=== PATIENT | male | born 1970 | race Caucasian/White ===

== ENCOUNTER → 2016-08-01 | Outpatient (CLI) | payer OTHER, BC ==
[~2016-08-01] MED LIST: ALBU1AER9 INH; HYDR25TA5 PO; LEVO150T9 PO; LSN40 PO; NRV/10 PO; OMEP20CA9 PO
[2016-08-01 13:10] LABS: HEMATOCRIT 42.8 % (42-52); MEAN CELL VOLUME 84.8 fL (80-100); MEAN CORPUSCULAR HEMOGLOBIN 26.1 pg (25-34); MEAN CORPUSCULAR HGB CONC 30.8 g/dl (32-36); MEAN PLATELET VOLUME 10.3 fL (7.4-10.4); PLATELET COUNT 277 K/uL (130-400); RED BLOOD COUNT 5.05 M/uL (4.7-6.1); WHITE BLOOD COUNT 7.38 K/uL (4.8-10.8)
[2016-08-01 13:25] LABS: ALT/SGPT 32 U/L (12-78); AST/SGOT 18 U/L (15-37); BLOOD UREA NITROGEN 11 mg/dl (7-18); BUN/CREATININE RATIO 12.2 (10-20); CALCIUM 8.5 mg/dl (8.5-10.1); CARBON DIOXIDE 31 mmol/L (21-32); CHLORIDE 105 mmol/L (98-107); CHOLESTEROL 127 mg/dl (0-200); CREATININE 0.92 mg/dl (0.60-1.40); GLUCOSE 86 mg/dl (70-99); POTASSIUM 4.5 mmol/L (3.5-5.1); SODIUM 139 mmol/L (136-145)
[2016-08-01 13:36] LABS: ALB/GLOB RATIO 0.9 (0.9-2); ALKALINE PHOSPHATASE 89 U/L (45-117); CHOLESTEROL/HDL RATIO 3.7; HDL CHOLESTEROL 34 mg/dl; LDL CHOLESTEROL CALCULATED 62 mg/dl; TRIGLYCERIDES 154 mg/dl (0-150); VERY LOW DENSITY LIPOPROT CALC 31 mg/dl
== END | disposition home or self-care (01) ==
LOC: C.LABBC 09:35
PROVIDERS: ATTEND Physician Assistant Medical
DX: Z00.00 Encounter for general adult medical examination without abnormal findings (principal); I12.9 Hypertensive chronic kidney disease with stage 1 through stage 4 chronic kidney disease, or unspecified chronic kidney disease; N18.9 Chronic kidney disease, unspecified; D64.9 Anemia, unspecified; K76.0 Fatty (change of) liver, not elsewhere classified; E03.9 Hypothyroidism, unspecified

== ENCOUNTER → 2017-04-20 | Outpatient (CLI) | payer OTHER ==
[2017-04-20 17:00] LABS: BASO % 0.3 %; BASO ABS # 0.03 K/uL (0-0.2); EOS % 1.5 %; EOS ABS # 0.15 K/uL (0-0.5); HEMATOCRIT 39.5 % (42-52); HEMOGLOBIN 12.5 g/dL (14.0-18.0); IG# 0.01 K/uL (0.00-0.02); LYMPH % 23.1 %; LYMPH ABS # 2.36 K/uL (1.2-3.4); MEAN CELL VOLUME 85.1 fL (80-100); MEAN CORPUSCULAR HEMOGLOBIN 26.9 pg (25-34); MEAN CORPUSCULAR HGB CONC 31.6 g/dl (32-36); MEAN PLATELET VOLUME 10.4 fL (7.4-10.4); MONO % 6.7 %; MONO ABS # 0.68 K/uL (0.11-0.59); NEUT % 68.3 %; NEUT ABS # 6.98 K/uL (1.4-6.5); PLATELET COUNT 340 K/uL (130-400); RED CELL DISTRIBUTION WIDTH CV 15.6 % (11.5-14.5); RED CELL DISTRIBUTION WIDTH SD 48.4 fL (36.4-46.3); WHITE BLOOD COUNT 10.21 K/uL (4.8-10.8)
[2017-04-20 17:07] LABS: BLOOD UREA NITROGEN 11 mg/dl (7-18); CALCIUM 9.2 mg/dl (8.5-10.1); CARBON DIOXIDE 32 mmol/L (21-32); CREATININE 0.99 mg/dl (0.60-1.40); GLUCOSE 120 mg/dl (70-99); POTASSIUM 3.7 mmol/L (3.5-5.1); SODIUM 139 mmol/L (136-145)
== END | disposition home or self-care (01) ==
LOC: C.LABBC 12:35
PROVIDERS: ATTEND Internal Medicine Geriatric Medicine
DX: R80.9 Proteinuria, unspecified (principal); E03.9 Hypothyroidism, unspecified; D64.9 Anemia, unspecified; I10 Essential (primary) hypertension

== ENCOUNTER → 2017-05-20 | Outpatient (CLI) | payer OTHER ==
[2017-05-20 14:28] LABS: HEMOGLOBIN A1C 6.2 % (4.5-5.6)
== END | disposition home or self-care (01) ==
LOC: C.LABBC 11:23
PROVIDERS: ATTEND Physician Assistant Medical
DX: R73.9 Hyperglycemia, unspecified (principal)

== ENCOUNTER 2021-01-10 09:35 | Inpatient (IN) ==
[2021-01-10] MEDS ORDERED: ALBUT/IPRATROP 3MG/0.5MG NEB 3 ML VIAL NEB ONE (09:49)
--- NOTE | 2021-01-10 10:17 | Emergency Department Note ---
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 (98-107) mmol/L Carbon Dioxide (21-32) mmol/L Anion Gap (3-11) BUN (7-18) mg/dl Creatinine (0.6-1.4) mg/dl Est Cr Clr Drug Dosing ml/min Est GFR ( Amer) ml/min Est GFR (Non-Af Amer) ml/min BUN/Creatinine Ratio (10-20) Glucose (70-99) mg/dl Lactate (0.4-2.0) mmol/L Calcium (8.5-10.1) mg/dl Magnesium (1.8-2.4) mg/dl Total Bilirubin (0.2-1) mg/dl AST (15-37) U/L ALT (12-78) U/L Alkaline Phosphatase (45-117) U/L Troponin I (0-0.045) ng/ml C-Reactive Protein (0-0.29) mg/dl NT-Pro-B Natriuret Pep (0-900) pg/ml Total Protein (6.4-8.2) gm/dl Albumin (3.4-5.0) gm/dl Globulin (2.5-4.0) gm/dl Albumin/Globulin Ratio (0.9-2) Procalcitonin (0-0.5) ng/ml Urine Color Yellow Urine Appearance Clear (Clear) Urine pH 5.5 (4.5-7.5) Ur Specific [place] 1.014 (1.000-1.030) Urine Protein 2+ H (Negative) Urine Glucose (UA) Negative (Negative) Urine Ketones Negative (Negative) Urine Blood Negative (Negative) Urine Nitrite Negative (Negative) Urine Bilirubin Negative (Negative) Urine Urobilinogen Negative (Negative) Ur Leukocyte Esterase Negative (Negative) Urine WBC (Auto) 0 (0-5) /hpf Urine RBC (Auto) 0-4 (0-4) /hpf U Hyaline Cast (Auto) 0 (0-5) /lpf U Epithel Cells (Auto) 0-5 (0-5) /lpf Urine Bacteria (Auto) Negative (Negative) Adenovirus (PCR) Not Detected (NotDetected) B. pertussis DNA (PCR) Not Detected (NotDetected) B.parapertussis DNA PCR Not Detected (NotDetected) C. pneumoniae DNA (PCR) Not Detected (NotDetected) Coronavirus OC43 (PCR) Not Detected (NotDetected) Coronavirus HKU1 (PCR) Not Detected (NotDetected) Coronavirus 229E (PCR) Not Detected (NotDetected) COVID-19 Eval Order SARS-CoV-2 (PCR) Not Detected (Negative) Coronavirus NL63 (PCR) Not Detected (NotDetected) Human Metapneumovir PCR Not Detected (NotDetected) Influenza Type A (PCR) Not Detected (NotDetected) Influenza Type B (PCR) Not Detected (NotDetected) M. pneumoniae (PCR) Not Detected (NotDetected) Parainfluenza 1 (PCR) Not Detected (NotDetected) Parainfluenza 2 (PCR) Not Detected (NotDetected) Parainfluenza 3 (PCR) Not Detected (NotDetected) Parainfluenza 4 (PCR) Not Detected (NotDetected) RSV (PCR) Not Detected (NotDetected) Entero/Rhino (PCR) Not Detected (NotDetected) Administered Medications Discontinued Medications Albuterol (Albut/Ipratrop 3mg/0.5mg Neb 3 Ml Vial) 12 ml NEB ONE ONE Stop: 01/10/21 09:50 Last Admin: 01/10/21 10:10 Dose: 12 ml Documented by: [id number] Furosemide (Furosemide 40 Mg/4 Ml Vial) 40 mg IV NOW STA Stop: 01/10/21 12:31 Last Admin: 01/10/21 12:56 Dose: 40 mg Documented by: [id number] Piperacillin Sod/Tazobactam Sod (Zosyn) 4.5 gm in 120 mls @ 240 mls/hr IV NOW ONE Stop: 01/10/21 11:04 Last Infusion: 01/10/21 12:49 Dose: 0 mls/hr Documented by: [id number] Admin: 01/10/21 10:56 Dose: 240 mls/hr Documented by: [id number] Imaging Data Radiologist's Impression: Chest X-Ray 01/10/21 09:49 XR chest 1V portable HISTORY: SEPSIS COMPARISON: Chest CTA 05/24/2020. FINDINGS: No pneumothorax. No pleural effusions. The heart remains mildly enlarged. There are patchy bibasilar densities. This likely represents a pneumonia. IMPRESSION: Small patchy bibasilar densities. This likely represents a pneumonia. ACT 112: Negative or not required by law. Electronically signed by: Kishore Kraft M.D. 01/10/2021 10:15 AM Discharge Plan Visit Data Chief Complaint: Shortness of Breath/Dyspnea Stated Complaint: CAN'T BREATHE - REF BY DOC ED Provider: Nvaeen Kern Discharge Problem: Pneumonia, Hypoxia, Acute respiratory acidosis, Acute respiratory distress Patient Disposition: Admitted As Inpatient Forms Stand Alone Forms: My [facility] Prescriptions Prescriptions: No Action albuterol sulfate 90 mcg/actuation HFA aerosol inhaler 2 puffs INH Q6H PRN (Reason: shortness of breath or wheezing) Qty: 18 RF: 3 lisinopril 40 mg tablet 40 mg PO QAM Qty: 90 RF: 3 metformin 500 mg tablet extended release 24 hr 500 mg PO BID Qty: 180 RF: 3 (DME) Accu-Chek Michelle Plus test strp Strip See Rx Instructions .ROUTE .MEDSUPPLY Qty: 50 RF: 5 levothyroxine 175 mcg tablet 175 mcg PO QAM Qty: 90 RF: 3 omeprazole 20 mg capsule,delayed release(DR/EC) 20 mg PO BID Qty: 180 RF: 3 atorvastatin [Lipitor] 20 mg tablet 20 mg PO HS RF: 0 carvedilol 6.25 mg tablet 6.25 mg PO BID RF: 0 furosemide 20 mg tablet 20 mg PO QAM RF: 0 spironolactone 25 mg tablet 12.5 mg PO QAM RF: 0 multivitamin Tablet 1 tab PO QAM RF: 0 Vitamin D3 500 Iu 500 units PO QAM RF: 0 Referrals Referrals: Luke Holloway DO [Primary Care Provider] -
[2021-01-10 10:32] LABS: Oxygen Saturation VBG 96.4 %; pH VBG 7.32 (7.36-7.41)
[2021-01-10] MEDS ORDERED: PIPERACILL/TAZOBAC CONSULT ACTIVE PRN (10:35)
[2021-01-10] MEDS ORDERED: PIPERACILLIN/TAZOBACTAM 4.5 GM/120 ML BAG IV ONE (10:35)
[2021-01-10 10:36] LABS: Hematocrit (blood only) 40.3 % (42-52); Hemoglobin 11.5 g/dL (14.0-18.0); Mean Corpuscular Hemoglobin 22.9 pg (25-34); Mean Corpuscular Hgb Conc 28.5 g/dL (32-36); Mean Corpuscular Volume 80.3 fL (80-100); Mean Platelet Volume 10.1 fL (7.4-10.4); Platelet Count 314 K/uL (130-400); RDW Coefficient of Variation 18.2 % (11.5-14.5); RDW Standard Deviation 53.4 fL (36.4-46.3); Red Blood Count 5.02 M/uL (4.7-6.1); White Blood Count 10.56 K/uL (4.8-10.8)
[2021-01-10 10:40] LABS: Partial Thromboplastin Time 25.6 Seconds (21.0-31.0); Prothrombin Time 10.6 Seconds (9.0-12.0)
[2021-01-10 10:44] LABS: Alanine Aminotransferase 38 U/L (12-78); Aspartate Aminotransferase 21 U/L (15-37); BUN Creatinine Ratio 14.7 (10-20); Blood Urea Nitrogen 13 mg/dl (7-18); Calcium 8.9 mg/dl (8.5-10.1); Carbon Dioxide 37 mmol/L (21-32); Chloride 103 mmol/L (98-107); Creatinine Clr Calc Pharmacy 143.9 ml/min; Est GFR (African American) 115.3 ml/min; Est GFR (Non-African American) 99.5 ml/min; Glucose 101 mg/dl (70-99); Magnesium 1.8 mg/dl (1.8-2.4); Potassium 4.1 mmol/L (3.5-5.1); Sodium 141 mmol/L (136-145)
[2021-01-10 10:49] LABS: Albumin Globulin Ratio 0.7 (0.9-2); Alkaline Phosphatase 81 U/L (45-117); Bilirubin,Total 0.3 mg/dl (0.2-1); Globulin 4.6 gm/dl (2.5-4.0); Total Protein 7.6 gm/dl (6.4-8.2); Troponin I < 0.015 ng/ml (0-0.045)
[2021-01-10 10:56] LABS: Basophils # (auto) 0.04 K/uL (0-0.2); Basophils % (auto) 0.4 %; Eosinophils # (auto) 0.51 K/uL (0-0.5); Eosinophils % (auto) 4.8 %; Immature Granulocytes # (auto) 0.02 K/uL (0.00-0.02); Immature Granulocytes % (auto) 0.2 %; Lymphocytes % (auto) 15.2 %; Monocytes # (auto) 0.86 K/uL (0.11-0.59); Monocytes % (auto) 8.1 %; Neutrophils # (auto) 7.53 K/uL (1.4-6.5); Neutrophils % (auto) 71.3 %; RBC Morphology Unremarkable
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
[2021-01-10] MEDS ORDERED: FUROSEMIDE 40 MG/4 ML VIAL IV STA (12:30)
[2021-01-10 12:42] LABS: D Dimer 540 ug/L FEU (0-500)
[2021-01-10 13:37] LABS: Adenovirus PCR Not Detected (NotDetected); Bordetella parapertussis PCR Not Detected (NotDetected); Bordetella pertussis PCR Not Detected (NotDetected); Chlamydia pneumoniae PCR Not Detected (NotDetected); Coronavirus 229E PCR Not Detected (NotDetected); Coronavirus CoV-2 (COVID19)PCR Not Detected (NotDetected); Coronavirus HKU1 PCR Not Detected (NotDetected); Coronavirus NL63 PCR Not Detected (NotDetected); Coronavirus OC43PCR Not Detected (NotDetected); Human Metapneumovirus PCR Not Detected (NotDetected); Influenza A PCR Not Detected (NotDetected); Influenza B PCR Not Detected (NotDetected); Mycoplasma pneumoniae PCR Not Detected (NotDetected); Parainfluenza Virus 1 PCR Not Detected (NotDetected); Parainfluenza Virus 2 PCR Not Detected (NotDetected); Parainfluenza Virus 3 PCR Not Detected (NotDetected); Parainfluenza Virus 4 PCR Not Detected (NotDetected); Respiratory Syncytial VirusPCR Not Detected (NotDetected); Rhinovirus/Enterovirus PCR Not Detected (NotDetected)
[2021-01-10 13:39] LABS: Appearance Urine Clear (Clear); Bacteria Urine Automated Negative (Negative); Bilirubin Urine Negative (Negative); Blood Urine Negative (Negative); Cast Urine Automated 0 /lpf (0-5); Color Urine Yellow; Epithelial Cell Urine Auto 0-5 /lpf (0-5); Glucose Urine UA Negative (Negative); Ketones Urine Negative (Negative); Leukocyte Esterase Urine Negative (Negative); Nitrite Urine Negative (Negative); Protein Urine 2+ (Negative); RBC Urine Automated 0-4 /hpf (0-4); Specific Gravity Urine 1.014 (1.000-1.030); Urobilinogen Urine Negative (Negative); WBC Urine Automated 0 /hpf (0-5); pH Urine 5.5 (4.5-7.5)
[2021-01-10] MEDS ORDERED: ACETAMINOPHEN 500 MG TAB PO STA (13:59)
--- NOTE | 2021-01-10 16:04 | Electrocardiogram Report ---
Test Reason : Blood Pressure : / mmHG Vent. Rate : 075 BPM Atrial Rate : 075 BPM P-R Int : 152 ms QRS Dur : 086 ms QT Int : 408 ms P-R-T Axes : 039 -07 047 degrees QTc Int : 455 ms Normal sinus rhythm Poor R wave progression, consider anterior NC vs. lead placement vs. LVH Abnormal ECG When compared with ECG of 24-MAY-2020 10:13, No significant change was found Confirmed by Naveen Chatterjee ([id number]) on 01/10/2021 4:04:07 PM Referred By: Luke Holloway Confirmed By:Naveen Chatterjee
[2021-01-10] MEDS ORDERED: POLYETHYLENE (MIRALAX) 17 GM PACK PO PRN (17:09)
[2021-01-10] MEDS ORDERED: ONDANSETRON INJ 2 MG/ML 2 ML VIAL IV PRN (17:09)
[2021-01-10] MEDS: carvediloL 6.25 MG TAB PO SCH (21:34)
[2021-01-10] MEDS: ATORVASTATIN 20 MG TAB PO SCH (21:34)
[2021-01-10] MEDS: PANTOprazole 40 MG TAB PO SCH (21:35)
[2021-01-10] MEDS ORDERED: hydrALAZINE HCL 20 MG/ML VIAL IV PRN (22:22)
[2021-01-11] MEDS: LEVOTHYROXINE SODIUM 175 MCG TABLET PO SCH (05:55)
[2021-01-11 07:04] LABS: Hematocrit (blood only) 39.7 % (42-52); Hemoglobin 11.1 g/dL (14.0-18.0); Mean Corpuscular Hemoglobin 22.8 pg (25-34); Mean Corpuscular Volume 81.5 fL (80-100); Mean Platelet Volume 9.9 fL (7.4-10.4); Platelet Count 308 K/uL (130-400); RDW Coefficient of Variation 18.3 % (11.5-14.5); RDW Standard Deviation 55.1 fL (36.4-46.3); Red Blood Count 4.87 M/uL (4.7-6.1); White Blood Count 9.57 K/uL (4.8-10.8)
[2021-01-11 07:34] LABS: BUN Creatinine Ratio 15.3 (10-20); Calcium 8.9 mg/dl (8.5-10.1); Creatinine Clr Calc Pharmacy 140.6 ml/min; Est GFR (African American) 115.3 ml/min; Est GFR (Non-African American) 99.5 ml/min; Magnesium 2.1 mg/dl (1.8-2.4); Potassium 4.1 mmol/L (3.5-5.1)
[2021-01-11 07:48] LABS: Basophils # (auto) 0.03 K/uL (0-0.2); Basophils % (auto) 0.3 %; Eosinophils # (auto) 0.44 K/uL (0-0.5); Eosinophils % (auto) 4.6 %; Immature Granulocytes # (auto) 0.01 K/uL (0.00-0.02); Immature Granulocytes % (auto) 0.1 %; Lymphocytes # (auto) 1.28 K/uL (1.2-3.4); Lymphocytes % (auto) 13.4 %; Monocytes # (auto) 0.77 K/uL (0.11-0.59); Neutrophils # (auto) 7.04 K/uL (1.4-6.5); Neutrophils % (auto) 73.6 %
[2021-01-11] MEDS: carvediloL 6.25 MG TAB PO SCH ×2 (08:02→20:50)
[2021-01-11] MEDS: MULTIVITAMIN TAB PO SCH (08:02)
[2021-01-11] MEDS: CHOLECALCIFEROL 400 UNITS 10 MCG TAB PO SCH (08:02)
[2021-01-11] MEDS: lisinopril 40 MG TAB PO SCH (08:02)
[2021-01-11] MEDS: PANTOprazole 40 MG TAB PO SCH ×2 (08:02→20:50)
[2021-01-11] MEDS: FUROSEMIDE 40 MG in SYRINGE 0 ML IV SCH (08:04)
[2021-01-11] MEDS: ENOXAPARIN INJ 40 MG/0.4 ML SYR SQ SCH (08:04)
[2021-01-11] MEDS: ACETAMINOPHEN 325 MG TAB PO PRN ×2 (09:05→19:12)
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
--- NOTE | 2021-01-11 10:44 | Hospitalist Progress Note ---
Date of Service January 11, 2021 Assessment & Plan (1) Acute on chronic congestive heart failure: Plan: Responding well to diuresis Cardiology consulted and feels that this is most likely obesity hypoventilation syndrome as a primary culprit with some fluid overload Continue to follow I's and O's and cumulative fluid Fluid restrict to 1500ml secondary to hyponatremia Continue to monitor PRP (2) Acute respiratory failure with hypoxia: Plan: Secondary to CHF as above as well as obesity hypoventilation syndrome Aim O2 sats > 94%, Use BiPAP as needed throughout today, napping and sleeping Follows with Dr. Ivey in the sleep lab. CPAP settings outpatient area 12 cm of H2O COVID-19 and biofire negative. CXR per my read appears more central pulmonary edema than infective. No consolidation and procalcitonin/WBC negative therefore further antibiotics discontinued. D-dimer 550; clinically has low likelihood of PE give alternative etiology and hemodynamic stability therefore will defer CT for PE at this time. Continue diuresis Continue CPAP as tolerated (3) Hypertension: Plan: Continue carvedilol 6.25mg PO BID Continue diuresis (4) Obstructive sleep apnea: Plan: CPAP 12 cm H2O Monitor on telemetry (5) Hyperlipidemia: Plan: Continue atorvastatin 20mg PO HS (6) Hypothyroidism: Plan: Continue Levothyroxine 175mcg PO daily (7) Type 2 diabetes mellitus: Plan: HbA1C 6.5 in 08/2019, repeat with AM labs Hold metformin Insulin for correction factor only Patient refusing Accu-Cheks. Continue orders. Document patient refusal (8) Gastroesophageal reflux disease: Plan: Switch omeprazole for pantoprazole per hospital formulary Plan: VTE Prophylaxis - Lovenox 40mg SQ daily Diet - Low Na, heart healthy, T2DM, fluid restrict 1500ml Disposition - admit to PCU Admission and Anticipated Discharge Date Admission Date: January 10, 2021 Subjective Attending: Dr. Martinez Patient seen and examined bedside. He is an obese male 46.9 kg/m. He has had shortness of breath throughout the day. He was on supplemental oxygen and continue to have hypoxia. He was converted to CPAP and did well. Values were reviewed and patient could comfortably have 1 L of tidal volume with deep inspiration. He does have cough with deep inspiration and with speech. Covid testing was negative. Bio fire test was negative. Chest x-ray shows patchy bibasilar densities. CT scan without contrast obtained.Bibasilar densities were nonspecific but favored atelectasis. Procalcitonin was negative. proBNP was only 33pg/ml. Patient somewhat improved with diuresis. Patient denies any fever or chills. He does have a cough but denies sputum production. He has no other acute complaints. Review of Systems Review of Systems: All systems reviewed & are unremarkable except as noted in Subjective Physical Exam Physical Exam: GENERAL : No acute distress EYES: No icterus, gaze conjugate NOSE: No evidence of epistaxis MOUTH: No lesions or candidiasis NECK: Supple LUNGS: Bibasilar crackles. Cough with deep inspiration. No bronchospasm tiago reciated HEART: Distant heart sounds that are regular, rate controlled ABDOMEN: Soft, NT, ND, BS Present EXTREMITIES: No LE edema, pedal pulses intact NEURO: A&OX3 Results & Data Results & Data ([facility]) Vital Signs (Past 12 Hours) Vital Signs Temp Pulse Pulse Resp BP Pulse Ox 01/11/21 08:00 36.6 C 76 81 24 173/72 H 91 01/11/21 03:44 36.8 C 79 20 147/84 H 92 01/11/21 02:26 70 19 96 01/11/21 01:11 70 01/11/21 00:00 37.1 C 75 20 137/77 97 Laboratory Results 01/11/21 06:31 01/11/21 06:[address] 01/11/21 10:43 CT chest diagnostic wo con CT DOSE: 1197.86 mGy.cm HISTORY: Hypoxia, abnormal CXR TECHNIQUE: Multiaxial CT images of the chest were performed without contrast. A dose lowering technique was utilized adhering to the principles of ALARA. COMPARISON: Chest x-ray 01/10/2021. Chest CTA 05/24/2020. FINDINGS: Stable prominent right paratracheal lymph node. No hilar lymphadenopathy. Normal caliber thoracic aorta. The heart is normal in size. Normal esophagus. Mild bilateral gynecomastia. Mild hepatic steatosis. The visualized spleen is unremarkable. Stable mild nodular thickening within the right adrenal gland. Prominent extrapleural fat within the lung bases remains unchanged. Trace right pleural effusion. No pericardial effusion. No fractures within the visualized osseous structures. No pneumothorax. The central airways are patent. Small focal densities within the lower lobes posteriorly, right greater than left. This is nonspecific but favors atelectasis. A pneumonia could also have a similar appearance in the appropriate clinical setting. The central airways are patent. IMPRESSION: 1. Bibasilar densities are nonspecific but favor atelectasis. A pneumonia is considered less likely but not entirely excluded. 2. Hepatic steatosis. ACT 112: Negative or not required by law. Electronically signed by: Kishore Kraft M.D. 01/11/2021 11:30 AM PG Care Time/CCT Total # of Minutes Spent Total Time Spent with Patient: Total time spent is greater than 50% in coordination of care (as documented) at patient's floor/unit and/or counseling patient: 25 minutes Coding Level of Care Code 31115 Subseq Hosp Care Lvl 2 Diagnoses Acute on chronic congestive heart failure I50.9 Acute respiratory failure with hypoxia J96.01 Hypertension I10 Obstructive sleep apnea G47.33 Hyperlipidemia E78.5 Hypothyroidism E03.9 Type 2 diabetes mellitus E11.9 Gastroesophageal reflux disease K21.9 Time Spent (min) 25
--- NOTE | 2021-01-11 11:32 | CT Scan Report ---
CT chest diagnostic wo con CT DOSE: 1197.86 mGy.cm HISTORY: Hypoxia, abnormal CXR TECHNIQUE: Multiaxial CT images of the chest were performed without contrast. A dose lowering techni que was utilized adhering to the principles of ALARA. COMPARISON: Chest x-ray 01/10/2021. Chest CTA 05/24/2020. FINDINGS: Stable prominent right paratracheal lymph node. No hilar lymphadenopathy. Normal caliber th oracic aorta. The heart is normal in size. Normal esophagus. Mild bilateral gynecomastia. Mild hepati c steatosis. The visualized spleen is unremarkable. Stable mild nodular thickening within the right a drenal gland. Prominent extrapleural fat within the lung bases remains unchanged. Trace right pleural effusion. No pericardial effusion. No fractures within the visualized osseous structures. No pneumot horax. The central airways are patent. Small focal densities within the lower lobes posteriorly, righ t greater than left. This is nonspecific but favors atelectasis. A pneumonia could also have a simila r appearance in the appropriate clinical setting. The central airways are patent. IMPRESSION: 1. Bibasilar densities are nonspecific but favor atelectasis. A pneumonia is considered less likely b ut not entirely excluded. 2. Hepatic steatosis. ACT 112: Negative or not required by law. Electronically signed by: Kishore Kraft M.D. 01/11/2021 11:30 AM
[2021-01-11] MEDS ORDERED: FUROSEMIDE 40 MG in SYRINGE 0 ML IV ONE (20:00)
[2021-01-11] MEDS: ATORVASTATIN 20 MG TAB PO SCH (20:50)
[2021-01-12] MEDS: LEVOTHYROXINE SODIUM 175 MCG TABLET PO SCH (05:41)
[2021-01-12 08:41] LABS: BUN Creatinine Ratio 18.6 (10-20); Calcium 9.2 mg/dl (8.5-10.1); Creatinine Clr Calc Pharmacy 138.9 ml/min; Est GFR (African American) 114.7 ml/min; Potassium 4.6 mmol/L (3.5-5.1)
[2021-01-12] MEDS: ACETAMINOPHEN 325 MG TAB PO PRN ×2 (09:13→19:38)
[2021-01-12] MEDS: MULTIVITAMIN TAB PO SCH (09:14)
[2021-01-12] MEDS: CHOLECALCIFEROL 400 UNITS 10 MCG TAB PO SCH (09:14)
[2021-01-12] MEDS: PANTOprazole 40 MG TAB PO SCH ×2 (09:14→22:39)
[2021-01-12] MEDS: carvediloL 6.25 MG TAB PO SCH ×2 (09:14→22:39)
[2021-01-12] MEDS: lisinopril 40 MG TAB PO SCH (09:15)
[2021-01-12] MEDS: ENOXAPARIN INJ 40 MG/0.4 ML SYR SQ SCH (09:15)
[2021-01-12] MEDS: FUROSEMIDE 40 MG in SYRINGE 0 ML IV SCH (10:34)
--- NOTE | 2021-01-12 12:56 | Cardiology Progress Note ---
Date of Service January 12, 2021 Assessment & Plan (1) Acute respiratory failure with hypoxia: (2) Acute on chronic heart failure with preserved ejection fraction (HFpEF): (3) CARLITOS (obstructive sleep apnea): (4) Obesity: Plan: I think the patient has had a good diuresis. He has lost approximately 12 pounds since admission. Believe that he is euvolemic at this point. I started him on oral Lasix 40 mg twice daily and discontinue the IV version. It is of concern that he remains hypoxic and perhaps a course of steroids may be beneficial. Pulmonary is following the case. Admission and Anticipated Discharge Date Admission Date: January 10, 2021 Subjective The patient had an uneventful night. He diuresed through the night and has no new complaints. He is still hypoxic on room air. Review of Systems Review of Systems: Review of Systems: See HPI for pertinent positives. All other 10 point review of systems are negative. Physical Exam Physical Exam: General: no acute distress and stated age Head: normocephalic, no masses, lesions, tenderness or abnormalities Eyes: conjunctiva are pink and non-injected, sclera clear Neck: supple, no adenopathy, no bruits, normal jugular venous pulse, no hepatojugular reflux Chest: normal shape and normal respiratory effort Lungs: clear to auscultation and percussion Cardiac Exam: - regular rate & rhythm, no murmurs gallops or rubs - normal S1, normal S2 Pulses: 2(+) throughout Abdomen: abdomen soft, non-tender, no abnormal masses and no hepatosplenomegaly Musculoskeletal: no gait disturbance, no joint inflammation, no deforming arthritis Extremities: no edema and no cyanosis Neuro: grossly normal exam Results & Data ([facility]) Vital Signs (Past 12 Hours) Vital Signs Temp Pulse Pulse Resp BP Pulse Ox 01/12/21 11:35 36.8 C 86 22 133/76 92 01/12/21 08:37 36.4 C L 80 20 138/70 95 01/12/21 03:55 36.7 C 84 20 160/90 H 94 01/12/21 03:19 80 24 94 Laboratory Results Laboratory Results - last 24 hr 01/11/21 01/11/21 01/12/21 16:18 20:30 06:20 Sodium Potassium Chloride Carbon Dioxide Anion Gap BUN Creatinine Est Cr Clr Drug Dosing Est GFR ( Amer) Est GFR (Non-Af Amer) BUN/Creatinine Ratio Glucose POC Glucose 114 H 123 H 113 H Calcium 01/12/21 01/12/21 08:04 11:51 Sodium 134 L Potassium 4.6 Chloride 94 L Carbon Dioxide 40 H Anion Gap 1.0 L BUN 17 Creatinine 0.89 Est Cr Clr Drug Dosing 138.9 Est GFR ( Amer) 114.7 Est GFR (Non-Af Amer) 99.0 BUN/Creatinine Ratio 18.6 Glucose 152 H POC Glucose 128 H Calcium 9.2 Medications Administered Current Inpatient Medications Acetaminophen (Acetaminophen 325 Mg Tab) 650 mg PO Q4H PRN PRN Reason: Pain or Fever Stop: 02/09/21 17:08 Last Admin: 01/12/21 09:13 Dose: 650 mg Documented by: Atorvastatin Calcium (Atorvastatin 20 Mg Tab) 20 mg PO HS [facility] Stop: 02/09/21 20:59 Last Admin: 01/11/21 20:50 Dose: 20 mg Documented by: Carvedilol (Carvedilol 6.25 Mg Tab) 6.25 mg PO BID [facility] Stop: 02/09/21 20:59 Last Admin: 01/12/21 09:14 Dose: 6.25 mg Documented by: Enoxaparin Sodium (Enoxaparin Inj 40 Mg/0.4 Ml Syr) 40 mg SQ QAM [facility] Stop: 02/10/21 08:59 Last Admin: 01/12/21 09:15 Dose: 40 mg Documented by: Hydralazine HCl (Hydralazine Hcl 20 Mg/Ml Vial) 10 mg IV Q4H PRN PRN Reason: sBP > 180 Stop: 02/09/21 22:21 Furosemide 40 mg/ Syringe 4 mls @ 4 mls/[facility] [place] Stop: 02/10/21 08:59 Last Admin: 01/12/21 10:34 Dose: 4 mls/min Documented by: Levothyroxine Sodium (Levothyroxine Sodium 175 Mcg Tablet) 175 mcg PO DAILYBB [facility] Stop: 02/10/21 06:29 Last Admin: 01/12/21 05:41 Dose: 175 mcg Documented by: Lisinopril (Lisinopril 40 Mg Tab) 40 mg PO QAM [facility] Stop: 02/10/21 08:59 Last Admin: 01/12/21 09:15 Dose: 40 mg Documented by: Multivitamins (Multivitamin Tab) 1 tab [facility] [place] Stop: 02/10/21 08:59 Last Admin: 01/12/21 09:14 Dose: 1 tab Documented by: Ondansetron HCl (Ondansetron Inj 2 Mg/Ml 2 Ml Vial) 4 mg IV Q6H PRN PRN Reason: Nausea Stop: 02/09/21 17:08 Pantoprazole Sodium (Pantoprazole 40 Mg Tab) 40 mg PO BID [facility] Stop: 02/09/21 20:59 Last Admin: 01/12/21 09:14 Dose: 40 mg Documented by: Polyethylene Glycol (Polyethylene (Miralax) 17 Gm Pack) 17 gm PO DAILY PRN PRN Reason: Constipation Stop: 02/09/21 17:08 Vitamin D (Cholecalciferol 400 Units 10 Mcg Tab) 400 units [facility] [place] Stop: 02/10/21 08:59 Last Admin: 01/12/21 09:14 Dose: 400 units Documented by:
--- NOTE | 2021-01-12 17:35 | Hospitalist Progress Note ---
Date of Service January 12, 2021 Assessment & Plan (1) Acute on chronic congestive heart failure: Plan: Responding well to diuresis Cardiology consulted and feels that this is most likely obesity hypoventilation syndrome as a primary culprit with some fluid overload Continue to follow I's and O's and cumulative fluid Fluid restrict to 1500ml secondary to hyponatremia Continue to monitor PRP proBNP was not elevated on admission No signs of chronic CHF such as edema or chronic venous stasis Preserved left ventricular ejection fraction on echocardiogram (2) Acute respiratory failure with hypoxia: Plan: Initially secondary to secondary to CHF as above as well as obesity hypoventilation syndrome ABGs are pending -suspect chronic hypercapnia secondary to obesity hypoventilation syndrome/CARLITOS Patient has eosinophilia. No record of IgE, IgG, IgM We will check AHMET, ANCA, antitrypsin [address] Ivey in the sleep lab. CPAP settings outpatient area 12 cm of H2O COVID-19 and biofire negative. CXR with some atelectasis but no consolidation and procalcitonin/WBC negative therefore further antibiotics discontinued. There is not any parenchymal infiltrate to be suggestive of eosinophilic pneumonia D-dimer 550; clinically has low likelihood of PE give alternative etiology and hemodynamic stability therefore will defer CT for PE at this time. Continue diuresis - patient currently 3 L negative for the hospital stay No significant bronchospasm so we will hold off on steroids at this time. Doubt benefit to diagnostic bronchoscopy Increase positive pressure changes to be BiPAP 14/7 with a targeted titration of a minute volume of 8 L Repeat ABG in the morning If no improvement, consult pulmonology. (3) Hypertension: Plan: Continue carvedilol 6.25mg PO BID Continue diuresis (4) Obstructive sleep apnea: Plan: CPAP 12 cm H2O as an outpatient Has been on BiPAP 12/[address] patient on BiPAP 14/7 to start and aim for minute volume of 8 L Monitor on telemetry Outpatient follow-up with Dr. Ivey (5) Hyperlipidemia: Plan: Continue atorvastatin 20mg PO HS (6) Hypothyroidism: Plan: Continue Levothyroxine 175mcg PO daily (7) Type 2 diabetes mellitus: Plan: HbA1C 6.5 in 08/2019, repeat with AM labs Hold metformin BSG in the low 100s Patient refusing Accu-Cheks. Continue orders. Document patient refusal (8) Gastroesophageal reflux disease: Plan: Switch omeprazole for pantoprazole per hospital formulary Plan: VTE Prophylaxis - Lovenox 40mg SQ daily Diet - Low Na, heart healthy, T2DM, fluid restrict 1500ml Disposition -continue to monitor in PCU. Hopeful discharge home when medically stable Admission and Anticipated Discharge Date Admission Date: January 10, 2021 Subjective Attending: Dr. Martinez Patient seen at bedside. He continues to be somewhat slow to respond but is diuresing well. He is -3 L cumulatively this admission. Patient states he st ill short of breath but is saturating at 94%. Labs reviewed. Patient has eosinophilia and also hypercapnia with a serum CO2 of 40. Patient denies any prior pulmonary history. He does follow with Dr. Ivey for obstructive sleep apnea. He denies any previous pulmonary function testing. Patient does have a 75 pack smoking history (3 packs a day x25 years). He quit smoking 11 years ago when his son was born. Patient also denies any significant cardiac disease. Patient denies any cough. He states he has sputum production which is clear to yellow in color. He has no fever or chills. He has no night sweats. He denies any hemoptysis. He has no other acute complaints aside from some malaise and shortness of breath. Review of Systems Review of Systems: All systems reviewed & are unremarkable except as noted in Subjective Physical Exam Physical Exam: GENERAL : No acute distress EYES: No icterus, gaze conjugate NOSE: No evidence of epistaxis MOUTH: No lesions or candidiasis NECK: Supple LUNGS: Some crackles at the bases. No overt bronchospasm or rhonchi. HEART: Regular, rate controlled ABDOMEN: Soft, NT, ND, BS Present EXTREMITIES: No LE edema, pedal pulses intact and equal bilaterally. Some minimal venous changes. No open wounds or sores. NEURO: A&OX3 but slow to respond to some questions. Results & Data Results & Data ([facility]) Vital Signs (Past 12 Hours) Vital Signs Temp Pulse Pulse Resp BP Pulse Ox 01/12/21 15:00 37.1 C 74 84 18 141/77 H 92 01/12/21 11:35 36.8 C 86 22 133/76 92 01/12/21 08:37 36.4 C L 80 20 138/70 95 01/12/21 08:00 80 Laboratory Results 01/11/21 06:31 01/12/21 08:04 01/10/21 01/12/21 09:59 16:42 ABG pH Cancelled ABG pCO2 Cancelled ABG pO2 Cancelled ABG HCO3 Cancelled ABG O2 Saturation Cancelled ABG Base Excess Cancelled VBG pH 7.32 L VBG pCO2 78 H VBG pO2 93 VBG HCO3 39 VBG O2 Saturation 96.4 VBG Base Excess 10.0 ABGs at 1642 clotted. These are being redrawn. Diagnostic Findings Most recent diagnostic was CT chest without contrast. Please see previous report or synapse. PG Care Time/CCT Total # of Minutes Spent Total Time Spent with Patient: Total time spent is greater than 50% in co ordination of care (as documented) at patient's floor/unit and/or counseling patient: 40 minutes including [id number] with patient and telephone calls with Nikki Coding Level of Care Code 23624 Subseq Hosp Care Lvl 3 Diagnoses Acute on chronic congestive heart failure I50.9 Acute respiratory failure with hypoxia J96.01 Hypertension I10 Obstructive sleep apnea G47.33 Hyperlipidemia E78.5 Hypothyroidism E03.9 Type 2 diabetes mellitus E11.9 Gastroesophageal reflux disease K21.9 Time Spent (min) 40
--- NOTE | 2021-01-12 18:58 | CT Scan Report ---
CT OF THE HEAD WITHOUT CONTRAST CLINICAL HISTORY: Hx Mchenry Palsy, confusion COMPARISON STUDY: Head CT and CTA of the head May 24, 2020. CT DOSE: 773.57 mGy.cm TECHNIQUE: Helical axial images of the head were obtained without IV contrast. Automated exposure con trol was utilized for the study. A dose lowering technique was utilized adhering to the principles o f ALARA. FINDINGS: This exam is mildly compromised by artifact. Subtle white matter hypodensities are nonspeci fic but favor small vessel disease. No acute intracranial hemorrhage, midline shift or mass effect is present. The ventricular system is unremarkable. The basal cisterns are patent. No extra-axial colle ctions are present. There are no findings to suggest acute dural sinus thrombosis or acute territoria l infarct. No significant calvarial abnormalities are present. Visualized portions of the sinuses and mastoid air cells are clear. IMPRESSION: 1. No acute intracranial findings. Exam mildly compromised by artifact. 2. Subtle white matter hypodensities which are nonspecific but may reflect small vessel disease. ACT 112: Negative or not required by law. Electronically signed by: Abhishek Aquino M.D. 01/12/2021 6:57 PM
[2021-01-12 19:40] LABS: HCO3 ABG 43 mmol/L (19-24); Oxygen Saturation ABG 90.7 % (90-95); PCO2 ABG 79 mmHg (35-46); PO2 ABG 58 mmHg (80-95); pH ABG 7.35 (7.35-7.45)
[2021-01-12 19:41] LABS: Allen Test Pos (Pos)
[2021-01-12] MEDS: FUROSEMIDE 40 MG TAB PO SCH (22:37)
[2021-01-12] MEDS: ATORVASTATIN 20 MG TAB PO SCH (22:39)
[2021-01-13] MEDS: LEVOTHYROXINE SODIUM 175 MCG TABLET PO SCH (05:57)
[2021-01-13 06:17] LABS: Basophils # (auto) 0.02 K/uL (0-0.2); Basophils % (auto) 0.2 %; Eosinophils # (auto) 0.36 K/uL (0-0.5); Eosinophils % (auto) 3.2 %; Hematocrit (blood only) 40.7 % (42-52); Hemoglobin 11.3 g/dL (14.0-18.0); Immature Granulocytes # (auto) 0.02 K/uL (0.00-0.02); Immature Granulocytes % (auto) 0.2 %; Lymphocytes # (auto) 1.63 K/uL (1.2-3.4); Lymphocytes % (auto) 14.7 %; Mean Corpuscular Hemoglobin 22.9 pg (25-34); Mean Corpuscular Hgb Conc 27.8 g/dL (32-36); Mean Corpuscular Volume 82.4 fL (80-100); Mean Platelet Volume 10.3 fL (7.4-10.4); Monocytes # (auto) 0.85 K/uL (0.11-0.59); Monocytes % (auto) 7.7 %; Neutrophils # (auto) 8.21 K/uL (1.4-6.5); Platelet Count 335 K/uL (130-400); RDW Coefficient of Variation 17.2 % (11.5-14.5); RDW Standard Deviation 51.8 fL (36.4-46.3); Red Blood Count 4.94 M/uL (4.7-6.1); White Blood Count 11.09 K/uL (4.8-10.8)
[2021-01-13 06:55] LABS: BUN Creatinine Ratio 20.3 (10-20); Calcium 9.4 mg/dl (8.5-10.1); Creatinine Clr Calc Pharmacy 132.8 ml/min; Est GFR (African American) 111.2 ml/min; Potassium 4.6 mmol/L (3.5-5.1)
[2021-01-13 07:46] LABS: Estimated Average Glucose 148 mg/dl; Hemoglobin A1C 6.8 % (4.5-5.6)
[2021-01-13] MEDS: CHOLECALCIFEROL 400 UNITS 10 MCG TAB PO SCH (08:23)
[2021-01-13] MEDS: carvediloL 6.25 MG TAB PO SCH ×2 (08:23→19:53)
[2021-01-13] MEDS: FUROSEMIDE 40 MG TAB PO SCH ×2 (08:23→16:39)
[2021-01-13] MEDS: lisinopril 40 MG TAB PO SCH (08:23)
[2021-01-13] MEDS: PANTOprazole 40 MG TAB PO SCH ×2 (08:23→19:53)
[2021-01-13] MEDS: ENOXAPARIN INJ 40 MG/0.4 ML SYR SQ SCH (08:24)
[2021-01-13] MEDS: MULTIVITAMIN TAB PO SCH (08:24)
[2021-01-13 10:29] LABS: Base Excess VBG 14.9 mEq/L; Oxygen Saturation VBG 86.3 %; pH VBG 7.32 (7.36-7.41)
--- NOTE | 2021-01-13 13:40 | Hospitalist Progress Note ---
Date of Service January 13, 2021 Assessment & Plan (1) Acute on chronic congestive heart failure: Plan: Cardiology consulted and feels that this is most likely obesity hypoventilation syndrome as a primary culprit with some fluid overload Continue to follow I's and O's and cumulative fluid Fluid restrict to 1500ml secondary to hyponatremia Continue to monitor PRP proBNP was not elevated on admission No signs of chronic CHF such as edema or chronic venous stasis Preserved left ventricular ejection fraction on echocardiogram Most likely carbon dioxide retention (2) Acute respiratory failure with hypoxia: Plan: Patient has eosinophilia. No record of IgE, IgG, IgM AHMET, ANCA, alpha antitrypsin 1, and IgE are pending Follows with Dr. Ivey in the sleep lab. CPAP settings outpatient area 12 cm of H2O COVID-19 and biofire negative. CXR with some atelectasis but no consolidation and procalcitonin/WBC negative therefore further antibiotics discontinued. There is not any parenchymal infiltrate to be suggestive of eosinophilic pneumonia D-dimer 550; clinically has low likelihood of PE give alternative etiology and hemodynamic stability therefore will defer CT for PE at this time. No significant bronchospasm so we will hold off on steroids at this time. Doubt benefit to diagnostic bronchoscopy Increased positive pressure changes to be BiPAP 14/7 with a targeted titration of a minute volume of 8 L last night the patient was kept on CPAP New order for BiPAP entered today 14/7 with a targeted titration for minute volume of 10 to 12 L No further ABGs required Will follow daily VBG and serum CO2 (3) Hypertension: Plan: Continue carvedilol 6.25mg PO BID Continue diuresis Cardiology on board and following (4) Obstructive sleep apnea: Plan: CPAP 12 cm H2O as an outpatient Has been on BiPAP 12/[address] patient on BiPAP 14/7 to start and aim for minute volume of 10-12 L Continue to monitor on telemetry as he is at risk for arrhythmia secondary to hypoxia Outpatient follow-up with Dr. Ivey (5) Hyperlipidemia: Plan: Continue atorvastatin 20mg PO HS (6) Hypothyroidism: Plan: Continue Levothyroxine 175mcg PO daily (7) Type 2 diabetes mellitus: Plan: HbA1C 6.5 in 08/2019, repeat with AM labs Hold metformin BSG in the low 100s Patient refusing Accu-Cheks. Continue orders. Document patient refusal (8) Gastroesophageal reflux disease: Plan: Switch omeprazole for pantoprazole per hospital formulary Plan: VTE Prophylaxis - Lovenox 40mg SQ daily Diet - Low Na, heart healthy, T2DM, fluid restrict 1500ml Disposition -continue to monitor in PCU due to risk of arrhythmia secondary to hypoxia. Hopeful discharge home when medically stable Admission and Anticipated Discharge Date Admission Date: January 10, 2021 Supervising Physician Co-Signing Physician Notes Attending Attestation - Pt seen and examined, chart reviewed, care plan d/w SHEYLA Varma. I agree w/ the barnes components of his documentation. Patient sitting in chair during visit. He was sleepy but able to answer all questions. was facetiming with him. She had numerous questions about care plan. We discussed BIPAP in jessica of CPAP due to CO2 retention. We discussed that CO2 retention could be contributing to his chronic fatigue. mentioned chronic headaches, sometimes upon awakening. Exam - gen - NAD, obese neck - no JVD mouth - MMM heart - RRR, s1 s2 lungs - CTA b/l, decreased BS bases abd - soft NT ext - no edema neuro - no asterixis A/P: 1. acute hypercarbic/hypoxic respiratory failure 2. CARLITOS - agree with BIPAP tonight and probable Trilogy at d/c 3. probable OHS 4. acute/chronic right-sided CHF - volume status improved; back to PO diuretics; appreciate cards consult 5. chronic fatigue - likely 2nd to poorly controlled CARLITOS?; can't exclude other factors 6. mild borderline microcytic anemia - check Fe studies am 7. check ammonia in am Yuri Pedraza MD Subjective Attending: Dr. Pedraza Patient seen and examined at bedside. Overnight he was kept on CPAP at 10 cm of H2O. Will reconfirm order for BiPAP tonight to maintain minutes volume of 10 to 12 L. Suspect the patient will need AVAPS on discharge. Patient with no chest pain or tightness. Continues to have shortness of breath. Continues to be somewhat lethargic. Unable to obtain ABG this morning. VBG as well as serum CO2 remain elevated regarding carbon dioxide. Suspect that a portion of patient's lethargy is CO2 narcosis. Patient denies any chest pain or tightness. No cough or sputum production. No nausea or vomiting. No other acute complaints. Review of Systems Review of Systems: All systems reviewed & are unremarkable except as noted in Subjective Physical Exam Physical Exam: GENERAL : No acute distress. Somewhat lethargic EYES: No icterus, gaze conjugate NOSE: No evidence of epistaxis MOUTH: No lesions or candidiasis NECK: Supple LUNGS: CTA B/L, no wheezes, rales or rhonchi. Minimal inspiratory effort. HEART: Regular, rate controlled ABDOMEN: Soft, NT, ND, BS Present EXTREMITIES: No LE edema, pedal pulses intact NEURO: A&OX3 Results & Data Results & Data ([facility]) Vital Signs (Past 12 Hours) Vital Signs Temp Pulse Pulse Resp BP Pulse Ox 01/13/21 13:03 36.7 C 71 19 120/70 96 01/13/21 11:03 70 23 97 01/13/21 08:18 37 C 85 21 148/82 H 90 01/13/21 08:00 76 01/13/21 04:47 37.0 C 78 18 128/80 97 01/13/21 02:32 72 26 H 94 Laboratory Results 01/13/21 05:43 01/13/21 05:43 01/10/21 01/12/21 01/12/21 09:59 16:42 19:23 ABG pH Cancelled 7.35 ABG pCO2 Cancelled 79 H ABG pO2 Cancelled 58 L ABG HCO3 Cancelled 43 H ABG O2 Saturation Cancelled 90.7 ABG Base Excess Cancelled 14.0 H VBG pH 7.32 L VBG pCO2 78 H VBG pO2 93 VBG HCO3 39 VBG O2 Saturation 96.4 VBG Base Excess 10.0 01/13/21 09:50 ABG pH ABG pCO2 ABG pO2 ABG HCO3 ABG O2 Saturation ABG Base Excess VBG pH 7.32 L VBG pCO2 90 H VBG pO2 53 VBG HCO3 45 VBG O2 Saturation 86.3 VBG Base Excess 14.9 Diagnostic Findings No further diagnostics PG Care Time/CCT Total # of Minutes Spent Total Time Spent with Patient: Total time spent is greater than 50% in coordination of care (as documented) at patient's floor/unit and/or counseling patient: 35 minutes Coding Level of Care Code 67303 Subseq Hosp Care Lvl 3 Diagnoses Acute on chronic congestive heart failure I50.9 Acute respiratory failure with hypoxia J96.01 Hypertension I10 Obstructive sleep apnea G47.33 Hyperlipidemia E78.5 Hypothyroidism E03.9 Type 2 diabetes mellitus E11.9 Gastroesophageal reflux disease K21.9 Time Spent (min) 35
--- NOTE | 2021-01-13 14:21 | Cardiology Progress Note ---
Date of Service January 13, 2021 Assessment & Plan (1) Acute respiratory failure with hypoxia: (2) Acute on chronic heart failure with preserved ejection fraction (HFpEF): (3) CARLITOS (obstructive sleep apnea): (4) Obesity: Plan: Believe the patient is currently euvolemic. Unfortunately, he remains with CO2 retention requiring BiPAP. Pulmonary is still working with him. From a cardiac standpoint I believe he is stable. Admission and Anticipated Discharge Date Admission Date: January 10, 2021 Subjective The patient is resting comfortably on BiPAP. Review of Systems Review of Systems: Review of Systems: See HPI for pertinent positives. All ot her 10 point review of systems are negative. Physical Exam Physical Exam: General: no acute distress and stated age Head: normocephalic, no masses, lesions, tenderness or abnormalities Eyes: conjunctiva are pink and non-injected, sclera clear Neck: supple, no adenopathy, no bruits, normal jugular venous pulse, no hepatojugular reflux Chest: normal shape and normal respiratory effort Lungs: clear to auscultation and percussion Cardiac Exam: - regular rate & rhythm, no murmurs gallops or rubs - normal S1, normal S2 Pulses: 2(+) throughout Abdomen: abdomen soft, non-tender, no abnormal masses and no hepatosplenomegaly Musculoskeletal: no gait disturbance, no joint inflammation, no deforming arthritis Extremities: no edema and no cyanosis Neuro: grossly normal exam Results & Data ([facility]) Vital Signs (Past 12 Hours) Vital Signs Temp Pulse Pulse Resp BP Pulse Ox 01/13/21 13:03 36.7 C 71 19 120/70 96 01/13/21 11:03 70 23 97 01/13/21 08:18 37 C 85 21 148/82 H 90 01/13/21 08:00 76 01/13/21 04:47 37.0 C 78 18 128/80 97 01/13/21 02:32 72 26 H 94 Laboratory Results Laboratory Results - last 24 hr 01/12/21 01/12/21 01/12/21 16:12 16:27 16:42 WBC RBC Hgb Hct MCV MCH MCHC RDW Std Deviation RDW Coeff of Jay Plt Count MPV Immature Gran % (Auto) Neut % (Auto) Lymph % (Auto) Louisa % (Auto) Eos % (Auto) Baso % (Auto) Neut # (Auto) Lymph # (Auto) Louisa # (Auto) Eos # (Auto) Baso # (Auto) Immature Gran # (Auto) ABG pH Cancelled ABG pCO2 Cancelled ABG pO2 Cancelled ABG HCO3 Cancelled ABG O2 Saturation Cancelled ABG Base Excess Cancelled Ponce Test Cancelled VBG pH VBG pCO2 VBG pO2 VBG HCO3 VBG O2 Saturation VBG Base Excess Barometric Pressure Cancelled Oxygen Given Cancelled Sodium Potassium Chloride Carbon Dioxide Anion Gap BUN Creatinine Est Cr Clr Drug Dosing Est GFR ( Amer) Est GFR (Non-Af Amer) BUN/Creatinine Ratio Glucose POC Glucose 107 H Estimat Average Glucose Hemoglobin A1c Calcium Alpha-1-AT Phenotype Pending TSH IgE Pending AHMET Screen Pending ANCA Pending 01/12/21 01/12/21 01/13/21 19:23 21:07 05:43 WBC RBC Hgb Hct MCV MCH MCHC RDW Std Deviation RDW Coeff of Jay Plt Count MPV Immature Gran % (Auto) Neut % (Auto) Lymph % (Auto) Louisa % (Auto) Eos % (Auto) Baso % (Auto) Neut # (Auto) Lymph # (Auto) Louisa # (Auto) Eos # (Auto) Baso # (Auto) Immature Gran # (Auto) ABG pH 7.35 ABG pCO2 79 H ABG pO2 58 L ABG HCO3 43 H ABG O2 Saturation 90.7 ABG Base Excess 14.0 H Ponce Test Pos VBG pH VBG pCO2 VBG pO2 VBG HCO3 VBG O2 Saturation VBG Base Excess Barometric Pressure 730.6 Oxygen Given FLOW RATE 4 Sodium 136 Potassium 4.6 Chloride 93 L Carbon Dioxide 42 H* Anion Gap 1.0 L BUN 19 H Creatinine 0.92 Est Cr Clr Drug Dosing 132.8 Est GFR ( Amer) 111.2 Est GFR (Non-Af Amer) 96.0 BUN/Creatinine Ratio 20.3 H Glucose 107 H POC Glucose 124 H Estimat Average Glucose Hemoglobin A1c Calcium 9.4 Alpha-1-AT Phenotype TSH IgE AHMET Screen ANCA 01/13/21 01/13/21 01/13/21 05:43 05:43 07:38 WBC 11.09 H RBC 4.94 Hgb 11.3 L Hct 40.7 L MCV 82.4 MCH 22.9 L MCHC 27.8 L RDW Std Deviation 51.8 H RDW Coeff of Jay 17.2 H Plt Count 335 MPV 10.3 Immature Gran % (Auto) 0.2 Neut % (Auto) 74.0 Lymph % (Auto) 14.7 Louisa % (Auto) 7.7 Eos % (Auto) 3.2 Baso % (Auto) 0.2 Neut # (Auto) 8.21 H Lymph # (Auto) 1.63 Louisa # (Auto) 0.85 H Eos # (Auto) 0.36 Baso # (Auto) 0.02 Immature Gran # (Auto) 0.02 ABG pH ABG pCO2 ABG pO2 ABG HCO3 ABG O2 Saturation ABG Base Excess Ponce Test VBG pH VBG pCO2 VBG pO2 VBG HCO3 VBG O2 Saturation VBG Base Excess Barometric Pressure Oxygen Given Sodium Potassium Chloride Carbon Dioxide Anion Gap BUN Creatinine Est Cr Clr Drug Dosing Est GFR ( Amer) Est GFR (Non-Af Amer) BUN/Creatinine Ratio Glucose POC Glucose 101 H Estimat Average Glucose 148 Hemoglobin A1c 6.8 H Calcium Alpha-1-AT Phenotype TSH IgE AHMET Screen ANCA 01/13/21 01/13/21 01/13/21 08:27 09:50 11:40 WBC RBC Hgb Hct MCV MCH MCHC RDW Std Deviation RDW Coeff of Jay Plt Count MPV Immature Gran % (Auto) Neut % (Auto) Lymph % (Auto) Louisa % (Auto) Eos % (Auto) Baso % (Auto) Neut # (Auto) Lymph # (Auto) Louisa # (Auto) Eos # (Auto) Baso # (Auto) Immature Gran # (Auto) ABG pH ABG pCO2 ABG pO2 ABG HCO3 ABG O2 Saturation ABG Base Excess Ponce Test VBG pH 7.32 L VBG pCO2 90 H VBG pO2 53 VBG HCO3 45 VBG O2 Saturation 86.3 VBG Base Excess 14.9 Barometric Pressure 731.7 Oxygen Given Sodium Potassium Chloride Carbon Dioxide Anion Gap BUN Creatinine Est Cr Clr Drug Dosing Est GFR ( Amer) Est GFR (Non-Af Amer) BUN/Creatinine Ratio Glucose POC Glucose 147 H Estimat Average Glucose Hemoglobin A1c Calcium Alpha-1-AT Phenotype TSH 2.070 IgE AHMET Screen ANCA Medications Administered Current Inpatient Medications Acetaminophen (Acetaminophen 325 Mg Tab) 650 mg PO Q4H PRN PRN Reason: Pain or Fever Stop: 02/09/21 17:08 Last Admin: 01/12/21 19:38 Dose: 650 mg Documented by: Atorvastatin Calcium (Atorvastatin 20 Mg Tab) 20 mg PO HS [facility] Stop: 02/09/21 20:59 Last Admin: 01/12/21 22:39 Dose: 20 mg Documented by: Carvedilol (Carvedilol 6.25 Mg Tab) 6.25 mg PO BID [facility] Stop: 02/09/21 20:59 Last Admin: 01/13/21 08:23 Dose: 6.25 mg Documented by: Enoxaparin Sodium (Enoxaparin Inj 40 Mg/0.4 Ml Syr) [facility] [place]: 02/10/21 08:59 Last Admin: 01/13/21 08:24 Dose: 40 mg Documented by: Furosemide (Furosemide 40 Mg Tab) 40 mg PO [id number] [facility] Stop: 02/11/21 16:59 Last Admin: 01/13/21 08:23 Dose: 40 mg Documented by: Hydralazine HCl (Hydralazine Hcl 20 Mg/Ml Vial) 10 mg IV Q4H PRN PRN Reason: sBP > 180 Stop: 02/09/21 22:21 Levothyroxine Sodium (Levothyroxine Sodium 175 Mcg Tablet) 175 mcg PO DAILYBB [facility] Stop: 02/10/21 06:29 Last Admin: 01/13/21 05:57 Dose: 175 mcg Documented by: Lisinopril (Lisinopril 40 Mg Tab) 40 mg PO QAM [facility] Stop: 02/10/21 08:59 Last Admin: 01/13/21 08:23 Dose: 40 mg Documented by: Multivitamins (Multivitamin Tab) 1 [facility] [place] 02/10/21 08:59 Last Admin: 01/13/21 08:24 Dose: 1 tab Documented by: Ondansetron HCl (Ondansetron Inj 2 Mg/Ml 2 Ml Vial) 4 mg IV Q6H PRN PRN Reason: Nausea Stop: 02/09/21 17:08 Pantoprazole Sodium (Pantoprazole 40 Mg Tab) 40 mg PO BID [facility] Stop: 02/09/21 20:59 Last Admin: 01/13/21 08:23 Dose: 40 mg Documented by: Polyethylene Glycol (Polyethylene (Miralax) 17 Gm Pack) 17 gm PO DAILY PRN PRN Reason: Constipation Stop: 02/09/21 17:08 Vitamin D (Cholecalciferol 400 Units 10 Mcg Tab) 400 units PO QAM [facility] Stop: 02/10/21 08:59 Last Admin: 01/13/21 08:23 Dose: 400 units Documented by:
[2021-01-13] MEDS: ACETAMINOPHEN 325 MG TAB PO PRN (19:52)
[2021-01-13] MEDS: ATORVASTATIN 20 MG TAB PO SCH (19:53)
[2021-01-14] MEDS: LEVOTHYROXINE SODIUM 175 MCG TABLET PO SCH (06:00)
[2021-01-14 07:28] LABS: Base Excess VBG 16.4 mEq/L; Oxygen Saturation VBG 63.1 %; pH VBG 7.33 (7.36-7.41)
[2021-01-14 07:53] LABS: BUN Creatinine Ratio 22.9 (10-20); Est GFR (African American) 116.4 ml/min; Est GFR (Non-African American) 100.4 ml/min; Potassium 4.4 mmol/L (3.5-5.1)
[2021-01-14 08:34] LABS: Ferritin 16.1 ng/ml (8-388)
[2021-01-14] MEDS: lisinopril 40 MG TAB PO SCH (09:04)
[2021-01-14] MEDS: MULTIVITAMIN TAB PO SCH (09:04)
[2021-01-14] MEDS: carvediloL 6.25 MG TAB PO SCH ×2 (09:04→21:30)
[2021-01-14] MEDS: FUROSEMIDE 40 MG TAB PO SCH (09:04)
[2021-01-14] MEDS: PANTOprazole 40 MG TAB PO SCH ×2 (09:05→21:31)
[2021-01-14] MEDS: CHOLECALCIFEROL 400 UNITS 10 MCG TAB PO SCH (09:05)
[2021-01-14] MEDS: ENOXAPARIN INJ 40 MG/0.4 ML SYR SQ SCH ×2 (09:05→12:31)
--- NOTE | 2021-01-14 10:41 | Cardiology Progress Note ---
Date of Service January 14, 2021 Assessment & Plan (1) Acute respiratory failure with hypoxia: (2) Acute on chronic heart failure with preserved ejection fraction (HFpEF): (3) CARLITOS (obstructive sleep apnea): (4) Obesity: Plan: Significant weight loss since admission with IV diuresis, now transitioned to oral furosemide 40 mg BID (prior home dose was 20 mg). CO2 trending higher. Will reduce furosemide to 40 mg daily. He was also on spironolactone 12.5 mg daily at home and will resume. Continue BIPAP therapy. Pulm following. Continue all other cardiac meds. Admission and Anticipated Discharge Date Admission Date: January 10, 2021 Supervising Physician Co-Signing Physician Notes Patient seen and examined with Jennifer Driscoll PA-C. Agree with findings and assessment as above. Significant diuresis but still requiring BiPAP. CO2 increasing, may consider metolazone if continues to climb Subjective Patient currently resting in bed, using BIPAP. Review of systems is limited due to wearing BIPAP. He does report his SOB is improving. Denies chest pain. Review of Systems Review of Systems: Other (Limited due to BIPAP in place) Physical Exam Constitutional: WD/WN, vitals as above + obese; no acute distress Neck: + thick neck Respiratory: no respiratory distress (with BIPAP in place) Auscultation: lungs clear to auscultation bilaterally (anteriorly) Cardiovascular: RRR, no murmur, no edema Vessels: no JVD Gastrointestinal (Abdomen): normal bowel sounds, soft, nontender, no hepatosplenomegaly Skin: no rashes, warm and dry Neurologic: PERRL, EOMI, accommodation nl, no face palsy, no dysarthria Psychiatric: A+Ox3, euthymic affect Results & Data ([facility]) Vital Signs (Past 12 Hours) Vital Signs Temp Pulse Pulse Resp BP Pulse Ox 01/14/21 10:03 79 28 H 92 01/14/21 08:04 36.4 C L 80 18 132/68 93 01/14/21 04:34 36.7 C 67 20 134/80 95 01/14/21 03:27 58 L 17 92 Laboratory Results 01/14/21 01/14/21 01/14/21 Range/Units 07:11 07:11 07:07 VBG pH 7.33 L (7.36-7.41) VBG pCO2 90 H (38-50) mmHg VBG pO2 35 mmHg VBG HCO3 46 mmol/L VBG O2 Saturation 63.1 % VBG Base Excess 16.4 mEq/L Barometric Pressure 734.9 mm/Hg Sodium 137 (136-145) mmol/L Potassium 4.4 (3.5-5.1) mmol/L Chloride 94 L (98-107) mmol/L Carbon Dioxide 44 H* (21-32) mmol/L Anion Gap -1.0 L (3-11) BUN 20 H (7-18) mg/dl Creatinine 0.86 (0.6-1.4) mg/dl Est Cr Clr Drug Dosing 142.0 ml/min Est GFR ( Amer) 116.4 ml/min Est GFR (Non-Af Amer) 100.4 ml/min BUN/Creatinine Ratio 22.9 H (10-20) Glucose 104 H (70-99) mg/dl POC Glucose (70-99) mg/dl Calcium 9.0 (8.5-10.1) mg/dl Iron 33 L (35-175) mcg/dl Transferrin 277 (200-360) mg/dl Transferrin % Sat 8 L (20-50) % Ferritin 16.1 (8-388) ng/ml Ammonia 32.7 H (11-32) umol/L 01/13/21 01/13/21 01/13/21 Range/Units 19:56 16:45 11:40 VBG pH (7.36-7.41) VBG pCO2 (38-50) mmHg VBG pO2 mmHg VBG HCO3 mmol/L VBG O2 Saturation % VBG Base Excess mEq/L Barometric Pressure mm/Hg Sodium (136-145) mmol/L Potassium (3.5-5.1) mmol/L Chloride (98-107) mmol/L Carbon Dioxide (21-32) mmol/L Anion Gap (3-11) BUN (7-18) mg/dl Creatinine (0.6-1.4) mg/dl Est Cr Clr Drug Dosing ml/min Est GFR ( Amer) ml/min Est GFR (Non-Af Amer) ml/min BUN/Creatinine Ratio (10-20) Glucose (70-99) mg/dl POC Glucose 125 H 104 H 147 H (70-99) mg/dl Calcium (8.5-10.1) mg/dl Iron (35-175) mcg/dl Transferrin (200-360) mg/dl Transferrin % Sat (20-50) % Ferritin (8-388) ng/ml Ammonia (11-32) umol/L 01/13/21 Range/Units 09:50 VBG pH 7.32 L (7.36-7.41) VBG pCO2 90 H (38-50) mmHg VBG pO2 53 mmHg VBG HCO3 45 mmol/L VBG O2 Saturation 86.3 % VBG Base Excess 14.9 mEq/L Barometric Pressure 731.7 mm/Hg Sodium (136-145) mmol/L Potassium (3.5-5.1) mmol/L Chloride (98-107) mmol/L Carbon Dioxide (21-32) mmol/L Anion Gap (3-11) BUN (7-18) mg/dl Creatinine (0.6-1.4) mg/dl Est Cr Clr Drug Dosing ml/min Est GFR ( Amer) ml/min Est GFR (Non-Af Amer) ml/min BUN/Creatinine Ratio (10-20) Glucose (70-99) mg/dl POC Glucose (70-99) mg/dl Calcium (8.5-10.1) mg/dl Iron (35-175) mcg/dl Transferrin (200-360) mg/dl Transferrin % Sat (20-50) % Ferritin (8-388) ng/ml Ammonia (11-32) umol/L Diagnostic Findings Telemetry reviewed - NSR in the 's. No concerning arrhythmias Medications Administered Current Inpatient Medications Acetaminophen (Acetaminophen 325 Mg Tab) 650 mg PO Q4H PRN PRN Reason: Pain or Fever Stop: 02/09/21 17:08 Last Admin: 01/13/21 19:52 Dose: 650 mg Documented by: Atorvastatin Calcium (Atorvastatin 20 Mg Tab) 20 mg PO HS [facility] Stop: 02/09/21 20:59 Last Admin: 01/13/21 19:53 Dose: 20 mg Documented by: Carvedilol (Carvedilol 6.25 Mg Tab) 6.25 mg PO BID [facility] Stop: 02/09/21 20:59 Last Admin: 01/14/21 09:04 Dose: 6.25 mg Documented by: Enoxaparin Sodium (Enoxaparin Inj 40 Mg/0.4 Ml Syr) [facility] [facility] [place] [facility] [place]: 02/10/21 08:59 Last Admin: 01/13/21 08:24 Dose: 40 mg Documented by: Furosemide (Furosemide 40 Mg Tab) 40 mg PO BID17 [facility] Stop: 02/11/21 16:59 Last Admin: 01/14/21 09:04 Dose: 40 mg Documented by: Hydralazine HCl (Hydralazine Hcl 20 Mg/Ml Vial) 10 mg IV Q4H PRN PRN Reason: sBP > 180 Stop: 02/09/21 22:21 Levothyroxine Sodium (Levothyroxine Sodium 175 Mcg Tablet) 175 mcg PO DAILYBB [facility] Stop: 02/10/21 06:29 Last Admin: 01/14/21 06:00 Dose: 175 mcg Documented by: Lisinopril (Lisinopril 40 Mg Tab) 40 [facility] [place] [facility] [place]: 02/10/21 08:59 Last Admin: 01/14/21 09:04 Dose: 40 mg Documented by: Multivitamins (Multivitamin Tab) 1 tab PO [facility] Stop: 02/10/21 08:59 Last Admin: 01/14/21 09:04 Dose: 1 tab Documented by: Ondansetron HCl (Ondansetron Inj 2 Mg/Ml 2 Ml Vial) 4 mg IV Q6H PRN PRN Reason: Nausea Stop: 02/09/21 17:08 Pantoprazole Sodium (Pantoprazole 40 Mg Tab) 40 mg PO BID [facility] Stop: 02/09/21 20:59 Last Admin: 01/14/21 09:05 Dose: 40 mg Documented by: Polyethylene Glycol (Polyethylene (Miralax) 17 Gm Pack) 17 gm PO DAILY PRN PRN Reason: Constipation Stop: 02/09/21 17:08 Vitamin D (Cholecalciferol 400 Units 10 Mcg Tab) 400 units PO [facility] Stop: 02/10/21 08:59 Last Admin: 01/14/21 09:05 Dose: 400 units Documented by:
[2021-01-14] MEDS: SPIRONOLACTONE 12.5 MG TAB PO SCH (12:31)
[2021-01-14 14:55] LABS: Oxygen Saturation VBG 88.6 %; pH VBG 7.36 (7.36-7.41)
[2021-01-14] MEDS ORDERED: IRON SUCROSE 200 MG in 0.9 % SODIUM CHLORIDE 100 ML IV ONE (16:00)
--- NOTE | 2021-01-14 21:26 | Hospitalist Progress Note ---
Date of Service January 14, 2021 Assessment & Plan (1) Acute on chronic congestive heart failure: Plan: acute/chronic DIASTOLIC CHF - acute component resolved, now euvolemic. appreciate [facility] Cardiollogy recs. cont BB. cont lasix - dose reduced to 40mg/day. cont aldactone. follow contraction alkalosis carefully; if any worsening then hold both diuretics - give diamox. BMP am. cont ELVIN. (2) Acute respiratory failure with hypoxia and hypercapnia: Plan: Likely multifactorial -- acute/chronic diastolic CHF, OHS/CARLITOS, etc. Will need formal 2-step at discharge. Pulmonary arranging for Trilogy machine at discharge given hypercarbia/CARLITOS. Patient has had eosinophilia. AHMET, ANCA, alpha antitrypsin 1, and IgE are pending. COVID-19 and biofire negative. s/p diuresis this admission for #1 with improve pulmonary symptoms. CPAP changed to BIPAP this admission. BIPAP settings increased this am due to persistent resp acidosis with CO2 retention. repeat VBG this afternoon improved with increased settings. repeat VBG again in am. Trilogy at discharge. Will need f/u with Dr Ivey post-d/c in sleep/pulm clinic. (3) Hypertension: Plan: Continue carvedilol 6.25mg PO BID Cont ELVIN Cont aldactone controlled (4) Obstructive sleep apnea: Plan: CPAP 12 cm H2O as an outpatient changed to BIPAP suspect severe CARLITOS is most likely cause of chronic fatigue, headaches, memory fogginess, etc see #2 above (5) Hyperlipidemia: Plan: Continue atorvastatin 20mg PO HS (6) Hypothyroidism: Plan: Continue Levothyroxine 175mcg PO daily TSH wnl this admission (7) Type 2 diabetes mellitus: Plan: HbA1C 6.8% this admission Holding metformin but resume at d/c controlled (8) Gastroesophageal reflux disease: Plan: PPI - severe per cont BID dosing (this is home dose) (9) Iron deficiency: Plan: severe etiology?? h/o esophagitis per will need referral back to Dr Banda for consideration of EGD colonoscopy 06/16 without source of bleed IV venofer 200mg x 1 today if tolerates - then 300mg x 1 tomorrow H/H have been acceptable fortunately (10) DVT prophylaxis: Plan: lovenox daily (11) Morbid obesity with BMI of 45.0-49.9, adult: Plan: BMI 45.9 Plan: updated by phone today as well as yesterday ideally needs Trilogy set up at time of discharge so he has the device upon return home Admission and Anticipated Discharge Date Admission Date: January 10, 2021 Subjective pt was compliant with BIPAP all night although he "doesn't like it" and he is not sleeping well he has also used the BIPAP much of today- taking breaks to eat he does feel more awake/alert during the visit he was adamant that he was "leaving tomorrow - I have to leave; I'm going" we discussed the importance of having Trilogy machine upon departure to treat his CO2 retention/CARLITOS discussed that he has had problems for months and we need to get ahead of these issues we discussed the Fe Deficiency did have colonoscopy in 05/[address] Banda - no source of bleed had EGD "a few years ago" according to - had what sounds like esophagitis Review of Systems Review of Systems: gen - less fatigue; eating fine CV - no orthopnea pulm - requiring O2 during the day; without such his O2 sats are <88% per staff; no cough; no dyspnea today GI - denies BRBPR or melena/tarry stools Physical Exam Physical Exam: gen - NAD, obese, irritable mouth - MMM neck - no JVD heart - RRR, s1 s2 lungs - CTA b/l; no rales, no wheeze abd - soft NT ND BS+ ext - no edema neuro - no asterixis psych - awake, alert, oriented x 3, irritable Results & Data Results & Data ([facility]) Vital Signs (Past 12 Hours) Vital Signs Temp Pulse Pulse Resp BP Pulse Ox 01/14/21 19:23 36.7 C 72 18 143/79 H 95 01/14/21 15:51 36.9 C 65 19 143/83 H 95 01/14/21 15:38 80 01/14/21 13:34 73 26 H 92 01/14/21 11:36 36.5 C 74 20 135/82 92 01/14/21 11:21 73 26 H 92 01/14/21 10:03 79 28 H 92 Laboratory Results Laboratory Results - last 24 hr 01/14/21 01/14/21 01/14/21 07:07 07:11 07:11 VBG pH 7.33 L VBG pCO2 90 H VBG pO2 35 VBG HCO3 46 VBG O2 Saturation 63.1 VBG Base Excess 16.4 Barometric Pressure 734.9 Sodium 137 Potassium 4.4 Chloride 94 L Carbon Dioxide 44 H* Anion Gap -1.0 L BUN 20 H Creatinine 0.86 Est Cr Clr Drug Dosing 142.0 Est GFR ( Amer) 116.4 Est GFR (Non-Af Amer) 100.4 BUN/Creatinine Ratio 22.9 H Glucose 104 H Calcium 9.0 Iron 33 L Transferrin 277 Transferrin % Sat 8 L Ferritin 16.1 Ammonia 32.7 H 01/14/21 14:30 VBG pH 7.36 VBG pCO2 79 H VBG pO2 56 VBG HCO3 44 VBG O2 Saturation 88.6 VBG Base Excess 15.0 Barometric Pressure 733.2 Sodium Potassium Chloride Carbon Dioxide Anion Gap BUN Creatinine Est Cr Clr Drug Dosing Est GFR ( Amer) Est GFR (Non-Af Amer) BUN/Creatinine Ratio Glucose Calcium Iron Transferrin Transferrin % Sat Ferritin Ammonia PG Care Time/CCT Total # of Minutes Spent Total Time Spent with Patient: Total time spent is greater than 50% in coordination of care (as documented) at patient's floor/unit and/or counseling patient: Coding Level of Care Code 77545 Subseq Hosp Care Lvl 3 Diagnoses Acute on chronic congestive heart failure I50.9 Hypertension I10 Obstructive sleep apnea G47.33 Hyperlipidemia E78.5 Hypothyroidism E03.9 Type 2 diabetes mellitus E11.9 Gastroesophageal reflux disease K21.9 Iron deficiency E61.1 Acute respiratory failure with hypoxia and hypercapnia J96.01; J96.02 DVT prophylaxis Z29.9 Morbid obesity with BMI of 45.0-49.9, adult E66.01; Z68.42
[2021-01-14] MEDS: ATORVASTATIN 20 MG TAB PO SCH (21:31)
[2021-01-15] MEDS: LEVOTHYROXINE SODIUM 175 MCG TABLET PO SCH (05:59)
[2021-01-15 07:54] LABS: Base Excess VBG 14.6 mEq/L; Oxygen Saturation VBG 81.8 %; pH VBG 7.37 (7.36-7.41)
[2021-01-15 08:23] LABS: BUN Creatinine Ratio 20.3 (10-20); Calcium 9.7 mg/dl (8.5-10.1); Creatinine Clr Calc Pharmacy 154.9 ml/min; Est GFR (African American) 119.9 ml/min; Est GFR (Non-African American) 103.4 ml/min; Potassium 4.5 mmol/L (3.5-5.1)
[2021-01-15] MEDS: lisinopril 40 MG TAB PO SCH (08:45)
[2021-01-15] MEDS: SPIRONOLACTONE 12.5 MG TAB PO SCH (08:45)
[2021-01-15] MEDS: CHOLECALCIFEROL 400 UNITS 10 MCG TAB PO SCH (08:45)
[2021-01-15] MEDS: MULTIVITAMIN TAB PO SCH (08:45)
[2021-01-15] MEDS: carvediloL 6.25 MG TAB PO SCH ×2 (08:45→20:45)
[2021-01-15] MEDS: FUROSEMIDE 40 MG TAB PO SCH (08:45)
[2021-01-15] MEDS: PANTOprazole 40 MG TAB PO SCH ×2 (08:45→20:45)
[2021-01-15] MEDS: ENOXAPARIN INJ 40 MG/0.4 ML SYR SQ SCH (08:46)
--- NOTE | 2021-01-15 09:32 | Cardiology Progress Note ---
Date of Service January 15, 2021 Assessment & Plan (1) Acute on chronic heart failure with preserved ejection fraction (HFpEF): (2) CARLITOS (obstructive sleep apnea): (3) Obesity: Plan: Significant weight loss since admission with IV diuresis, now transitioned to oral furosemide 40 mg and spironolactone. Serum CO2 improving today. Continue BIPAP therapy. Pulm following. Continue all other cardiac meds. We discussed need for compliance with BIPAP at home. Should also have sleep med f/u to monitor settings. We also discussed importance for weight loss and dietary changes. Consider 2 Step prior to discharge. Case discussed with Dr. Pisano. Admission and Anticipated Discharge Date Admission Date: January 10, 2021 Supervising Physician Co-Signing Physician Notes Patient seen and examined with Jennifer Driscoll PA-C. Agree with findings and assessment as above. Significant diuresis since admission now on oral diuretics. Our pulmonary colleagues have arranged for home BiPAP therapy and compliance reviewed with patient. Subjective Patient more awake/alert this morning. Out of bed, using oxygen via NC not currently on BIPAP. Denies acute complaints. Reports he needs to be discharged today. He denies chest pain. Reports improved SOB since admission. Significant weight loss reported since admission. Interval improvement in volume status. He denies acute complaints Review of Systems Review of Systems: All systems reviewed & are unremarkable except as noted in HPI & below Physical Exam Constitutional: WD/WN, vitals as above + obese; no acute distress Neck: + thick neck Respiratory: no respiratory distress Auscultation: lungs clear to auscultation bilaterally Cardiovascular: RRR, no murmur, no edema Vessels: no JVD Gastrointestinal (Abdomen): normal bowel sounds, soft, nontender, no hepatosplenomegaly Skin: no rashes, warm and dry Neurologic: PERRL, EOMI, accommodation nl, no face palsy, no dysarthria Psychiatric: A+Ox3, euthymic affect Results & Data ([facility]) Vital Signs (Past 12 Hours) Vital Signs Temp Pulse Pulse Resp BP Pulse Ox 01/15/21 07:59 37.4 C 67 18 133/82 94 01/15/21 03:24 36.6 C 65 20 134/79 96 01/15/21 02:35 61 31 H 93 01/15/21 00:09 69 01/14/21 23:35 36.6 C 72 20 133/77 96 01/14/21 22:08 69 21 98 Laboratory Results 01/15/21 01/15/21 01/14/21 Range/Units 07:43 07:43 14:30 VBG pH 7.37 7.36 (7.36-7.41) VBG pCO2 78 H 79 H (38-50) mmHg VBG pO2 48 56 mmHg VBG HCO3 44 44 mmol/L VBG O2 Saturation 81.8 88.6 % VBG Base Excess 14.6 15.0 mEq/L Barometric Pressure 735.4 733.2 mm/Hg Sodium 135 L (136-145) mmol/L Potassium 4.5 (3.5-5.1) mmol/L Chloride 94 L (98-107) mmol/L Carbon Dioxide 40 H (21-32) mmol/L Anion Gap 2.0 L (3-11) BUN 16 (7-18) mg/dl Creatinine 0.80 (0.6-1.4) mg/dl Est Cr Clr Drug Dosing 154.9 ml/min Est GFR ( Amer) 119.9 ml/min Est GFR (Non-Af Amer) 103.4 ml/min BUN/Creatinine Ratio 20.3 H (10-20) Glucose 101 H (70-99) mg/dl Calcium 9.7 (8.5-10.1) mg/dl Diagnostic Findings Telemetry reviewed - NSR in the 70's. Echo report reviewed dated 01/11/2021: study was technically limited. Grossly normal valvular structure and function. LV is normal in size. EF 60-65% RV is mild to moderately dilated RV systolic function is mild to moderately reduced. LA size is normal. RA is mildly dilated. Medications Administered Current Inpatient Medications Acetaminophen (Acetaminophen 325 Mg Tab) 650 mg PO Q4H PRN PRN Reason: Pain or Fever Stop: 02/09/21 17:08 Last Admin: 01/13/21 19:52 Dose: 650 mg Documented by: Atorvastatin Calcium (Atorvastatin 20 Mg Tab) 20 mg PO HS ANDRE Stop: 02/09/21 20:59 Last Admin: 01/14/21 21:31 Dose: 20 mg Documented by: Carvedilol (Carvedilol 6.25 Mg Tab) 6.25 mg PO BID ANDRE Stop: 02/09/21 20:59 Last Admin: 01/15/21 08:45 Dose: 6.25 mg Documented by: Enoxaparin Sodium (Enoxaparin Inj 40 Mg/0.4 Ml Syr) 40 mg SQ QAM [facility] Stop: 02/10/21 08:59 Last Admin: 01/15/21 08:46 Dose: 40 mg Documented by: Furosemide (Furosemide 40 Mg Tab) 40 mg PO QAM [facility] Stop: 02/14/21 08:59 Last Admin: 01/15/21 08:45 Dose: 40 mg Documented by: Hydralazine HCl (Hydralazine Hcl 20 Mg/Ml Vial) 10 mg IV Q4H PRN PRN Reason: sBP > 180 Stop: 02/09/21 22:21 Iron Sucrose 300 mg/ Sodium (Chloride) 265 mls @ 176.667 mls/hr IV ONE ONE Stop: 01/15/21 11:14 Levothyroxine Sodium (Levothyroxine Sodium 175 Mcg Tablet) 175 mcg PO DAILYBB [facility] Stop: 02/10/21 06:29 Last Admin: 01/15/21 05:59 Dose: 175 mcg Documented by: Lisinopril (Lisinopril 40 Mg Tab) 40 mg PO QAM [facility] Stop: 02/10/21 08:59 Last Admin: 01/15/21 08:45 Dose: 40 mg Documented by: Multivitamins ([facility]ivitamin Tab) [facility] [place] [place] Stop: 02/10/21 08:59 Last Admin: 01/15/21 08:45 Dose: 1 tab Documented by: Ondansetron HCl (Ondansetron Inj 2 Mg/Ml 2 Ml Vial) 4 mg IV Q6H PRN PRN Reason: Nausea Stop: 02/09/21 17:08 Pantoprazole Sodium (Pantoprazole 40 Mg Tab) 40 mg PO BID [facility] Stop: 02/09/21 20:59 Last Admin: 01/15/21 08:45 Dose: 40 mg Documented by: Polyethylene Glycol (Polyethylene (Miralax) 17 Gm Pack) 17 gm PO DAILY PRN PRN Reason: Constipation Stop: 02/09/21 17:08 Spironolactone (Spironolactone 12.5 Mg Tab) 12.5 mg PO DAILY [facility] Stop: 02/13/21 10:59 Last Admin: 01/15/21 08:45 Dose: 12.5 mg Documented by: Vitamin D (Cholecalciferol 400 Units 10 Mcg Tab) [facility] [place] [place] Stop: 02/10/21 08:59 Last Admin: 01/15/21 08:45 Dose: 400 units Documented by:
[2021-01-15] MEDS ORDERED: IRON SUCROSE 300 MG in SODIUM CHLORIDE 0.9% 250 ML IV ONE (09:45)
--- NOTE | 2021-01-15 10:16 | Hospitalist Progress Note ---
Date of Service January 15, 2021 Assessment & Plan (1) Acute on chronic congestive heart failure: Plan: acute/chronic DIASTOLIC CHF - acute component resolved, now euvolemic. [facility] BB. cont lasix - dose reduced to 40mg/day. cont aldactone. follow contraction alkalosis carefully; if any worsening then hold both diur etics - give diamox. BMP am. cont ELVIN. (2) Acute respiratory failure with hypoxia and hypercapnia: Plan: Likely multifactorial -- acute/chronic diastolic CHF, OHS/CARLITOS, etc. Will need formal 2-step at discharge. Arranging for AVAPS-AE machine at discharge given hypercarbia/CARLITOS. Patient has had eosinophilia. AHMET, ANCA, alpha antitrypsin 1, and IgE are pending. COVID-19 and biofire negative. s/p diuresis this admission for #1 with improve pulmonary symptoms. CPAP changed to BIPAP this admission. BIPAP settings increased due to persistent resp acidosis with CO2 retention. repeat VBG this afternoon improved with increased settings. repeat VBG this morning (01/15/2021) had persistent elevation of vCO2 of 78 mmHg Current BiPAP settings are 18/8 with a rate of 12 and an FiO2 of 50%. Patient will need a 6-minute walk test (two-step) prior to discharge Due to chronic respiratory failure, patient now requires a noninvasive home ventilator. Bilevel therapy with and without a rate would has shown to be ineffective as patient requires a volume targeted mode. Ventilation is required to decrease work of breathing and improve pulmonary status. Interruption of ventilator support would lead to decline of health status and possibly . NIMV settings should be AVAPS-AE; Breath rate: auto; Inspiratory time:auto; Sigh: off; PS min: 8; PS max 22; EPAP min: 8; EPAP max: 15; AVAPS rate: 1 During sleep and as needed Patient is current height is 5 foot 9 inches (69 inches). His current weight is 144.6 kg. His deal body weight is 71 kg. Targeted tidal volume should be 560 mL (6 to 8 mL/kg). Patient follows with Dr. Ivey as an outpatient. Would recommend outpatient follow-up with pulmonary function tests as well as repeat polysomnography with titration studies. Will defer further work-up to Dr. Ivey. (3) Hypertension: Plan: Continue carvedilol 6.25mg PO BID Cont ELVIN Cont aldactone controlled (4) Obstructive sleep apnea: Plan: CPAP 12 cm H2O as an outpatient changed to BIPAP while inpatient suspect severe CARLITOS is most likely cause of chronic fatigue, headaches, memory fogginess, etc Concerned with patient's chronic hypercapnic state and elevated PCO2 Defer to Dr. Ivey for return to work recommendations for Mr. Cadena (5) Hyperlipidemia: Plan: Continue atorvastatin 20mg PO HS (6) Hypothyroidism: Plan: Continue Levothyroxine 175mcg PO daily TSH wnl this admission (7) Type 2 diabetes mellitus: Plan: HbA1C 6.8% this admission Holding metformin but resume at d/c controlled (8) Gastroesophageal reflux disease: Plan: PPI - severe per cont BID dosing (this is home dose) (9) Iron deficiency: Plan: severe etiology?? h/o esophagitis per will need referral back to Dr Banda for consideration of EGD colonoscopy 06/16 without source of bleed IV venofer 200mg x 1 01/14/2021 Venofer IV 300mg x 1 01/15/2021 H/H have been acceptable fortunately (10) DVT prophylaxis: Plan: lovenox daily (11) Morbid obesity with BMI of 45.0-49.9, adult: Plan: BMI 45.9 Discussed need of weight loss with patient today. was present. Hopefully AVAPS (average volume assured pressure support) will help the patient have less fatigue Plan: Hopeful for discharge in the next day or 2. Long discussion with patient and his in the room today regarding his hypercapnic state and hypoxia. Ideally needs AVAPS/NIV set up at time of discharge so he has the device upon return home Admission and Anticipated Discharge Date Admission Date: January 10, 2021 Supervising Physician Co-Signing Physician Notes Attending Attestation - Pt seen/examined, chart reviewed, care plan d/w Mati CARRION. I agree w/ the barnes components of his documentation w/ the following addition - acute/chronic right-sided congestive heart failure in addition to acute/chronic diastolic CHF Pt on BIPAP during the visit. Voices no complaints. Wants to go home. Tolerating Fe infusions. He knows we are waiting on insurance approval for Trilogy. VSS, afebrile gen - NAD, obese neck - no obvious JVD heart - RRR, s1 s2 lungs - CTA b/l, decreased expiratory phase, no rales abd - soft NT ext - no edema psych - a/o x 3 A/P: 1. acute resp failure with hypoxia & hypercarbia - as above awaiting Trilogy approval 2. suspected COPD - nilson pending 3. FeDef anemia - give additional Venofer today and then again tomorrow; outpatient f/u with GI for EGD 4. acute/chronic CHF (right-sided & diastolic) - compensated 2-step before d/c hopefully d/c soon Yuri Pedraza MD Subjective Attending: Dr. Pedraza Patient seen and examined at bedside. Continues to have elevated PCO2. Seems to tolerate BiPAP. Would benefit from AVAPS-AE (average volume assured pressure support) as an outpatient. Patient is seen at bedside with his present. He continues to have some shortness of breath and requires supplemental oxygen at 4-6 L/min. He has persistent cough with yellow sputum. He denies any fever or chills. No rigors. He had a bowel movement last evening and again this morning. They are mostly formed. He has no other acute complaints. He is questioning his discharge plan. Review of Systems Review of Systems: All systems reviewed & are unremarkable except as noted in Subjective Physical Exam Physical Exam: GENERAL : No acute distress EYES: No icterus, gaze conjugate NOSE: No evidence of epistaxis MOUTH: No lesions or candidiasis NECK: Supple LUNGS: Poor inspirational quality. CTA B/L, no wheezes, rales or rhonchi HEART: Regular, rate controlled ABDOMEN: Soft, NT, ND, BS Present EXTREMITIES: No LE edema, pedal pulses intact NEURO: A&OX3 Results & Data Results & Data ([facility]) Vital Signs (Past 12 Hours) Vital Signs Temp Pulse Pulse Resp BP Pulse Ox 01/15/21 08:00 64 01/15/21 07:59 37.4 C 67 18 133/82 94 01/15/21 03:24 36.6 C 65 20 134/79 96 01/15/21 02:35 61 31 H 93 01/15/21 00:09 69 01/14/21 23:35 36.6 C 72 20 133/77 96 Laboratory Results 01/13/21 05:43 01/15/21 07:43 01/10/21 01/12/21 01/12/21 09:59 16:42 19:23 ABG pH Cancelled 7.35 ABG pCO2 Cancelled 79 H ABG pO2 Cancelled 58 L ABG HCO3 Cancelled 43 H ABG O2 Saturation Cancelled 90.7 ABG Base Excess Cancelled 14.0 H VBG pH 7.32 L VBG pCO2 78 H VBG pO2 93 VBG HCO3 39 VBG O2 Saturation 96.4 VBG Base Excess 10.0 01/13/21 01/14/21 01/14/21 09:50 07:11 14:30 ABG pH ABG pCO2 ABG pO2 ABG HCO3 ABG O2 Saturation ABG Base Excess VBG pH 7.32 L 7.33 L 7.36 VBG pCO2 90 H 90 H 79 H VBG pO2 53 35 56 VBG HCO3 45 46 44 VBG O2 Saturation 86.3 63.1 88.6 VBG Base Excess 14.9 16.4 15.0 01/15/21 07:43 ABG pH ABG pCO2 ABG pO2 ABG HCO3 ABG O2 Saturation ABG Base Excess VBG pH 7.37 VBG pCO2 78 H VBG pO2 48 VBG HCO3 44 VBG O2 Saturation 81.8 VBG Base Excess 14.6 PG Care Time/CCT Total # of Minutes Spent Total Time Spent with Patient: Total time spent is greater than 50% in coordination of care (as documented) at patient's floor/unit and/or counseling patient: 35 minutes including discussion with patient and in his room Coding Level of Care Code 95871 Subseq Hosp Care Lvl 3 Diagnoses Acute on chronic congestive heart failure I50.9 Acute respiratory failure with hypoxia and hypercapnia J96.01; J96.02 Hypertension I10 Obstructive sleep apnea G47.33 Hyperlipidemia E78.5 Hypothyroidism E03.9 Type 2 diabetes mellitus E11.9 Gastroesophageal reflux disease K21.9 Iron deficiency E61.1 DVT prophylaxis Z29.9 Morbid obesity with BMI of 45.0-49.9, adult E66.01; Z68.42 Time Spent (min) 35
[2021-01-15] MEDS: ATORVASTATIN 20 MG TAB PO SCH (20:45)
[2021-01-16] MEDS: LEVOTHYROXINE SODIUM 175 MCG TABLET PO SCH (06:28)
[2021-01-16] MEDS: PANTOprazole 40 MG TAB PO SCH (08:05)
[2021-01-16] MEDS: MULTIVITAMIN TAB PO SCH (08:05)
[2021-01-16] MEDS: lisinopril 40 MG TAB PO SCH (08:05)
[2021-01-16] MEDS: SPIRONOLACTONE 12.5 MG TAB PO SCH (08:05)
[2021-01-16] MEDS: ENOXAPARIN INJ 40 MG/0.4 ML SYR SQ SCH (08:06)
[2021-01-16] MEDS: FUROSEMIDE 40 MG TAB PO SCH (08:06)
[2021-01-16] MEDS: CHOLECALCIFEROL 400 UNITS 10 MCG TAB PO SCH (08:06)
[2021-01-16] MEDS: carvediloL 6.25 MG TAB PO SCH (08:07)
--- NOTE | 2021-01-16 08:25 | Procedure Note ---
Procedure Note Date of Service January 16, 2021 Note Bedside Spirometry Interpretation: The patient underwent bedside spirometry to evaluate for possible underlying lung disease. FVC: 1.53L 32% predicted FEV1 1.01L 27% predicted Ratio: 66 Impression: Probable mixed obstructive and restrictive processes. Recommend assessment with full PFTs including lung volumes and DLCO and administration of bronchodilators. José Gilbert MD [facility] Pulmonary, CC, Sleep Medicine Coding CPT Codes Pulmonary/Thoracic - Pulmonary and Thoracic: 28508 Evaluation of wheezing ([id number]) [facility] [place] Procedure Codes (Charges) Pulmonary/Thoracic Procedure 1: Pulmonary and Thoracic: 24640 Evaluation of wheezing
[2021-01-16] MEDS ORDERED: metFORMIN HCL ER 500 MG TABCR PO SCH (09:40)
[2021-01-16] MEDS ORDERED: IRON SUCROSE 300 MG in SODIUM CHLORIDE 0.9% 250 ML IV ONE (10:00)
[2021-01-16 10:05] LABS: BUN Creatinine Ratio 21.3 (10-20); Calcium 9.3 mg/dl (8.5-10.1); Creatinine Clr Calc Pharmacy 143.8 ml/min; Est GFR (African American) 116.9 ml/min; Est GFR (Non-African American) 100.9 ml/min; Potassium 4.1 mmol/L (3.5-5.1)
--- NOTE | 2021-01-16 10:16 | Cardiology Progress Note ---
Date of Service January 16, 2021 Assessment & Plan (1) Acute on chronic heart failure with preserved ejection fraction (HFpEF): (2) CARLITOS (obstructive sleep apnea): (3) Obesity: Plan: Significant weight loss since admission with IV diuresis, now transitioned to oral furosemide 40 mg and spironolactone. Serum CO2 had trended down yesterday. Labs pending from today. Furosemide had been reduced due to concerns for contraction alkalosis. Continue BIPAP therapy. Pulm following. Home Vent being ordered Continue all other cardiac meds. We discussed need for compliance with BIPAP at home. Should also have sleep med f/u to monitor settings. We also discussed importance for weight loss and dietary changes. Will likely need oxygen therapy upon discharge arranged as well. Case discussed with Dr. Pisano. Admission and Anticipated Discharge Date Admission Date: January 10, 2021 Supervising Physician Co-Signing Physician Notes Patient seen and examined with Jennifer Driscoll PA-C. Agree with findings and assessment as above. Significant diuresis since admission now on oral diuretics. Our pulmonary colleagues have arranged for home BiPAP therapy and compliance reviewed with patient. Subjective Patient OOB, resting in chair. Still requiring 5L NC to maintain oxygen saturations. He denies acute complaints. Understands he needs to stay in hospital until home vent is provided. Review of Systems Review of Systems: Physical Exam Constitutional: WD/WN, vitals as above + obese; no acute distress Neck: + thick neck Respiratory: no respiratory distress Auscultation: lungs clear to auscu ltation bilaterally Cardiovascular: RRR, no murmur, no edema Vessels: no JVD Gastrointestinal (Abdomen): normal bowel sounds, soft, nontender, no hepatosplenomegaly Skin: no rashes, warm and dry Neurologic: PERRL, EOMI, accommodation nl, no face palsy, no dysarthria Psychiatric: A+Ox3, euthymic affect Results & Data ([facility]) Vital Signs (Past 12 Hours) Vital Signs Temp Pulse Pulse Resp BP Pulse Ox 01/16/21 08:16 36.8 C 74 20 134/82 96 01/16/21 03:30 93 H 22 93 01/16/21 03:10 36.6 C 71 22 143/74 H 94 01/15/21 23:29 36.6 C 67 22 110/69 94 01/15/21 23:13 62 01/15/21 22:20 68 22 95 Laboratory Results 01/16/21 01/16/21 01/15/21 Range/Units 09:07 07:28 20:14 Sodium 137 (136-145) mmol/L Potassium 4.1 (3.5-5.1) mmol/L Chloride 95 L (98-107) mmol/L Carbon Dioxide 38 H (21-32) mmol/L Anion Gap 4.0 (3-11) BUN 18 (7-18) mg/dl Creatinine 0.85 (0.6-1.4) mg/dl Est Cr Clr Drug Dosing 143.8 ml/min Est GFR ( Amer) 116.9 ml/min Est GFR (Non-Af Amer) 100.9 ml/min BUN/Creatinine Ratio 21.3 H (10-20) Glucose 179 H (70-99) mg/dl POC Glucose 97 107 H (70-99) mg/dl Calcium 9.3 (8.5-10.1) mg/dl 01/15/21 Range/Units 16:12 Sodium (136-145) mmol/L Potassium (3.5-5.1) mmol/L Chloride (98-107) mmol/L Carbon Dioxide (21-32) mmol/L Anion Gap (3-11) BUN (7-18) mg/dl Creatinine (0.6-1.4) mg/dl Est Cr Clr Drug Dosing ml/min Est GFR ( Amer) ml/min Est GFR (Non-Af Amer) ml/min BUN/Creatinine Ratio (10-20) Glucose (70-99) mg/dl POC Glucose 85 (70-99) mg/dl Calcium (8.5-10.1) mg/dl Diagnostic Findings Telemetry reviewed - NSR, no concerning arrhythmias Medications Administered Current Inpatient Medications Acetaminophen (Acetaminophen 325 Mg Tab) 650 mg PO Q4H PRN PRN Reason: Pain or Fever Stop: 02/09/21 17:08 Last Admin: 01/13/21 19:52 Dose: 650 mg Documented by: Atorvastatin Calcium (Atorvastatin 20 Mg Tab) 20 mg PO HS ANDRE Stop: 02/09/21 20:59 Last Admin: 01/15/21 20:45 Dose: 20 mg Documented by: Carvedilol (Carvedilol 6.25 Mg Tab) 6.25 mg PO BID ANDRE Stop: 02/09/21 20:59 Last Admin: 01/16/21 08:07 Dose: 6.25 mg Documented by: Enoxaparin Sodium (Enoxaparin Inj 40 Mg/0.4 Ml Syr) 40 mg SQ QAM [facility] Stop: 02/10/21 08:59 Last Admin: 01/16/21 08:06 Dose: 40 mg Documented by: Furosemide (Furosemide 40 Mg Tab) 40 mg PO QAM [facility] Stop: 02/14/21 08:59 Last Admin: 01/16/21 08:06 Dose: 40 mg Documented by: Hydralazine HCl (Hydralazine Hcl 20 Mg/Ml Vial) 10 mg IV Q4H PRN PRN Reason: sBP > 180 Stop: 02/09/21 22:21 Iron Sucrose 300 mg/ Sodium (Chloride) 265 mls @ 176.667 mls/hr IV TODAY@1000 ONE Stop: 01/16/21 11:29 Last Admin: 01/16/21 10:05 Dose: 176.7 mls/hr Documented by: Levothyroxine Sodium (Levothyroxine Sodium 175 Mcg Tablet) 175 mcg PO DAILYBB [facility] Stop: 02/10/21 06:29 Last Admin: 01/16/21 06:28 Dose: 175 mcg Documented by: Lisinopril (Lisinopril 40 Mg Tab) 40 mg PO [facility] Stop: 02/10/21 08:59 Last Admin: 01/16/21 08:05 Dose: 40 mg Documented by: Metformin HCl (Metformin Hcl Er 500 Mg Tabcr) 500 mg PO BIDM [facility] Stop: 02/15/21 09:39 Multivitamins (Multivitamin Tab) 1 tab PO [facility] Stop: 02/10/21 08:59 Last Admin: 01/16/21 08:05 Dose: 1 tab Documented by: Ondansetron HCl (Ondansetron Inj 2 Mg/Ml 2 Ml Vial) 4 mg IV Q6H PRN PRN Reason: Nausea Stop: 02/09/21 17:08 Pantoprazole Sodium (Pantoprazole 40 Mg Tab) 40 mg PO BID [facility] Stop: 02/09/21 20:59 Last Admin: 01/16/21 08:05 Dose: 40 mg Documented by: Polyethylene Glycol (Polyethylene (Miralax) 17 Gm Pack) 17 gm PO DAILY PRN PRN Reason: Constipation Stop: 02/09/21 17:08 Spironolactone (Spironolactone 12.5 Mg Tab) 12.5 mg PO DAILY [facility] Stop: 02/13/21 10:59 Last Admin: 01/16/21 08:05 Dose: 12.5 mg Documented by: Vitamin D (Cholecalciferol 400 Units 10 Mcg Tab) 400 units PO QAM [facility] Stop: 02/10/21 08:59 Last Admin: 01/16/21 08:06 Dose: 400 units Documented by:
--- NOTE | 2021-01-16 10:24 | Hospitalist Progress Note ---
Date of Service January 16, 2021 Assessment & Plan (1) Acute on chronic congestive heart failure: Plan: acute/chronic DIASTOLIC CHF - acute component resolved, now euvolemic. [facility]. cont BB. cont lasix - dose reduced to 40mg/day (home dose of furosemide was 20 mg p.o. daily) cont aldactone. follow contraction alkalosis carefully; if any worsening then hold both diuretics - give diamox. BMP am. cont ELVIN. (2) Acute respiratory failure with hypoxia and hypercapnia: Plan: Chronic respiratory failure. PFTs done at bedside shows COPD. [id number] smoking history -patient quit smoking 12 years ago 2-step ordered to determine oxygen requirements for discharge. Arranging for AVAPS-AE machine at discharge given COPD and hypercarbia/CARLITOS. Patient has had eosinophilia. AHMET, ANCA, alpha antitrypsin 1, and IgE are pending. This should be followed up outpatient on discharge COVID-19 and biofire negative. s/p diuresis this admission for #1 with improve pulmonary symptoms. CPAP changed to BIPAP this admission. BIPAP settings increased due to persistent resp acidosis with CO2 retention. repeat VBG this afternoon improved with increased settings. repeat VBG this morning (01/15/2021) had persistent elevation of vCO2 of 78 mmHg Current BiPAP settings are 18/8 with a rate of 12 and an FiO2 of 50%. Due to chronic respiratory failure consequent to COPD, patient now requires a noninvasive home ventilator. Bilevel therapy with and without a rate would has shown to be ineffective as patient requires a volume targeted mode. Ventilation is required to decrease work of breathing and improve pulmonary status. Interruption of ventilator support would lead to decline of health status and possibly . NIMV settings should be AVAPS-AE; Breath rate: auto; Inspiratory time:auto; Sigh: off; PS min: 8; PS max 22; EPAP min: 8; EPAP max: 15; AVAPS rate: 1 During sleep and as needed Patient is current height is 5 foot 9 inches (69 inches). His current weight is 144.6 kg. His deal body weight is 71 kg. Targeted tidal volume should be 560 mL (6 to 8 mL/kg). Patient follows with Dr. Ivey as an outpatient. Would recommend outpatient follow-up with pulmonary function tests as well as repeat polysomnography with titration studies. Will defer further work-up to Dr. Ivey. (3) COPD (chronic obstructive pulmonary disease): Plan: [id number] smoking history. Patient quit smoking 12 years ago Patient is morbidly obese with a BMI of 46.0 kg/m Pulmonary function testing 01/15/2021 reveals severe obstructive disease with mixed restrictive disease Patient will require AVAPSAE ventilation as listed above Patient will need full PFTs as an outpatient including lung volumes and DLCO. This should be conducted pre and post bronchodilators Will empirically start patient on Trelegy (ICS, AC, LABA) until able to be seen by Dr. Ivey with respiratory (4) Hypertension: Plan: Continue carvedilol 6.25mg PO BID Cont ELVIN Cont aldactone Patient is also on furosemide 40 mg p.o. daily during this hospital stay. It should be noted that the patient's home dose of furosemide is 20 mg p.o. daily. controlled (5) Obstructive sleep apnea: Plan: CPAP 12 cm H2O as an outpatient changed to BIPAP while inpatient suspect severe CARLITOS is most likely cause of chronic fatigue, headaches, memory fogginess, etc Concerned with patient's chronic hypercapnic state and elevated PCO2 Will discharge patient with AVAPS-AE noninvasive ventilator with settings as listed above Defer to Dr. Ivey for return to work recommendations for Mr. Cadena (6) Hyperlipidemia: Plan: Continue atorvastatin 20mg PO HS (7) Hypothyroidism: Plan: Continue Levothyroxine 175mcg PO daily TSH wnl this admission (8) Type 2 diabetes mellitus: Plan: HbA1C 6.8% this admission Holding metformin but resume at d/c controlled (9) Gastroesophageal reflux disease: Plan: Continue PPI GERD is severe per cont BID dosing (this is home dose) (10) Iron deficiency: Plan: severe etiology?? h/o esophagitis per will need referral back to Dr Banda for consideration of EGD colonoscopy 06/16 without source of bleed IV venofer 200mg x 1 01/14/2021 Venofer IV 300mg x 1 01/15/2021 Venofer IV 300 mg x 1 01/16/21 H/H have been acceptable fortunately (11) DVT prophylaxis: Plan: lovenox daily (12) Morbid obesity with BMI of 45.0-49.9, adult: Plan: BMI 45.9 Discussed need of weight loss with patient today. was present. Hopefully AVAPS-AE (average volume assured pressure support) will help the patient have less fatigue Plan: Needs AVAPS-AE/NIV set up at time of discharge so he has the device upon return home Admission and Anticipated Discharge Date Admission Date: January 10, 2021 Subjective Attending: Dr. Pedraza Patient seen and examined at bedside. He is in bedside chair. He is much more alert since starting on higher BiPAP settings. Spirometry was done at bedside last night and shows COPD with a mixed restrictive pattern. Patient states that his breathing seems to be stable. He has no acute shortness of breath. He has no cough. He denies fever, sweats, rigors. He has no acute complaints. Review of Systems Review of Systems: All systems reviewed & are unremarkable except as noted in Subjective Physical Exam Physical Exam: GENERAL : No acute distress EYES: No icterus, gaze conjugate NOSE: No evidence of epistaxis MOUTH: No lesions or candidiasis NECK: Supple LUNGS: CTA B/L, no wheezes, rales or rhonchi HEART: Regular, rate controlled ABDOMEN: Soft, NT, ND, BS Present EXTREMITIES: Trace bilateral LE edema, pedal pulses intact and equal bilaterally NEURO: A&OX3. Sensorium is back to baseline Results & Data Results & Data ([facility]) Vital Signs (Past 12 Hours) Vital Signs Temp Pulse Pulse Resp BP Pulse Ox 01/16/21 08:16 36.8 C 74 20 134/82 96 01/16/21 03:30 93 H 22 93 01/16/21 03:10 36.6 C 71 22 143/74 H 94 01/15/21 23:29 36.6 C 67 22 110/69 94 01/15/21 23:13 62 01/15/21 22:20 68 22 95 Laboratory Results 01/13/21 05:43 01/16/21 09:07 01/10/21 01/12/21 01/12/21 09:59 16:42 19:23 ABG pH Cancelled 7.35 ABG pCO2 Cancelled 79 H ABG pO2 Cancelled 58 L ABG HCO3 Cancelled 43 H ABG O2 Saturation Cancelled 90.7 ABG Base Excess Cancelled 14.0 H VBG pH 7.32 L VBG pCO2 78 H VBG pO2 93 VBG HCO3 39 VBG O2 Saturation 96.4 VBG Base Excess 10.0 01/13/21 01/14/21 01/14/21 09:50 07:11 14:30 ABG pH ABG pCO2 ABG pO2 ABG HCO3 ABG O2 Saturation ABG Base Excess VBG pH 7.32 L 7.33 L 7.36 VBG pCO2 90 H 90 H 79 H VBG pO2 53 35 56 VBG HCO3 45 46 44 VBG O2 Saturation 86.3 63.1 88.6 VBG Base Excess 14.9 16.4 15.0 01/15/21 07:43 ABG pH ABG pCO2 ABG pO2 ABG HCO3 ABG O2 Saturation ABG Base Excess VBG pH 7.37 VBG pCO2 78 H VBG pO2 48 VBG HCO3 44 VBG O2 Saturation 81.8 VBG Base Excess 14.6 Diagnostic Findings No further diagnostic imaging PG Care Time/CCT Total # of Minutes Spent Total Time Spent with Patient: Total time spent is greater than 50% in coordination of care (as documented) at patient's floor/unit and/or counseling patient: Coding Diagnoses Acute on chronic congestive heart failure I50.9 Acute respiratory failure with hypoxia and hypercapnia J96.01; J96.02 Hypertension I10 Obstructive sleep apnea G47.33 Hyperlipidemia E78.5 Hypothyroidism E03.9 Type 2 diabetes mellitus E11.9 Gastroesophageal reflux disease K21.9 Iron deficiency E61.1 DVT prophylaxis Z29.9 Morbid obesity with BMI of 45.0-49.9, adult E66.01; Z68.42 COPD (chronic obstructive pulmonary disease) J44.9
[2021-01-16 15:21] VITALS: PULSE 74; TEMP 98.4; O2SAT 91
[2021-01-16 15:53] VITALS: BP 134/82
--- NOTE | 2021-01-16 15:54 | Discharge Summary ---
Date of Service date of admission - January 10, 2021 date of discharge - January 16, 2021 Admission HPI Per Admitting Provider Matthew Cadena is a 50 year old male who presents to the ER with shortness of breath and hypoxia from his PCP office. He reports slowly progressively worsening shortness of breath over the last 2 weeks. No fever, chills, nasal congestion, post nasal drip. He has had associated headaches over the same time period which are relieved with acetaminophen. He has a significant history of COPD but is on no maintenance inhalers for this and no exacerbations needing steroids over the last 2 years at least. No significant improvement with his breathing with nebulizer treatment given in the ER. He has a 50-75 pack-year history, quit 12 years ago. Rarely uses his albuterol as needed and has not helped this shortness of breath. He has a significant history of hospitalization in May 2014 with hypercarbic respiratory arrest - his reports he lost 20 lb of fluid weight on this hospitalization with diuretics. He is under [facility] cardiology and per last note in Apr 2020 they had planned on dobutamine stress echo however when he went into get it he had a reaction to the COVID-19 vaccine causing facial droop so was sent to the ER. 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 In the ER he was given Zosyn for possible pneumonia and an hour long duoneb. He was referred to medicine for admission and ongoing management of acute hypoxic respiratory failure. Admission Exam Per Admitting Provider Constitutional: well developed, + acute distress (respiratory) and + morbid ly obese Eyes: PERRL, conjunctivae normal, anicteric sclerae ENMT: external ear and nose normal, oropharynx normal Neck: trachea midline, no thyromegaly + short neck and + thick neck Respiratory: + respiratory distress, + labored breathing, + retractions and + uses accessory muscles; expiratory phase not prolonged Auscultation: + diminished lung sounds (very diminished throughout); no crackles, no rales, no rhonchi and no wheezes Cardiovascular: Rate/Rhythm: regular rate and regular rhythm Heart Sounds: no murmur Extremities: normal capillary refill and + pedal edema (2+ equal to abdomen); no calf tenderness Gastrointestinal (Abdomen): normal bowel sounds, soft, nontender, no hepatosplenomegaly Inspection/Auscultation: + abdomen distended (normal per patient) Musculoskeletal: no cyanosis or clubbing, extremities motor strength 5/5 Skin: no rashes, warm and dry Neurologic: moves all extremities and awake; not confused Psychiatric: A+Ox3, euthymic affect Genitourinary: no CVA tenderness Principal Diagnosis acute/chronic hypoxic/hypercarbic respiratory failure Discharge Exam GENERAL : No acute distress EYES: No icterus, gaze conjugate NOSE: No evidence of epistaxis MOUTH: No lesions or candidiasis NECK: Supple LUNGS: CTA B/L, no wheezes, rales or rhonchi HEART: Regular, rate controlled ABDOMEN: Soft, NT, ND, BS Present EXTREMITIES: No LE edema, pedal pulses intact NEURO: A&OX3 Discharge Data Allergies Allergy/AdvReac Type Severity Reaction Status Date / Time bee pollen Allergy Intermediate swelling Verified 01/20/21 10:59 morphine Allergy Intermediate HIVES Verified 01/20/21 10:59 Cephalosporins Allergy Mild rash Verified 01/20/21 10:59 Consultations 01/10/21 10:57 ED Decision to Admit Stat 01/10/21 22:23 Consult Cardiology Routine Procedures Performed Echocardiogram - * EF 60-65% * right atrial enlargement * right ventricular enlargement * right ventricular systolic dysfunction - mild-moderately reduced Ordered Studies Chest X-Ray 01/10/21 09:49 XR chest 1V portable HISTORY: SEPSIS COMPARISON: Chest CTA 05/24/2020. FINDINGS: No pneumothorax. No pleural effusions. The heart remains mildly enlarged. There are patchy bibasilar densities. This likely represents a pneumonia. IMPRESSION: Small patchy bibasilar densities. This likely represents a pneumonia. ACT 112: Negative or not required by law. Electronically signed by: Kishore Kraft M.D. 01/10/2021 10:[address] 01/11/21 10:43 CT chest diagnostic wo con CT DOSE: 1197.86 mGy.cm HISTORY: Hypoxia, abnormal CXR TECHNIQUE: Multiaxial CT images of the chest were performed without contrast. A dose lowering technique was utilized adhering to the principles of ALARA. COMPARISON: Chest x-ray 01/10/2021. Chest CTA 05/24/2020. FINDINGS: Stable prominent right paratracheal lymph node. No hilar lymphadenopathy. Normal caliber thoracic aorta. The heart is normal in size. Normal esophagus. Mild bilateral gynecomastia. Mild hepatic steatosis. The visualized spleen is unremarkable. Stable mild nodular thickening within the right adrenal gland. Prominent extrapleural fat within the lung bases remains unchanged. Trace right pleural effusion. No pericardial effusion. No fractures within the visualized osseous structures. No pneumothorax. The central airways are patent. Small focal densities within the lower lobes posteriorly, right greater than left. This is nonspecific but favors atelectasis. A pneumonia could also have a similar appearance in the appropriate clinical setting. The central airways are patent. IMPRESSION: 1. Bibasilar densities are nonspecific but favor atelectasis. A pneumonia is considered less likely but not entirely excluded. 2. Hepatic steatosis. ACT 112: Negative or not required by law. Electronically signed by: Kishore Kraft M.D. 01/11/2021 11:[address] 01/12/21 16:21 CT OF THE HEAD WITHOUT CONTRAST CLINICAL HISTORY: Hx [place] Palsy, confusion COMPARISON STUDY: Head CT and CTA of the head May 24, 2020. CT DOSE: 773.57 mGy.cm TECHNIQUE: Helical axial images of the head were obtained without IV contrast. Automated exposure control was utilized for the study. A dose lowering technique was utilized adhering to the principles of ALARA. FINDINGS: This exam is mildly compromised by artifact. Subtle white matter hypodensities are nonspecific but favor small vessel disease. No acute intracranial hemorrhage, midline shift or mass effect is present. The ventricular system is unremarkable. The basal cisterns are patent. No extra- axial collections are present. There are no findings to suggest acute dural sinus thrombosis or acute territorial infarct. No significant calvarial abnormalities are present. Visualized portions of the sinuses and mastoid air cells are clear. IMPRESSION: 1. No acute intracranial findings. Exam mildly compromised by artifact. 2. Subtle white matter hypodensities which are nonspecific but may reflect small vessel disease. ACT 112: Negative or not required by law. Electronically signed by: Abhishek Aquino M.D. 01/12/2021 6:57 PM Hospital Course (1) COPD (chronic obstructive pulmonary disease): (2) Morbid obesity with BMI of 45.0-49.9, adult: (3) Acute respiratory failure with hypoxia and hypercapnia: (4) Iron deficiency: (5) CARLITOS (obstructive sleep apnea): (6) Acute on chronic heart failure with preserved ejection fraction (HFpEF): (7) Hypertension: (8) Type 2 diabetes mellitus: (9) Chronic kidney disease: (10) Hypothyroidism: (11) Hyperlipidemia: (12) Obstructive sleep apnea: (13) Gastroesophageal reflux disease: (14) Chronic right-sided congestive heart failure: (1) Acute on chronic congestive heart failure: Plan: acute/chronic DIASTOLIC CHF - acute component resolved, now euvolemic. appreciate [facility] recs. cont BB. cont lasix - dose reduced to 40mg/day (home dose of furosemide was 20 mg p.o. daily) cont aldactone. follow contraction alkalosis carefully; if any worsening then hold both diuretics - give diamox. BMP am. cont ELVIN. (2) Acute respiratory failure with hypoxia and hypercapnia: Plan: Chronic respiratory failure. PFTs done at bedside shows COPD. [id number] smoking history -patient quit smoking 12 years ago 2-step ordered to determine oxygen requirements for discharge. Arranging for AVAPS-AE machine at discharge given COPD and hypercarbia/CARLITOS. Patient has had eosinophilia. AHMET, ANCA, alpha antitrypsin 1, and IgE are pending. This should be followed up outpatient on discharge COVID-19 and biofire negative. s/p diuresis this admission for #1 with improve pulmonary symptoms. CPAP changed to BIPAP this admission. BIPAP settings increased due to persistent resp acidosis with CO2 retention. repeat VBG this afternoon improved with increased settings. repeat VBG this morning (01/15/2021) had persistent elevation of vCO2 of 78 mmHg Current BiPAP settings are 18/8 with a rate of 12 and an FiO2 of 50%. Due to chronic respiratory failure consequent to COPD, patient now requires a noninvasive home ventilator. Bilevel therapy with and without a rate would has shown to be ineffective as patient requires a volume targeted mode. Ventilation is required to decrease work of breathing and improve pulmonary status. Interruption of ventilator support would lead to decline of health status and possibly . NIMV settings should be AVAPS-AE; Breath rate: auto; Inspiratory time:auto; Sigh: off; PS min: 8; PS max 22; EPAP min: 8; EPAP max: 15; AVAPS rate: 1 During sleep and as needed Patient is current height is 5 foot 9 inches (69 inches). His current weight is 144.6 kg. His deal body weight is 71 kg. Targeted tidal volume should be 560 mL (6 to 8 mL/kg). Patient follows with Dr. Ivey as an outpatient. Would recommend outpatient follow-up with pulmonary function tests as well as repeat polysomnography with titration studies. Will defer further work-up to Dr. Ievy. (3) COPD (chronic obstructive pulmonary disease): Plan: [id number] smoking history. Patient quit smoking 12 years ago Patient is morbidly obese with a BMI of 46.0 kg/m Pulmonary function testing 01/15/2021 reveals severe obstructive disease with mixed restrictive disease Patient will require AVAPSAE ventilation as listed above Patient will need full PFTs as an outpatient including lung volumes and DLCO. This should be conducted pre and post bronchodilators Will empirically start patient on Trelegy (ICS, AC, LABA) until able to be seen by Dr. Ivey with respiratory (4) Hypertension: Plan: Continue carvedilol 6.25mg PO BID Cont ELVIN Cont aldactone Patient is also on furosemide 40 mg p.o. daily during this hospital stay. It should be noted that the patient's home dose of furosemide is 20 mg p.o. daily. controlled (5) Obstructive sleep apnea: Plan: CPAP 12 cm H2O as an outpatient changed to BIPAP while inpatient suspect severe CARLITOS is most likely cause of chronic fatigue, headaches, memory fogginess, etc Concerned with patient's chronic hypercapnic state and elevated PCO2 Will discharge patient with AVAPS-AE noninvasive ventilator with settings as listed above Defer to Dr. Ivey for return to work recommendations for Mr. Cadena (6) Hyperlipidemia: Plan: Continue atorvastatin 20mg PO HS (7) Hypothyroidism: Plan: Continue Levothyroxine 175mcg PO daily TSH wnl this admission (8) Type 2 diabetes mellitus: Plan: HbA1C 6.8% this admission Holding metformin but resume at d/c controlled (9) Gastroesophageal reflux disease: Plan: Continue PPI GERD is severe per cont BID dosing (this is home dose) (10) Iron deficiency: Plan: severe etiology?? h/o esophagitis per will need referral back to Dr Banda for consideration of EGD colonoscopy 06/16 without source of bleed IV venofer 200mg x 1 01/14/2021 Venofer IV 300mg x 1 01/15/2021 Venofer IV 300 mg x 1 10/21/21 H/H have been acceptable fortunately (11) Morbid obesity with BMI of 45.0-49.9, adult: Plan: BMI 45.9 Discussed need of weight loss with patient today. was present yesterday for discussion. Hopefully AVAPS-AE (average volume assured pressure support) will help the patient have less fatigue (12) Hypoxia: Patient does require supplemental oxygen on discharge Equipment being provided by [facility] Patient will need 2 L/min via nasal cannula at rest and 4 L/min via nasal cannula with exertion Rx sent to [facility] Patient needs follow-up with: * Dr. Ivey for pulmonary function testing and polysomnography testing * Dr. Banda to further investigate iron deficiency Total Time Total Time Spent Total Time Spent (In Minutes): 60 Minutes Discharge Plan Discharge Items Patient Disposition: Home - Self-Care Reason For Visit: ACUTE HYPOXIC RESPIRATORY FAILURE Discharge Diagnosis: Acute respiratory failure with hypoxia and hypercapnia COPD with mixed obstructive and restrictive disease Activity: As commented below Activity Comment: You should not drive or operate heavy equipment until seen by Dr. Ivey Lifting: Gradually increase as tolerated Bathing: No limitations Exercise/Sports: Gradually increase as tolerated Driving/Machine Use: After cleared by Dr. Ivey Weightbearing: Full weightbearing Non-emergency contact: Primary Care Provider and Shank Threader Call non-emergency contact if: you have any medication questions and your symptoms worsen Follow-up/Referrals: Nickolas Ivey MD [Physician] - 02/04/21 10:45 am ( ) Jean Claude Banda MD [Physician] - 01/30/21 3:00 pm Luke Holloway, DO [Primary Care Provider] - Diet: Carb Consistent or DM2 and Heart Healthy Diet Comment: You should limit calorie intake to approximately 2000 rocky/day Addtl Attending Provider Instructions: You were admitted with shortness of breath and found to have severe carbon dioxide retention. You were also found to have low oxygen levels requiring supplemental oxygen. You are being discharged home on oxygen via nasal cannula. You are also being discharged home on a noninvasive ventilator. It is critical that you use the oxygen and the noninvasive ventilator as ordered. It is also critical that you follow-up with Dr. Ivey for pulmonary function testing and a repeat sleep study to titrate your equipment. Due to your high carbon dioxide levels, you should not drive or operate heavy equipment until cleared by Dr. Ivey or by Dr. Holloway. Please take all medications as prescribed. Be sure to follow-up with all of your outpatient appointments. Pending Studies at Discharge: No Stand-Alone Forms: [facility] Medications and DC Order Prescriptions: New furosemide 40 mg Tablet 40 mg PO QAM Qty: 30 RF: 0 Continued albuterol sulfate 90 mcg/actuation HFA aerosol inhaler 2 puffs INH Q6H PRN (Reason: shortness of breath or wheezing) Qty: 18 RF: 3 lisinopril 40 mg tablet 40 mg PO QAM Qty: 90 RF: 3 metformin 500 mg tablet extended release 24 hr 500 mg PO BID Qty: 180 RF: 3 (DME) Accu-Chek Michelle Plus test strp Strip See Rx Instructions .ROUTE .MEDSUPPLY Qty: 50 RF: 5 levothyroxine 175 mcg tablet 175 mcg PO QAM Qty: 90 RF: 3 omeprazole 20 mg capsule,delayed release(DR/EC) 20 mg PO BID Qty: 180 RF: 3 atorvastatin [Lipitor] 20 mg tablet 20 mg PO HS RF: 0 carvedilol 6.25 mg tablet 6.25 mg PO BID RF: 0 spironolactone 25 mg tablet 12.5 mg PO QAM RF: 0 multivitamin Tablet 1 tab PO QAM RF: 0 Vitamin D3 500 Iu 500 units PO QAM RF: 0 Discontinued furosemide 20 mg tablet 20 mg PO QAM RF: 0 Discharge Orders: Discharge Order (Routine); Ordered 01/16/21 Ordered By: Mati Stein/Other Patient Handouts: A1C, Managing Type 2 Diabetes Admission Data Admit Date/Time: 01/10/21 12:41 Attending Provider: Yuri Pedraza Admit Provider: Yuri Rutledge Primary Care Provider: Luke Holloway Other Providers: Yuri Rutledge ; Titi Ruby Other Interventions: Discharge Summary Assessment (RN) Last Done: 01/16/21 15:52 Supervising Physician Co-Signing Physician Notes Attending Attestation & Discharge Note: Pt seen/examined, chart reviewed, discharge care plan d/w PA Mati Varma. I agree w/ the barnes components of his discharge documentation. 50yo male with morbid obesity, diastolic CHF, long-standing tobacco dependence - presented with worsening dyspnea and edema. Treated for acute/chronic CHF - combination of right-sided CHF and diastolic CHF. Diuresed during the stay with discharge weight of 141 kg. [facility] provided barnes recommendations for his cardiac care while here. He will continue coreg, lisinopril, and lasix 40mg daily. In addition, he was treated for significant CO2 retention with BIPAP. CO2 retention likely due to combination of COPD, obesity-hypoventilation, and CARLITOS. Mr Avani was instrumental in coordinating the set-up of AVAPS at time of discharge. 2-step ambulatory O2 test also demonstrated a need for home O2 -- 2 liters at rest, 4 liters with activity. Lastly, in addition to his cardiopulmonary issues, we found evidence of severe iron deficiency with transferrin sat of 8% and ferritin of 16. He received venofer x 3 infusions while here. Suspect poorly controlled CARLITOS, severe iron deficiency, and CO2 retention are big players in his chronic fatigue and mental fogginess. Hopefully these issues will improve with treatment of the above. Discharge exam: gen - obese, NAD, awake/alert neck - no JVD heart - RRR, s1 s2, no murmur lungs - CTA b/l, mild decreased BS bases abd - soft, NT, ND, BS+ Ext - no edema, pulses 2+ b/l He will [facility], [facility] (for Fe def), and his PCP due to his complex medical problems. Yuri Pedraza MD Coding Level of Care Code D/C DAY MANAGEMENT >30 MINS Diagnoses COPD (chronic obstructive pulmonary disease) J44.9 Morbid obesity with BMI of 45.0-49.9, adult E66.01; Z68.42 Acute respiratory failure with hypoxia and hypercapnia J96.01; J96.02 Iron deficiency E61.1 CARLITOS (obstructive sleep apnea) G47.33 Acute on chronic heart failure with preserved ejection fraction (HFpEF) I50.33 Hypertension I10 Type 2 diabetes mellitus E11.9 Chronic kidney disease N18.9 Hypothyroidism E03.9 Hyperlipidemia E78.5 Obstructive sleep apnea G47.33 Gastroesophageal reflux disease K21.9 Chronic right-sided congestive heart failure I50.812 Time Spent (min) 60
[2021-01-20 18:31] LABS: ANCA Screen Negative (Negative); Anti Nuclear Antibody Screen NEGATIVE (NEGATIVE); Immunoglobulin IgE 569 kU/L (<OR=114)
--- NOTE | 2021-01-24 06:08 | Coding Query ---
CODING QUERY To promote full compliance with coding requirements relating to patient care, provider participation is requested in all cases of cryptologist uncertainty. Please assist us with the question(s) below: Coding Question(s): Pt admitted with acute hypoxic /hypercapneic respiiratory failure with Chronic respiratory failure. Also in CHF exacerbation with underlying COPD. Obesity, BMI of 45 . Cardiology consult note 01/11 states diastolic CHF due to Obesity Hypoventilation syndrome and obstructive sleep apnea. Pt with home CPAP- during course of Hospital stay patient changed to Bipap machine. Patient with pre- existing COPD. Seeking to clarify, the etiology of the patient's acute/chronic respiratory failure . Thanks for your help ! Alexandru Roth, [facility] Physician's Response(s): acute resp failure component -- CHF exacerbation. chronic resp failure component -- COPD, obesity-hypoventilation syndrome, CARLITOS. Principal Diagnosis: "that condition established after study, to be chiefly responsible for occasioning the admission of the patient to the hospital for care." Co-Existing Principal Diagnosis: "when two or more diagnoses equally meet the criteria for principal diagnosis as determined by the circumstances of admission, diagnostic work up, and/or therapy provided, and the Alphabetic Index, Tabular List, or another coding guideline does not provide sequencing direction, any one of the diagnoses may be sequenced first." "When the physician has documented what appears to be a current diagnosis in the body of the record, but has not included the diagnosis in the final diagnostic statement, the physician should be asked whether the diagnosis should be added." (Source Coding [facility] 2 QTR90. p3-4) JAIMEE
== END 2021-01-16 16:34 | disposition home or self-care (01) | DRG 189 ==
LOC: ED 09:35 → 2S 12:41 → SUATTDRO 12:41 → 2S 17:16

== ENCOUNTER 2022-07-13 15:02 | Inpatient (IN) ==
[2022-07-13] MEDS ORDERED: ALBUT/IPRATROP 3MG/0.5MG NEB 3 ML VIAL NEB STA (15:12)
[2022-07-13] MEDS ORDERED: methylPREDNISolone 125 MG/2 ML VIAL IV STA (15:12)
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
[2022-07-13 15:37] LABS: Basophils # (auto) 0.07 K/uL (0-0.2); Basophils % (auto) 0.6 %; Eosinophils # (auto) 0.34 K/uL (0-0.50); Eosinophils % (auto) 2.7 %; Hematocrit (blood only) 46.3 % (42.0-52.0); Hemoglobin 13.9 g/dl (14.0-18.0); Immature Granulocytes # (auto) 0.09 K/uL (0.01-0.20); Immature Granulocytes % (auto) 0.7 %; Lymphocytes # (auto) 1.43 K/uL (1.2-3.4); Lymphocytes % (auto) 11.5 %; Mean Corpuscular Hemoglobin 28.5 pg (25.0-34.0); Mean Corpuscular Volume 95.1 fL (80.0-100.0); Monocytes # (auto) 0.83 K/uL (0.11-0.59); Monocytes % (auto) 6.7 %; Neutrophils # (auto) 9.72 K/uL (1.40-6.50); Neutrophils % (auto) 77.8 %; Nucleated RBC # (auto) 0.02 K/uL (0-0.12); Nucleated RBC % (auto) 0.2 %; Platelet Count 261 K/uL (130-400); RDW Standard Deviation 54.5 fL (36.4-46.3); Red Blood Count 4.87 M/uL (4.70-6.10); White Blood Count 12.48 K/ul (4.8-10.8)
[2022-07-13 16:02] LABS: BUN Creatinine Ratio 11.4 (10-20); Bilirubin Direct 0.1 mg/dl (0-0.2); Bilirubin,Total 0.5 mg/dl (0.2-1.0); Calcium 8.7 mg/dl (8.6-10.3); Creatinine Clr Calc Pharmacy 124.8 ml/min; Est GFR (African American) 93.5 ml/min; Est GFR (Non-African American) 80.7 ml/min; Magnesium 1.5 mg/dl (1.7-2.4); Potassium 4.5 mmol/L (3.5-5.1); Total Protein 7.7 gm/dl (6.0-8.3)
[2022-07-13 16:05] LABS: Troponin I High Sensitivity 18.7 pg/ml (0-20)
[2022-07-13 16:11] LABS: INR 1.1 (0.9-1.1); Partial Thromboplastin Ratio 0.9; Partial Thromboplastin Time 24.9 Seconds (21.0-31.0); Prothrombin Time 11.3 Seconds (9.0-12.0)
[2022-07-13 16:15] LABS: Base Excess VBG 17.5 mEq/L; HCO3 VBG 49 mmol/L; Oxygen Saturation VBG 79.7 %; PCO2 VBG 92 mmHg (38-50); PO2 VBG 50 mmHg; pH VBG 7.33 (7.36-7.41)
[2022-07-13] MEDS ORDERED: ACETAMINOPHEN 1,000 MG/100 ML VIAL IV STA (16:38)
[2022-07-13] MEDS ORDERED: MAGNESIUM SULFATE / D5W 1 GM/100 ML BAG IV STA (16:39)
--- NOTE | 2022-07-13 16:41 | XRay Report ---
XR chest 1V portable CLINICAL HISTORY: Sepsis TECHNIQUE: Single frontal radiograph of the chest was obtained. Comparison: Comparison is made to chest radiograph 02/10/2021 FINDINGS: Exam is limited by underpenetration. Cardiomegaly is noted. There is prominence and cephalization of the vasculature with Bernard B lines seen. Pleural effusions cannot be excluded. IMPRESSION: Cardiomegaly and moderate pulmonary edema. Exam is limited by underpenetration. Pleural effusions can not be excluded. ACT 112: Negative or not required by law. Electronically signed by: Otto Bruner M.D. 07/13/2022 4:40 PM
[2022-07-13 16:51] LABS: Influenza A virus by PCR Negative (Neg); Influenza B virus by PCR Negative (Neg); RSV by PCR Negative (Neg); SARS CoV2 RNA(COVID-19) Ceph NEGATIVE (Negative)
[2022-07-13] MEDS ORDERED: FUROSEMIDE 40 MG/4 ML VIAL IV ONE (16:53)
[2022-07-13] MEDS ORDERED: fentaNYL citrate PF 100 MCG/2 ML VIAL IV PRN (16:54)
[2022-07-13] MEDS ORDERED: ONDANSETRON INJ 2 MG/ML 2 ML VIAL IV STA (16:54)
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
--- NOTE | 2022-07-13 17:57 | Electrocardiogram Report ---
Test Reason : Blood Pressure : / mmHG Vent. Rate : 087 BPM Atrial Rate : 087 BPM P-R Int : 148 ms QRS Dur : 098 ms QT Int : 376 ms P-R-T Axes : 033 -01 047 degrees QTc Int : 452 ms Normal sinus rhythm Poor R wave progression, consider anterior SD vs. lead placement vs. LVH When compared with ECG of 10-JAN-2021 10:18, No significant change was found Confirmed by Al Moses ([id number]) on 07/13/2022 5:57:17 PM Referred By: Confirmed By:Randolph Moses
[2022-07-13] MEDS ORDERED: traMADol HCL 50 MG TABLET PO STA (17:59)
[2022-07-13] MEDS ORDERED: NALOXONE HCL 0.4 MG/1 ML VIAL/CARP ONE (18:16)
[2022-07-13] MEDS ORDERED: NALOXONE HCL 0.4 MG/1 ML VIAL/CARP IV STA (18:16)
[2022-07-13] MEDS ORDERED: RAPID SEQUENCE INDUCTION BAG ONE (18:36)
[2022-07-13 18:48] LABS: Base Excess VBG 10.9 mEq/L; HCO3 VBG 45 mmol/L; Oxygen Saturation VBG 91.1 %; PCO2 VBG 122 mmHg (38-50); PO2 VBG 74 mmHg; pH VBG 7.17 (7.36-7.41)
[2022-07-13] MEDS ORDERED: STAT IV Infusion **Titration per Protocol STA ×3 (19:06→20:02)
[2022-07-13] MEDS ORDERED: fentaNYL citrate PF 100 MCG/2 ML VIAL IV ONE (19:18)
[2022-07-13] MEDS: propofoL 1,000 MG/100 ML VIAL IV SCH ×3 (19:23→23:46)
[2022-07-13] MEDS: PROPOFOL BOLUS FROM BAG IV PRN ×2 (19:24→22:47)
[2022-07-13 19:49] LABS: Appearance Urine Clear (Clear); Bacteria Urine Automated Negative (Negative); Bilirubin Urine Negative (Negative); Blood Urine Negative (Negative); Color Urine Dark Yellow; Glucose Urine UA Negative (Negative); Ketones Urine Negative (Negative); Leukocyte Esterase Urine Negative (Negative); Nitrite Urine Negative (Negative); Protein Urine 3+ (Negative); RBC Urine Automated 0-4 /hpf (0-4); Specific Gravity Urine 1.022 (1.000-1.030); Urobilinogen Urine Negative (Negative); pH Urine 5.5 (4.5-7.5)
[2022-07-13] MEDS ORDERED: fentaNYL BOLUS from BAG IV PRN (19:52)
[2022-07-13] MEDS ORDERED: fentaNYL citrate PF 100 MCG/2 ML VIAL IV STA (20:03)
[2022-07-13] MEDS ORDERED: ACETAMINOPHEN 500 MG TAB PO PRN (20:03)
[2022-07-13] MEDS ORDERED: NITROGLYCERIN SL 0.4 MG/TAB TAB SL PRN (20:03)
[2022-07-13] MEDS: NOREPINEPHRINE/D5W 4 MG/250 ML PLCT IV SCH (20:08)
[2022-07-13] MEDS: fentaNYL citrate 2,500 MCG/250 ML BAG IV SCH (20:08)
[2022-07-13] MEDS: MAGNESIUM SULFATE / D5W 1 GM/100 ML BAG IV SCH ×2 (20:18→22:18)
--- NOTE | 2022-07-13 20:27 | CT Scan Report ---
Exam(s): CT HEAD Without Contrast EXAM: CT Head Without Intravenous Contrast CLINICAL HISTORY: Reason for exam: hypertensive, hypercarbic encephalopathy. TECHNIQUE: Axial computed tomography images of the head/brain without intravenous contrast. CTDI is 57.46 mGy and DLP is 1010.38 mGy-cm. Automated exposure control was utilized for the study. A dose lowering technique was utilized adhering to the principles of ALARA. COMPARISON: No relevant prior studies available. FINDINGS: No acute intracranial hemorrhage. No midline shift or mass effect. The territorial jamison-white matter differentiation is maintained throughout. Age-related cerebral volume loss. Periventricular and subcortical white matter hypoattenuation, consistent with chronic microangiopathy. The visualized orbits appear grossly unremarkable. The calvarium is intact. Mild paranasal sinus mucosal thickening. IMPRESSION: No acute intracranial hemorrhage, midline shift, or mass effect. Electronically signed by: Rudy Dupnot MD 07/13/22 20:26 PM
[2022-07-13 20:46] LABS: iSTAT Allen Test Pass; iSTAT Arterial Blood Gas HCO3 40 meg/L (19-24); iSTAT Arterial Blood Gas pCO2 87 mmHg (35-46); iSTAT Arterial Blood Gas pH 7.27 (7.35-7.45); iSTAT Arterial Blood Gas pO2 62 mmHg (80-95); iSTAT Carbon Dioxide > 40 mmol/L (24-31); iSTAT FiO2 100 %; iSTAT Site L Radial
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
--- NOTE | 2022-07-13 21:09 | Procedure Note ---
Procedure Note Date of Service July 13, 2022 Note INTERNAL JUGULAR CENTRAL LINE PROCEDURE NOTE: Procedure: Internal Jugular Central Line Placement Proceduralist: Edmond URBINA ([facility]) Attending: Dr. De La Vega Indication: Central Drug Administration, Poor Venous Access, Multiple Lab Draws Necessary, etc. Anesthesia: [x]Lidocaine 1% Verbal Consent was obtained from . Need of procedure, risks and benefits were discussed to include but not limited to- infection, pain, damage to surrounding tissues, malposition or inadvertent arterial placement, pneumothorax, infection, need for further procedures and/or . A time-out was completed verifying correct patient, procedure, site, Patients RIGHT Neck was cleansed and draped in the typical sterile fashion using Chloraprep. The Internal Jugular Vein and Carotid Artery were identified using ultrasound. The superficial tissue was anesthetized using 5 mL of 1% lidocaine without epinephrine under direct visualization with the ultrasound. After adequate anesthetization was achieved, the Internal Jugular vein was cannulated under direct ultrasound guidance using an introducer needle on a syringe. Good venous blood return was maintained prior to removal of syringe from introducer needle. Using Seldinger Technique, a guide wire was advanced through the introducer needle without resistance. The introducer needle was removed and ultrasound images were obtained of the guide wire within the Internal Jugular Vein. A small incision was made in penetrating fashion at the guide wire insertion site utilizing an 11 blade scalpel. The dilator was advanced to the vessel without resistance. The dilator was exchanged for the triple lumen catheter which was advanced into the vessel without resistance. The guide wire was removed intact from the catheter without issue. Claves were placed on each catheter tip with confirmation of good blood flow from each lumen. Each port was easily flushed with sterile saline. The catheter was placed at 18 cm and sutured in place. Bio-Patch was applied to the catheter and a sterile Tegaderm dressing was applied over the catheter with careful attention to sterility. Patient tolerated procedure well. No immediate complications were met. Post procedure x-ray was completed, placement was appropriate and no pneumothorax was noted. Images obtained are saved for permanent record Procedural Ultrasound Guidance: Procedure Date: Indication: Direct visualization of RIGHT IJ CENTRAL LINE PLACeMENT Proceduralist: Edmond URBINA ([facility]) Attending: Dr. De La Vega Artery AND Vein visualized: YES Compressible Vein: YES Guidewire or Short Catheter seen in vein prior to dilation: YES Images obtained are were not saved for permanent record as need was urgent for poor access and hemodynamic support. Coding CPT Codes Tubes, Drains, and Vasc Access - Tubes, Drains, and Vasc Access: [id number] Insertion Of Non-tunneled Catheter Age 4 Yrs> ([id number]) Tubes, Drains, and Vasc Access - Tubes, Drains, and Vasc Access: [id number] Ultrasound Guidance For Vascular ([id number]) [facility] [place] Codes (Charges) Tubes, Drains, and Vasc Access Procedure 1: Tubes, Drains, and Vasc Access: [id number] Insertion Of Non-tunneled Catheter Age 4 Yrs> Procedure 2: Tubes, Drains, and Vasc Access: [id number] Ultrasound Guidance For Vascular
[2022-07-13] MEDS: fentaNYL BOLUS from BAG IV PRN (22:47)
[2022-07-13] MEDS: ATORVASTATIN 40 MG TAB PO SCH (22:50)
[2022-07-13] MEDS: ENOXAPARIN INJ 40 MG/0.4 ML SYR SQ SCH (22:50)
[2022-07-13] MEDS: carvediloL 6.25 MG TAB PO SCH (22:50)
[2022-07-13] MEDS: LANTUS PER UNIT CHARGE SQ SCH (22:51)
[2022-07-13] MEDS: NYSTATIN POWDER 15GM BTL EXT SCH (22:52)
[2022-07-13] MEDS: INSULIN ASPART PER UNIT CHARGE SC SCH (22:59)
[2022-07-14] MEDS ORDERED: FUROSEMIDE 40 MG/4 ML VIAL IV ONE (00:40)
[2022-07-14] MEDS: propofoL 1,000 MG/100 ML VIAL IV SCH ×11 (01:39→23:48)
[2022-07-14] MEDS ORDERED: ALBUTEROL 0.083% NEBU SOLN 3 ML VIAL NEB PRN (01:58)
[2022-07-14] MEDS ORDERED: methylPREDNISolone 60 MG in SYRINGE 0 ML IV ONE (02:15)
[2022-07-14] MEDS ORDERED: ENOXAPARIN INJ 40 MG/0.4 ML SYR SQ SCH (02:45)
[2022-07-14 03:26] LABS: iSTAT Allen Test Pass; iSTAT Art Bld Gas pCO2 Correct 63 mmHg (35-46); iSTAT Art Bld Gas pH Corrected 7.407 (7.35-7.45); iSTAT Arterial Blood Gas HCO3 39 meg/L (19-24); iSTAT Arterial Blood Gas pCO2 61 mmHg (35-46); iSTAT Arterial Blood Gas pH 7.41 (7.35-7.45); iSTAT Arterial Blood Gas pO2 71 mmHg (80-95); iSTAT Arterial Blood Gas pO2 C 73; iSTAT Carbon Dioxide > 40 mmol/L (24-31); iSTAT FiO2 100 %; iSTAT Hematocrit 48 % (42-52); iSTAT Hemoglobin 16.3 g/dl (14.0-18.0); iSTAT Potassium 4.4 mmol/L (3.3-5.0); iSTAT Site L Radial; iSTAT Sodium 136 mmol/L (135-144)
[2022-07-14] MEDS: NOREPINEPHRINE/D5W 4 MG/250 ML PLCT IV SCH (03:37)
[2022-07-14] MEDS: fentaNYL BOLUS from BAG IV PRN ×2 (04:00→14:30)
[2022-07-14] MEDS: PROPOFOL BOLUS FROM BAG IV PRN (04:51)
[2022-07-14 05:38] LABS: BUN Creatinine Ratio 13.8 (10-20); Calcium 8.7 mg/dl (8.6-10.3); Creatinine Clr Calc Pharmacy 91.9 ml/min; Est GFR (African American) 67.2 ml/min; Potassium 4.7 mmol/L (3.5-5.1)
[2022-07-14 05:40] LABS: Magnesium 1.9 mg/dl (1.7-2.4); Phosphorus 1.2 mg/dl (2.5-4.9)
[2022-07-14] MEDS: ICU ELECTROLYTE REPLACEMENT PROTOCOL SCH ×2 (05:56→20:22)
[2022-07-14] MEDS ORDERED: SODIUM PHOSPHATE 3 MMOL/1 ML INFUSION IV STA (05:59)
[2022-07-14] MEDS: LEVOTHYROXINE SODIUM 200 MCG TABLET PO SCH (06:02)
[2022-07-14] MEDS: FUROSEMIDE 40 MG/4 ML VIAL IV SCH ×3 (06:02→21:13)
[2022-07-14] MEDS ORDERED: SODIUM PHOSPHATE 30 MMOL in SODIUM CHLORIDE 0.9% 500 ML IV ONE (06:30)
[2022-07-14] MEDS ORDERED: ICU Protocol for HYPERglycemia SCH (07:30)
[2022-07-14] MEDS: INSULIN ASPART PER UNIT CHARGE SC SCH ×4 (07:34→23:42)
[2022-07-14 07:50] LABS: Estimated Average Glucose 151 mg/dl; Hemoglobin A1C 6.9 % (4.5-5.6)
--- NOTE | 2022-07-14 07:53 | XRay Report ---
XR chest 1V portable HISTORY: 52 years-old Male post intubation acute respiratory failure COMPARISON: 07/13/2022 at 4:18 PM TECHNIQUE: AP view of the chest FINDINGS: Cardiac silhouette is enlarged. Pulmonary vascular congestion with interstitial coarsening. Layering pleural effusions with left greater than right bibasilar consolidation. Endotracheal tube overlies th e midline, 2.9 cm superior to the nixon. Bones appear grossly intact. IMPRESSION: 1. Endotracheal tube overlies the midline, 2.9 cm superior to the nixon. 2. Cardiomegaly with pulmonary edema 3. Layering pleural effusions with left greater than right bibasilar consolidation. 4. No pneumothorax. ACT 112: Negative or not required by law. The above report was generated using voice recognition software. It may contain grammatical, syntax o r spelling errors. Electronically signed by: Jerrod Gale M.D. 07/14/2022 7:51 AM
[2022-07-14] MEDS ORDERED: PERFLUTREN LIPID MICROSPHERE (DEFINITY) IV ONE (07:59)
--- NOTE | 2022-07-14 08:03 | XRay Report ---
XR chest 1V portable CLINICAL HISTORY: evaluate ETT placement following patient movement TECHNIQUE: Single frontal radiograph of the chest was obtained. Comparison: Comparison is made to chest radiograph 07/13/2022 FINDINGS: Exam is limited by underpenetration. Endotracheal tube measures 26 mm from the nixon, similar to bairon or exam. Other lines and tubes are stable. Cardiomegaly is noted. Bibasilar airspace opacities are se en. Small bilateral pleural effusions are seen. IMPRESSION: 1. Lines and tubes are stable, endotracheal tube is in satisfactory appearance. 2. Small bilateral pleural effusions. Bibasilar airspace opacities are unchanged and may represent a telectasis, pneumonia, and/or aspiration. ACT 112: Negative or not required by law. Electronically signed by: Otto Bruner M.D. 07/14/2022 8:02 AM
[2022-07-14] MEDS: ENOXAPARIN INJ 40 MG/0.4 ML SYR SQ SCH ×2 (08:53→21:06)
[2022-07-14] MEDS: NYSTATIN POWDER 15GM BTL EXT SCH ×3 (08:53→21:06)
[2022-07-14] MEDS: MULTIVITAMIN TAB PO SCH ×2 (08:53→08:56)
[2022-07-14] MEDS: CHOLECALCIFEROL 400 UNITS 10 MCG TAB PO SCH (08:53)
[2022-07-14] MEDS ORDERED: NYSTATIN POWDER 15GM BTL EXT SCH (09:00)
--- NOTE | 2022-07-14 09:08 | XRay Report ---
XR chest 1V portable HISTORY: 52 years-old Male s/p placement of central line and OGT placement acute respiratory failure COMPARISON: Chest radiograph 07/13/2022 TECHNIQUE: AP view of the chest FINDINGS: Cardiac silhouette is enlarged. Pulmonary vascular congestion with interstitial coarsening. Layering pleural effusions with bibasilar consolidation again noted. Endotracheal tube overlies the midline, 2 .1 cm superior to the nixon. Status post placement of a right IJ central venous catheter distal tip in the expected location of the inferior SVC. Enteric tube has also been placed with distal tip exten ding inferiorly outside the [id number], likely within the stomach. Bones appear grossly intact. IMPRESSION: 1. Lines and tubes as above. No pneumothorax. 2. Cardiomegaly with pulmonary edema 3. Layering pleural effusions with bibasilar consolidation. ACT 112: Negative or not required by law. The above report was generated using voice recognition software. It may contain grammatical, syntax o r spelling errors. Electronically signed by: Jerrod Gale M.D. 07/14/2022 9:07 AM
[2022-07-14] MEDS: FLUTICASONE/VILANTEROL 100/25MCG 14 PUFFS/INHALER INH SCH (09:38)
--- NOTE | 2022-07-14 09:44 | Critical Care Progress Note ---
Date of Service July 14, 2022 Assessment & Plan (1) Respiratory failure: (2) Hypoxia: (3) COPD (chronic obstructive pulmonary disease): (4) NAFLD (nonalcoholic fatty liver disease): (5) Type 2 diabetes mellitus with albuminuria: (6) Acute on chronic right-sided congestive heart failure: (7) Severe obesity (BMI >= 40): (8) Chronic kidney disease: (9) CARLITOS (obstructive sleep apnea): Plan Reason Critically Ill: 52 YOM presented with complaints of increased dyspnea, was emergently intubated in EMD for failure on BiPAP in the setting of hypercarbic and hypoxic respiratory failure in a morbidly obese male. WIll admit to ICU continue diuresing as well as continued steroid and nebulizers for his COPD Neuro - Metabolic encephalopathy, Sedation for mechanical ventilation CAM ICU: SRAVANTHI - Encephalopathy secondary to hypercarbia and hypoxia - CT head without acute process- His headache likely related to his HTN and Hypercarbia Cardiac - HFpEF acute on chronic exacerbation - pulmonary edema on CXR- diurese 40 mg lasix at 0200 and then 40mg IV lasix q8 - Vasopressors as needed for MAP >65- hypotension related to sedation Respiratory - COPD exacerbation, hypercarbic respiratory failure, hypoxic respiratory failure requiring intubation and mechanical ventilation, CARLITOS, obesity hypoventilation syndrome - ABG with notable hypercarbia, body habitus makes physical exam very limited to non-existent to appreciate wheezes or air movement - diurese as above - COVID/FLU/RSV negative- -I think PE is unlikely -Continue steroids -60+ pack year smoking history, discontinued approximately 9 years ago GI - MPO RENAL/LYTES - CKD - 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 -Increase in creatinine however not meeting URI criteria at the present moment - ICU electrolyte protocol - replete mag - No acute needs - Paulino to gravity ENDO - DMII, Hypothyroidism - ICU hyperglycemic protocol HEME - No acute needs - mild luekocytosis likely secondary to stress - follow clinical course ID - As above -Obtained bronchoscopy specimen -Started on Levaquin for antibiotic coverage LINES/IV ACCESS - CVL, PIV, Paulino, ETT, OGT Continue use of these lines DVT PROPHYLAXIS - SCDS, Lovenox 40mg SUBQ q12 DISPO: ICU while intubated I have personally spent 45 minutes of critical care time in the direct management of this patient. This is a life/limb threatening event. This includes time spent evaluating patient, direct bedside care, chart review, placing orders, interpretation of diagnostic studies, discussion with consultants, patient, and family members, as well as other required patient management activities. This time is exclusive of all separately billable procedures, separate from and in addition to any other critical care service time. Admission and Anticipated Discharge Date Admission Date: July 13, 2022 Subjective No overnight events. Review of Systems Review of Systems: Unobtainable due to endotracheal tube Physical Exam Physical Exam: General: Sedated. nontoxic. Skin: Warm, dry, Head: Atraumatic Ears, nose, mouth and throat: airway obscured by endotracheal tube Cardiovascular: Normal peripheral perfusion Respiratory: Ventilator settings reviewed Gastrointestinal: Non distended Musculoskeletal: No deformity Results & Data Results & Data Vital Signs (Past 12 Hours) Vital Signs Temp Pulse Pulse Resp BP Pulse Ox Pulse Ox 07/14/22 08:16 36.9 C 67 24 134/74 94 07/14/22 08:01 36.8 C 67 24 136/71 94 07/14/22 07:46 36.8 C 70 24 135/87 94 07/14/22 07:31 36.8 C 70 24 147/81 H 95 07/14/22 07:16 36.8 C 69 24 138/71 94 07/14/22 07:23 68 24 95 07/14/22 04:00 36.7 C 07/14/22 02:00 36.7 C 07/14/22 06:45 36.7 C 69 26 H 120/70 94 07/14/22 06:30 36.1 C L 73 18 113/64 94 07/14/22 06:15 75 24 136/82 94 07/14/22 06:00 75 24 142/86 H 95 07/14/22 05:45 76 24 143/84 H 95 07/14/22 05:30 74 21 135/81 94 07/14/22 05:15 73 24 140/83 94 07/14/22 05:00 72 24 134/79 94 07/14/22 03:35 71 24 93 07/14/22 04:45 67 24 140/76 93 07/14/22 04:30 70 24 132/76 92 07/14/22 04:15 67 24 151/80 H 91 07/14/22 04:00 68 24 147/76 H 85 L 07/14/22 03:45 72 24 154/73 H 92 07/14/22 03:30 71 24 176/85 H 92 07/14/22 04:00 07/14/22 03:30 24 07/14/22 03:15 69 24 154/86 H 93 07/14/22 03:00 70 24 147/75 H 93 07/14/22 02:30 71 24 139/70 94 07/14/22 02:15 70 24 136/65 93 07/14/22 02:00 70 24 126/64 94 07/14/22 01:45 71 24 129/69 93 07/14/22 01:30 78 20 141/66 H 71 L 07/14/22 01:00 62 26 H 143/68 H 94 07/14/22 00:45 59 L 28 H 141/65 H 93 07/14/22 00:30 69 25 H 84/45 L 92 07/14/22 00:15 69 24 96/49 L 93 07/14/22 00:00 66 24 139/63 93 07/13/22 23:45 70 24 133/64 93 07/13/22 23:30 71 21 143/73 H 94 07/13/22 23:15 73 24 140/69 95 07/13/22 23:00 69 24 139/72 95 07/13/22 22:45 64 24 145/64 H 97 07/13/22 22:30 63 24 134/64 97 07/13/22 22:15 65 24 136/64 98 07/13/22 22:00 57 L 24 144/78 H 98 07/14/22 00:00 73 07/14/22 00:00 07/13/22 23:55 24 07/13/22 21:45 61 24 158/81 H 98 07/13/22 22:44 37.5 C 07/13/22 22:00 07/13/22 22:11 07/13/22 22:08 58 L 07/13/22 22:07 98 O2 Del Method O2 Del Method FiO2 07/14/22 08:16 Mechanical Vent 70 07/14/22 08:01 Mechanical Vent 70 07/14/22 07:46 Mechanical Vent 70 07/14/22 07:31 Mechanical Vent 70 04/18/23 07:16 Mechanical Vent 70 07/14/22 07:23 70 07/14/22 04:00 07/14/22 02:00 07/14/22 06:45 07/14/22 06:30 07/14/22 06:15 07/14/22 06:00 07/14/22 05:45 07/14/22 05:30 07/14/22 05:15 07/14/22 05:00 07/14/22 03:35 Mechanical Vent 100 07/14/22 04:45 07/14/22 04:30 07/14/22 04:15 07/14/22 04:00 07/14/22 03:45 07/14/22 03:30 07/14/22 04:00 80 07/14/22 03:30 80 07/14/22 03:15 07/14/22 03:00 07/14/22 02:30 07/14/22 02:15 07/14/22 02:00 07/14/22 01:45 07/14/22 01:30 07/14/22 01:00 07/14/22 00:45 07/14/22 00:30 07/14/22 00:15 07/14/22 00:00 07/13/22 23:45 07/13/22 23:30 07/13/22 23:15 07/13/22 23:00 07/13/22 22:45 07/13/22 22:30 07/13/22 22:15 07/13/22 22:00 07/14/22 00:00 07/14/22 00:00 80 07/13/22 23:55 50 07/13/22 21:45 07/13/22 22:44 07/13/22 22:00 Mechanical Vent 07/13/22 22:11 80 07/13/22 22:08 07/13/22 22:07 Mechanical Vent Critical Care Results & Data Vital Signs (Past 12 Hours) Vital Signs Temp Pulse Pulse Resp BP Pulse Ox Pulse Ox 07/14/22 08:16 36.9 C 67 24 134/74 94 07/14/22 08:01 36.8 C 67 24 136/71 94 07/14/22 07:46 36.8 C 70 24 135/87 94 07/14/22 07:31 36.8 C 70 24 147/81 H 95 04/18/23 07:16 36.8 C 69 24 138/71 94 07/14/22 07:23 68 24 95 07/14/22 04:00 36.7 C 07/14/22 02:00 36.7 C 07/14/22 06:45 36.7 C 69 26 H 120/70 94 07/14/22 06:30 36.1 C L 73 18 113/64 94 07/14/22 06:15 75 24 136/82 94 07/14/22 06:00 75 24 142/86 H 95 07/14/22 05:45 76 24 143/84 H 95 07/14/22 05:30 74 21 135/81 94 07/14/22 05:15 73 24 140/83 94 07/14/22 05:00 72 24 134/79 94 07/14/22 03:35 71 24 93 07/14/22 04:45 67 24 140/76 93 07/14/22 04:30 70 24 132/76 92 07/14/22 04:15 67 24 151/80 H 91 07/14/22 04:00 68 24 147/76 H 85 L 07/14/22 03:45 72 24 154/73 H 92 07/14/22 03:30 71 24 176/85 H 92 07/14/22 04:00 07/14/22 03:30 24 07/14/22 03:15 69 24 154/86 H 93 07/14/22 03:00 70 24 147/75 H 93 07/14/22 02:30 71 24 139/70 94 07/14/22 02:15 70 24 136/65 93 07/14/22 02:00 70 24 126/64 94 07/14/22 01:45 71 24 129/69 93 07/14/22 01:30 78 20 141/66 H 71 L 07/14/22 01:00 62 26 H 143/68 H 94 07/14/22 00:45 59 L 28 H 141/65 H 93 07/14/22 00:30 69 25 H 84/45 L 92 07/14/22 00:15 69 24 96/49 L 93 07/14/22 00:00 66 24 139/63 93 07/13/22 23:45 70 24 133/64 93 07/13/22 23:30 71 21 143/73 H 94 07/13/22 23:15 73 24 140/69 95 07/13/22 23:00 69 24 139/72 95 07/13/22 22:45 64 24 145/64 H 97 07/13/22 22:30 63 24 134/64 97 07/13/22 22:15 65 24 136/64 98 07/13/22 22:00 57 L 24 144/78 H 98 07/14/22 00:00 73 07/14/22 00:00 07/13/22 23:55 24 07/13/22 21:45 61 24 158/81 H 98 07/13/22 22:44 37.5 C 07/13/22 22:00 07/13/22 22:11 07/13/22 22:08 58 L 07/13/22 22:07 98 O2 Del Method O2 Del Method FiO2 07/14/22 08:16 Mechanical Vent 70 07/14/22 08:01 Mechanical Vent 70 07/14/22 07:46 Mechanical Vent 70 07/14/22 07:31 Mechanical Vent 70 07/14/22 07:16 Mechanical Vent 70 07/14/22 07:23 70 07/14/22 04:00 07/14/22 02:00 07/14/22 06:45 07/14/22 06:30 07/14/22 06:15 07/14/22 06:00 07/14/22 05:45 07/14/22 05:30 07/14/22 05:15 07/14/22 05:00 07/14/22 03:35 Mechanical Vent 100 07/14/22 04:45 07/14/22 04:30 07/14/22 04:15 07/14/22 04:00 07/14/22 03:45 07/14/22 03:30 07/14/22 04:00 80 07/14/22 03:30 80 07/14/22 03:15 07/14/22 03:00 07/14/22 02:30 07/14/22 02:15 07/14/22 02:00 07/14/22 01:45 07/14/22 01:30 07/14/22 01:00 07/14/22 00:45 07/14/22 00:30 07/14/22 00:15 07/14/22 00:00 07/13/22 23:45 07/13/22 23:30 07/13/22 23:15 07/13/22 23:00 07/13/22 22:45 07/13/22 22:30 07/13/22 22:15 07/13/22 22:00 07/14/22 00:00 07/14/22 00:00 80 07/13/22 23:55 50 07/13/22 21:45 07/13/22 22:44 07/13/22 22:00 Mechanical Vent 07/13/22 22:11 80 07/13/22 22:08 07/13/22 22:07 Mechanical Vent Lab & Micro Results (Past 24 Hours) No Data to Display Na 137 mmol/L (136-145) 07/14/22 K 4.7 mmol/L (3.5-5.1) 07/14/22 Cl 94 mmol/L (98-107) L 07/14/22 CO2 37 mmol/L (21-32) H 07/14/22 Anion Gap 6 (3-11) 07/14/22 BUN 19 mg/dl (6-23) 07/14/22 Creatinine 1.38 mg/dl (0.6-1.4) 07/14/22 Estimated GFR ( Amer) 67.2 ml/min 07/14/22 Estimated GFR (Non-Af Amer) 58.0 ml/min 07/14/22 BUN/Creatinine Ratio 13.8 (10-20) 07/14/22 Glu 147 mg/dl (70-99(Fasting)) H 07/14/22 Ca 8.7 mg/dl (8.6-10.3) 07/14/22 Phosphorus Level 1.2 mg/dl (2.5-4.9) L* 07/14/22 Mg 1.9 mg/dl (1.7-2.4) 07/14/22 04:55 Calcium Level 8.7 mg/dl (8.6-10.3) 07/14/22 04:55 Venous Blood pH 7.17 (7.36-7.41) L 07/13/22 18:35 Venous Blood Partial Pressure CO2 122 mmHg (38-50) H 07/13/22 1 8:35 Venous Blood Partial Pressure O2 74 mmHg 07/13/22 18:35 Venous Blood HCO3 45 mmol/L 07/13/22 18:35 Venous Blood Base Excess 10.9 mEq/L 07/13/22 18:35 Venous Blood Oxygen Saturation 91.1 % 07/13/22 18:35 Ponce Test Pass 07/14/22 03:12 Diagnostic Findings (Past 24 Hours) Chest X-Ray 07/13/22 15:12 XR chest 1V portable CLINICAL HISTORY: Sepsis TECHNIQUE: Single frontal radiograph of the chest was obtained. Comparison: Comparison is made to chest radiograph 02/10/2021 FINDINGS: Exam is limited by underpenetration. Cardiomegaly is noted. There is prominence and cephalization of the vasculature with Bernard B lines seen. Pleural effusions cannot be excluded. IMPRESSION: Cardiomegaly and moderate pulmonary edema. Exam is limited by underpenetration. Pleural effusions cannot be excluded. ACT 112: Negative or not required by law. Electronically signed by: Otto Bruner M.D. 07/13/2022 4:40 PM Chest X-Ray 07/13/22 19:05 XR chest 1V portable HISTORY: 52 years-old Male post intubation acute respiratory failure COMPARISON: 07/13/2022 at 4:18 PM TECHNIQUE: AP view of the chest FINDINGS: Cardiac silhouette is enlarged. Pulmonary vascular congestion with interstitial coarsening. Layering pleural effusions with left greater than right bibasilar consolidation. Endotracheal tube overlies the midline, 2.9 cm superior to the nixon. Bones appear grossly intact. IMPRESSION: 1. Endotracheal tube overlies the midline, 2.9 cm superior to the nixon. 2. Cardiomegaly with pulmonary edema 3. Layering pleural effusions with left greater than right bibasilar consolidation. 4. No pneumothorax. ACT 112: Negative or not required by law. The above report was generated using voice recognition software. It may contain grammatical, syntax or spelling errors. Electronically signed by: Jerrod Gale M.D. 07/14/2022 7:[address] 07/13/22 19:07 Exam(s): CT HEAD Without Contrast EXAM: CT Head Without Intravenous Contrast CLINICAL HISTORY: Reason for exam: hypertensive, hypercarbic encephalopathy. TECHNIQUE: Axial computed tomography images of the head/brain without intravenous contrast. CTDI is 57.46 mGy and DLP is 1010.38 mGy-cm. Automated exposure control was utilized for the study. A dose lowering technique was utilized adhering to the principles of ALARA. COMPARISON: No relevant prior studies available. FINDINGS: No acute intracranial hemorrhage. No midline shift or mass effect. The territorial jamison-white matter differentiation is maintained throughout. Age-related cerebral volume loss. Periventricular and subcortical white matter hypoattenuation, consistent with chronic microangiopathy. The visualized orbits appear grossly unremarkable. The calvarium is intact. Mild paranasal sinus mucosal thickening. IMPRESSION: No acute intracranial hemorrhage, midline shift, or mass effect. Electronically signed by: Rudy Dupont MD 07/13/22 20:26 PM Chest X-Ray 07/13/22 20:55 XR chest 1V portable HISTORY: 52 years-old Male s/p placement of central line and OGT placement acute respiratory failure COMPARISON: Chest radiograph 07/13/2022 TECHNIQUE: AP view of the chest FINDINGS: Cardiac silhouette is enlarged. Pulmonary vascular congestion with interstitial coarsening. Layering pleural effusions with bibasilar consolidation again noted. Endotracheal tube overlies the midline, 2.1 cm superior to the nixon. Status post placement of a right IJ central venous catheter distal tip in the expected location of the inferior SVC. Enteric tube has also been placed with distal tip extending inferiorly outside the [id number], likely within the stomach. Bones appear grossly intact. IMPRESSION: 1. Lines and tubes as above. No pneumothorax. 2. Cardiomegaly with pulmonary edema 3. Layering pleural effusions with bibasilar consolidation. ACT 112: Negative or not required by law. The above report was generated using voice recognition software. It may contain grammatical, syntax or spelling errors. Electronically signed by: Jerrod Gale M.D. 07/14/2022 9:07 AM Chest X-Ray 07/14/22 02:03 XR chest 1V portable CLINICAL HISTORY: evaluate ETT placement following patient movement TECHNIQUE: Single frontal radiograph of the chest was obtained. Comparison: Comparison is made to chest radiograph 07/13/2022 FINDINGS: Exam is limited by underpenetration. Endotracheal tube measures 26 mm from the nixon, similar to prior exam. Other lines and tubes are stable. Cardiomegaly is noted. Bibasilar airspace opacities are seen. Small bilateral pleural effusions are seen. IMPRESSION: 1. Lines and tubes are stable, endotracheal tube is in satisfactory appearance. 2. Small bilateral pleural effusions. Bibasilar airspace opacities are unchanged and may represent atelectasis, pneumonia, and/or aspiration. ACT 112: Negative or not required by law. Electronically signed by: Otto Bruner M.D. 07/14/2022 8:02 AM I & O Totals 24 Hours 07/13/22 07/14/22 07/15/22 06:59 06:59 06:59 Intake Total 919.200 / 919.200 100 / 100 Output Total 650 / 650 350 / 350 Balance 269.200 / 269.200 -250 / -250 Cumulative 07/13/22 15:02 thru 07/14/22 09:12 Intake Total 1019.200 Output Total 1000 Balance 19.200 RT Ventilator Mngmt (Last Documented) Ventilator Ordered Settings Ventilator Support Mode Assist Control 07/14/22 07:23 Respiratory Rate 24 07/14/22 08:16 Ventilator Tidal Volume 450 07/14/22 07:23 Setting Minute Ventilation 10 07/14/22 07:23 Positive End Expiratory 10 07/14/22 07:23 Pressure Fraction of Inspired Oxygen 70 07/14/22 08:16 Machine Comment pt was bumped up to 100% after 07/14/22 03:30 desatting, lowered fio2 based off abg Ventilator - PT Measurements Respiratory Rate 24 Exhaled Tidal Volume 450 Minute Ventilation 10 Peak Inspiratory Airway 38 Pressure Plateau Pressure 29.4 Respiratory Cycle Inspiratory: 1:1.5 Expiratory Ratio Inspiratory Phase Time 1.0 End-Tidal CO2 37 Static Lung Compliance 23.09 Dynamic Lung Compliance 16.07 Normal Static Lung Compliance 44.00 Patient Measurements Comment I time increased to 1.0. FiO2 decreased to 70% at this time. Rn made aware. Coding Level of Care Code 82703 CRITICAL CARE 1ST 30-74M Diagnoses Respiratory failure J96.01; J96.02; J96.02 Chronicity: acute Respiratory failure complication: hypoxia and hypercapnia Hypoxia R09.02 COPD (chronic obstructive pulmonary disease) J44.9 COPD type: unspecified COPD NAFLD (nonalcoholic fatty liver disease) K76.0 Type 2 diabetes mellitus with albuminuria E11.29; R80.9 Acute on chronic right-sided congestive heart failure I50.813 Severe obesity (BMI >= 40) E66.01 Chronic kidney disease N18.9 CARLITOS (obstructive sleep apnea) G47.33 (1) Respiratory failure Chronicity: acute Respiratory failure complication: hypoxia and hypercapnia Qualified Code(s): J96.01 - Acute respiratory failure with hypoxia; J96.02 - Acute respiratory failure with hypercapnia; J96.02 - Acute respiratory failure with hypercapnia (3) COPD (chronic obstructive pulmonary disease) COPD type: unspecified COPD Qualified Code(s): J44.9 - Chronic obstructive pulmonary disease, unspecified
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
[2022-07-14] MEDS: MULTI VIT W/MINERALS LIQUID 15 ML UDP PO SCH (10:14)
[2022-07-14] MEDS: methylPREDNISolone 60 MG in SYRINGE 0 ML IV SCH ×2 (10:14→18:01)
--- NOTE | 2022-07-14 10:47 | Electrocardiogram Report ---
Test Reason : Blood Pressure : / mmHG Vent. Rate : 100 BPM Atrial Rate : 100 BPM P-R Int : 170 ms QRS Dur : 070 ms QT Int : 344 ms P-R-T Axes : 037 -13 026 degrees QTc Int : 443 ms Poor data quality, interpretation may be adversely affected Normal sinus rhythm possible Inferior infarct , age undetermined Abnormal ECG When compared with ECG of 13-JUL-2022 15:08, Inferior infarct is now Present Confirmed by Al Moses ([id number]) on 07/14/2022 10:47:17 AM Referred By: Deya Caldwell Confirmed By:Randolph Moses
--- NOTE | 2022-07-14 10:57 | Electrocardiogram Report ---
Test Reason : Blood Pressure : / mmHG Vent. Rate : 067 BPM Atrial Rate : 067 BPM P-R Int : 152 ms QRS Dur : 090 ms QT Int : 468 ms P-R-T Axes : 031 -04 029 degrees QTc Int : 494 ms Normal sinus rhythm Poor R wave progression, consider anterior CO vs. lead placement vs. LVH Abnormal ECG When compared with ECG of 13-JUL-2022 18:22, (unconfirmed) Vent. rate has decreased BY 33 BPM Confirmed by Al Mosse ([id number]) on 07/14/2022 10:57:07 AM Referred By: Deya Caldwell Confirmed By:Randolph Moses
--- NOTE | 2022-07-14 14:47 | Procedure Note ---
Procedure Note Date of Service July 14, 2022 Note Procedure: Flexible Bronchoscopy Attending/Dice Dealer: Dr. De La Vega, Sadi Rodriguez PA-C Anesthetic/Sedation: Propofol, Fentanyl Indication: Respiratory Failure, Arrest, pneumonia Consent was signed and placed on the chart prior to procedure. Indication, risks, and benefits were explained at length. A time-out was completed verifying correct patient, procedure, site, positioning, and implant(s) or special equipment if applicable. Findings: Trachea - Normal to inspection. Main Constanza - Slight areas of blood from suspected mild trauma. LEFT Mainstem Bronchus: Tissues normal to inspection. Slight mucopurulent material noted in the the JUSTIN/LLLs. RIGHT Mainstem Bronchus: With moderate cream colored mucopurulent material noted. BAL of the RLL obtained. Specimens: BAL - 30 mL x 1, RLL Lobe Complications: NONE Impression: Relatively normal tissue inspection with moderate amounts of mucopurulent material throughout. Plan: Sent BAL for Culture & Sensitivities, Gram Stain, AFB Coding CPT Codes Pulmonary/Thoracic - Pulmonary and Thoracic: 16323 Bronchoscopy, clear airways ([id number]) [facility] Procedure Codes (Charges) Pulmonary/Thoracic Procedure 1: Pulmonary and Thoracic: 10825 Bronchoscopy, clear airways
[2022-07-14] MEDS ORDERED: levoFLOXacin/D5W 750 MG/150 ML BAG IV SCH (15:00)
[2022-07-14] MEDS ORDERED: Nursing to Pharmacy Communication SCH (16:30)
[2022-07-14] MEDS: fentaNYL citrate 2,500 MCG/250 ML BAG IV SCH (17:23)
[2022-07-14] MEDS ORDERED: KETAMINE HCL INJ 50 MG/ML 10 ML VIAL IV ONE (18:17)
[2022-07-14 18:55] LABS: Magnesium 1.8 mg/dl (1.7-2.4); Phosphorus 3.8 mg/dl (2.5-4.9); Potassium 4.1 mmol/L (3.5-5.1)
[2022-07-14 19:03] LABS: Fluid Mono/Macrophage 17 %; Lymphocyte Body Fluid Man 0 %; Neutrophil Body Fluid Man 83 %
[2022-07-14] MEDS: ATORVASTATIN 40 MG TAB PO SCH (21:05)
[2022-07-14] MEDS: LANTUS PER UNIT CHARGE SQ SCH (23:41)
[2022-07-15] MEDS: propofoL 1,000 MG/100 ML VIAL IV SCH ×14 (00:41→22:39)
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
[2022-07-15] MEDS: methylPREDNISolone 60 MG in SYRINGE 0 ML IV SCH ×3 (01:07→16:09)
[2022-07-15 04:11] LABS: iSTAT Allen Test Pass; iSTAT Art Bld Gas pCO2 Correct 46 mmHg (35-46); iSTAT Art Bld Gas pH Corrected 7.525 (7.35-7.45); iSTAT Arterial Blood Gas HCO3 38 meg/L (19-24); iSTAT Arterial Blood Gas pCO2 47 mmHg (35-46); iSTAT Arterial Blood Gas pH 7.52 (7.35-7.45); iSTAT Arterial Blood Gas pO2 62 mmHg (80-95); iSTAT Arterial Blood Gas pO2 C 60; iSTAT Carbon Dioxide > 40 mmol/L (24-31); iSTAT FiO2 80 %; iSTAT Hematocrit 40 % (42-52); iSTAT Hemoglobin 13.6 g/dl (14.0-18.0); iSTAT Site L Radial; iSTAT Sodium 136 mmol/L (135-144)
[2022-07-15] MEDS: LEVOTHYROXINE SODIUM 200 MCG TABLET PO SCH (05:44)
[2022-07-15 05:47] LABS: Hematocrit (blood only) 39.8 % (42.0-52.0); Hemoglobin 12.9 g/dl (14.0-18.0); Immature Granulocytes # (auto) 0.06 K/uL (0.01-0.20); Immature Granulocytes % (auto) 0.5 %; Lymphocytes # (auto) 0.71 K/uL (1.2-3.4); Lymphocytes % (auto) 6.3 %; Mean Corpuscular Hemoglobin 28.5 pg (25.0-34.0); Mean Corpuscular Hgb Conc 32.4 g/dL (32.0-36.0); Mean Corpuscular Volume 87.9 fL (80.0-100.0); Mean Platelet Volume 10.4 fL (9.4-12.4); Monocytes # (auto) 0.49 K/uL (0.11-0.59); Monocytes % (auto) 4.3 %; Neutrophils # (auto) 10.09 K/uL (1.40-6.50); Neutrophils % (auto) 88.9 %; Platelet Count 278 K/uL (130-400); RDW Coefficient of Variation 16.2 % (11.5-14.5); RDW Standard Deviation 50.4 fL (36.4-46.3); Red Blood Count 4.53 M/uL (4.70-6.10); White Blood Count 11.35 K/ul (4.8-10.8)
[2022-07-15 05:54] LABS: Albumin Level 3.3 gm/dl (3.4-5.0); BUN Creatinine Ratio 23.6 (10-20); Bilirubin Direct 0.2 mg/dl (0-0.2); Bilirubin,Total 0.6 mg/dl (0.2-1.0); Calcium 8.8 mg/dl (8.6-10.3); Creatinine Clr Calc Pharmacy 99.9 ml/min; Est GFR (African American) 74.3 ml/min; Est GFR (Non-African American) 64.1 ml/min; Magnesium 1.9 mg/dl (1.7-2.4); Phosphorus 4.5 mg/dl (2.5-4.9); Total Protein 6.8 gm/dl (6.0-8.3)
[2022-07-15] MEDS: ICU ELECTROLYTE REPLACEMENT PROTOCOL SCH ×2 (06:08→12:17)
[2022-07-15] MEDS: INSULIN ASPART PER UNIT CHARGE SC SCH ×4 (06:09→23:47)
[2022-07-15] MEDS: MAGNESIUM SULFATE / D5W 1 GM/100 ML BAG IV SCH ×2 (06:32→08:10)
[2022-07-15] MEDS: ENOXAPARIN INJ 40 MG/0.4 ML SYR SQ SCH ×2 (08:10→20:36)
[2022-07-15] MEDS: FLUTICASONE/VILANTEROL 100/25MCG 14 PUFFS/INHALER INH SCH (08:10)
[2022-07-15] MEDS: CHOLECALCIFEROL 400 UNITS 10 MCG TAB PO SCH (08:10)
[2022-07-15] MEDS: MULTI VIT W/MINERALS LIQUID 15 ML UDP PO SCH (08:11)
[2022-07-15] MEDS: NYSTATIN POWDER 15GM BTL EXT SCH ×3 (08:11→20:37)
[2022-07-15] MEDS ORDERED: PANTOprazole 40 MG TAB PO SCH (09:00)
--- NOTE | 2022-07-15 09:00 | Critical Care Progress Note ---
Date of Service July 15, 2022 Assessment & Plan (1) Respiratory failure: (2) Hypoxia: (3) COPD (chronic obstructive pulmonary disease): (4) NAFLD (nonalcoholic fatty liver disease): (5) Type 2 diabetes mellitus with albuminuria: (6) Acute on chronic right-sided congestive heart failure: (7) Severe obesity (BMI >= 40): (8) Chronic kidney disease: (9) CARLITOS (obstructive sleep apnea): Plan Reason Critically Ill: 52 YOM presented with complaints of increased dyspnea, was emergently intubated in EMD for failure on BiPAP in the setting of hypercarbic and hypoxic respiratory failure in a morbidly obese male. WIll admit to ICU continue diuresing as well as continued steroid and nebulizers for his COPD Neuro - Metabolic encephalopathy, Sedation for mechanical ventilation CAM ICU: SRAVANTHI - Encephalopathy secondary to hypercarbia and hypoxia -Transition to Precedex to facilitate awakening and mechanical ventilation Cardiac - HFpEF acute on chronic exacerbation - pulmonary edema on CXR-continue Lasix -Goal to be net negative Respiratory - COPD exacerbation, hypercarbic respiratory failure, hypoxic respiratory failure requiring intubation and mechanical ventilation, CARLITOS, obesity hypoventilation syndrome - ABG with notable hypercarbia, body habitus makes physical exam very limited to non-existent to appreciate wheezes or air movement - COVID/FLU/RSV negative- -I think PE is unlikely -Continue steroids -60+ pack year smoking history, discontinued approximately 9 years ago -Patient's oxygen requirements have decreased but he is certainly not ready for a trial of extubation at this time GI -start trickle tube feeds for gut integrity RENAL/LYTES - CKD - 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 - No acute needs - Paulino to gravity ENDO - DMII, Hypothyroidism - ICU hyperglycemic protocol HEME - No acute needs - mild luekocytosis likely secondary to stress - follow clinical course ID -1 out of 2 blood cultures demonstrating staphylococcal species Converted from Levaquin to Rocephin -Documented reaction was rash we have a secure airway I feel the benefits outweigh the risks of transitioning to this medication Bronchoscopy report staphylococcal species LINES/IV ACCESS - CVL, PIV, Paulino, ETT, OGT Continue use of these lines DVT PROPHYLAXIS - SCDS, Lovenox 40mg SUBQ q12 DISPO: ICU while intubated I updated the patient's and son who are present at bedside. I have personally spent 40 minutes of critical care time in the direct management of this patient. This is a life/limb threatening event. This includes time spent evaluating patient, direct bedside care, chart review, placing orders, interpretation of diagnostic studies, discussion with consultants, pat ient, and family members, as well as other required patient management activities. This time is exclusive of all separately billable procedures, separate from and in addition to any other critical care service time. Admission and Anticipated Discharge Date Admission Date: July 13, 2022 Subjective No overnight events Physical Exam Physical Exam: General: Sedated. nontoxic. Skin: Warm, dry, Head: Atraumatic Ears, nose, mouth and throat: airway obscured by endotracheal tube Cardiovascular: Normal peripheral perfusion Respiratory: Ventilator settings reviewed Gastrointestinal: Non distended Musculoskeletal: No deformity Results & Data Results & Data Vital Signs (Past 12 Hours) Vital Signs Temp Pulse Resp BP Pulse Ox FiO2 07/15/22 07:40 73 21 90 60 07/15/22 06:31 36.3 C L 60 18 94 07/15/22 06:31 123/63 07/15/22 06:30 36.3 C L 60 20 94 07/15/22 06:15 36.3 C L 61 20 94 07/15/22 06:01 129/68 07/15/22 06:01 36.3 C L 62 18 94 07/15/22 06:00 36.3 C L 61 20 94 07/15/22 05:45 36.3 C L 61 20 95 07/15/22 05:31 36.3 C L 62 17 94 07/15/22 05:31 120/71 07/15/22 05:30 36.3 C L 67 16 95 07/15/22 05:15 36.3 C L 59 L 17 94 07/15/22 05:01 36.4 C L 58 L 20 94 07/15/22 05:01 123/62 07/15/22 05:00 36.4 C L 61 20 94 07/15/22 04:45 36.3 C L 59 L 20 94 07/15/22 04:31 36.3 C L 60 20 94 07/15/22 04:31 130/68 07/15/22 04:30 36.3 C L 60 20 94 07/15/22 04:15 36.3 C L 61 20 93 07/15/22 04:13 65 07/15/22 04:01 36.4 C L 61 20 92 07/15/22 04:01 129/70 07/15/22 04:00 36.4 C L 63 20 92 07/15/22 03:45 36.4 C L 56 L 21 92 07/15/22 03:31 122/63 07/15/22 03:31 36.4 C L 56 L 24 93 07/15/22 03:30 36.4 C L 56 L 24 93 07/15/22 03:15 36.4 C L 62 24 92 07/15/22 03:01 36.3 C L 58 L 24 92 07/15/22 03:01 124/68 07/15/22 03:00 36.3 C L 59 L 24 92 07/15/22 02:45 36.3 C L 61 24 93 07/15/22 02:31 36.3 C L 59 L 21 93 07/15/22 02:31 127/67 07/15/22 02:30 36.3 C L 59 L 21 93 07/15/22 02:15 36.3 C L 61 24 93 07/15/22 02:01 126/67 07/15/22 02:01 36.3 C L 60 21 92 07/15/22 02:00 36.3 C L 60 21 92 07/15/22 01:45 36.4 C L 61 25 H 93 07/15/22 01:31 123/63 07/15/22 01:31 36.4 C L 60 24 93 07/15/22 01:30 36.4 C L 61 24 92 07/15/22 01:15 36.4 C L 63 24 93 07/15/22 01:01 127/64 07/15/22 01:01 36.4 C L 63 21 93 07/15/22 01:00 36.4 C L 64 24 93 07/15/22 04:08 20 80 07/15/22 04:00 80 07/15/22 02:25 60 24 94 80 07/15/22 00:00 80 07/15/22 00:45 36.4 C L 64 24 93 07/15/22 00:31 36.4 C L 63 24 92 07/15/22 00:31 128/64 07/15/22 00:30 36.4 C L 64 24 92 07/15/22 00:15 36.4 C L 65 24 92 07/15/22 00:01 36.4 C L 65 24 92 07/15/22 00:01 119/65 07/15/22 00:00 36.4 C L 66 26 H 92 07/14/22 23:45 36.4 C L 69 26 H 93 07/14/22 23:30 36.4 C L 70 24 92 07/14/22 23:15 36.3 C L 74 24 92 07/14/22 23:04 150/89 H 07/14/22 23:04 35.7 C L 79 24 93 07/14/22 23:00 34.9 C L 81 26 H 91 07/14/22 22:45 36.5 C 70 24 92 07/14/22 22:31 36.8 C 65 21 92 07/14/22 22:31 121/65 07/14/22 22:30 36.8 C 65 17 92 07/14/22 22:15 36.8 C 66 24 92 07/14/22 22:01 36.8 C 64 21 92 07/14/22 22:01 126/68 07/14/22 22:00 36.8 C 65 24 92 07/14/22 21:45 36.8 C 67 24 93 07/14/22 21:31 36.8 C 66 24 92 07/14/22 21:31 128/70 07/14/22 21:30 36.8 C 66 24 92 07/14/22 21:15 36.8 C 65 21 93 07/14/22 21:01 125/70 07/14/22 21:01 36.8 C 66 21 93 07/14/22 22:44 65 24 92 80 Critical Care Results & Data Vital Signs (Past 12 Hours) Vital Signs Temp Pulse Resp BP Pulse Ox FiO2 07/15/22 07:40 73 21 90 60 07/15/22 06:31 36.3 C L 60 18 94 07/15/22 06:31 123/63 07/15/22 06:30 36.3 C L 60 20 94 07/15/22 06:15 36.3 C L 61 20 94 07/15/22 06:01 129/68 07/15/22 06:01 36.3 C L 62 18 94 07/15/22 06:00 36.3 C L 61 20 94 07/15/22 05:45 36.3 C L 61 20 95 07/15/22 05:31 36.3 C L 62 17 94 07/15/22 05:31 120/71 07/15/22 05:30 36.3 C L 67 16 95 07/15/22 05:15 36.3 C L 59 L 17 94 07/15/22 05:01 36.4 C L 58 L 20 94 07/15/22 05:01 123/62 07/15/22 05:00 36.4 C L 61 20 94 07/15/22 04:45 36.3 C L 59 L 20 94 07/15/22 04:31 36.3 C L 60 20 94 07/15/22 04:31 130/68 07/15/22 04:30 36.3 C L 60 20 94 07/15/22 04:15 36.3 C L 61 20 93 07/15/22 04:13 65 07/15/22 04:01 36.4 C L 61 20 92 07/15/22 04:01 129/70 07/15/22 04:00 36.4 C L 63 20 92 07/15/22 03:45 36.4 C L 56 L 21 92 07/15/22 03:31 122/63 07/15/22 03:31 36.4 C L 56 L 24 93 07/15/22 03:30 36.4 C L 56 L 24 93 07/15/22 03:15 36.4 C L 62 24 92 07/15/22 03:01 36.3 C L 58 L 24 92 07/15/22 03:01 124/68 07/15/22 03:00 36.3 C L 59 L 24 92 07/15/22 02:45 36.3 C L 61 24 93 07/15/22 02:31 36.3 C L 59 L 21 93 07/15/22 02:31 127/67 07/15/22 02:30 36.3 C L 59 L 21 93 07/15/22 02:15 36.3 C L 61 24 93 07/15/22 02:01 126/67 07/15/22 02:01 36.3 C L 60 21 92 07/15/22 02:00 36.3 C L 60 21 92 07/15/22 01:45 36.4 C L 61 25 H 93 07/15/22 01:31 123/63 07/15/22 01:31 36.4 C L 60 24 93 07/15/22 01:30 36.4 C L 61 24 92 07/15/22 01:15 36.4 C L 63 24 93 07/15/22 01:01 127/64 07/15/22 01:01 36.4 C L 63 21 93 07/15/22 01:00 36.4 C L 64 24 93 07/15/22 04:08 20 80 07/15/22 04:00 80 07/15/22 02:25 60 24 94 80 07/15/22 00:00 80 07/15/22 00:45 36.4 C L 64 24 93 07/15/22 00:31 36.4 C L 63 24 92 07/15/22 00:31 128/64 07/15/22 00:30 36.4 C L 64 24 92 07/15/22 00:15 36.4 C L 65 24 92 07/15/22 00:01 36.4 C L 65 24 92 07/15/22 00:01 119/65 07/15/22 00:00 36.4 C L 66 26 H 92 07/14/22 23:45 36.4 C L 69 26 H 93 07/14/22 23:30 36.4 C L 70 24 92 07/14/22 23:15 36.3 C L 74 24 92 07/14/22 23:04 150/89 H 07/14/22 23:04 35.7 C L 79 24 93 07/14/22 23:00 34.9 C L 81 26 H 91 07/14/22 22:45 36.5 C 70 24 92 07/14/22 22:31 36.8 C 65 21 92 07/14/22 22:31 121/65 07/14/22 22:30 36.8 C 65 17 92 07/14/22 22:15 36.8 C 66 24 92 07/14/22 22:01 36.8 C 64 21 92 07/14/22 22:01 126/68 07/14/22 22:00 36.8 C 65 24 92 07/14/22 21:45 36.8 C 67 24 93 07/14/22 21:31 36.8 C 66 24 92 07/14/22 21:31 128/70 07/14/22 21:30 36.8 C 66 24 92 07/14/22 21:15 36.8 C 65 21 93 07/14/22 22:44 65 24 92 80 Lab & Micro Results (Past 24 Hours) RBC 4.53 M/uL (4.70-6.10) L 07/15/22 WBC 11.35 K/ul (4.8-10.8) H 07/15/22 Hgb 12.9 g/dl (14.0-18.0) L 07/15/22 Hct 39.8 % (42.0-52.0) L 07/15/22 MCV 87.9 fL (80.0-100.0) 07/15/22 MCH 28.5 pg (25.0-34.0) 07/15/22 MCHC 32.4 g/dL (32.0-36.0) 07/15/22 RDW Standard Deviation 50.4 fL (36.4-46.3) H 07/15/22 RDW Coefficient of Variation 16.2 % (11.5-14.5) H 07/15/22 Plt Count 278 K/uL (130-400) 07/15/22 MPV 10.4 fL (9.4-12.4) 07/15/22 Neutrophils (%) (Auto) 88.9 % 07/15/22 Lymphocytes (%) (Auto) 6.3 % 07/15/22 Monocytes # (Auto) 0.49 K/uL (0.11-0.59) 07/15/22 Eosinophils # (Auto) 0.00 K/uL (0-0.50) 07/15/22 Immature Granulocyte % (Auto) 0.5 % 07/15/22 Neutrophils # (Auto) 10.09 K/uL (1.40-6.50) H 07/15/22 Lymphocytes # (Auto) 0.71 K/uL (1.2-3.4) L 07/15/22 Monocytes # (Auto) 0.49 K/uL (0.11-0.59) 07/15/22 Eosinophils # (Auto) 0.00 K/uL (0-0.50) 07/15/22 Basophils # (Auto) 0.00 K/uL (0-0.2) 07/15/22 Immature Granulocyte # (Auto) 0.06 K/uL (0.01-0.20) 3 Na 138 mmol/L (136-145) 07/15/22 K 4.0 mmol/L (3.5-5.1) 07/15/22 Cl 92 mmol/L (98-107) L 07/15/22 CO2 35 mmol/L (21-32) H 07/15/22 Anion Gap 11 (3-11) 07/15/22 BUN 30 mg/dl (6-23) H 07/15/22 Creatinine 1.27 mg/dl (0.6-1.4) 07/15/22 Estimated GFR ( Amer) 74.3 ml/min 07/15/22 Estimated GFR (Non-Af Amer) 64.1 ml/min 07/15/22 BUN/Creatinine Ratio 23.6 (10-20) H 07/15/22 Glu 160 mg/dl (70-99(Fasting)) H 07/15/22 Ca 8.8 mg/dl (8.6-10.3) 07/15/22 Phosphorus Level 4.5 mg/dl (2.5-4.9) 07/15/22 Total Bilirubin 0.6 mg/dl (0.2-1.0) 07/15/22 Direct Bilirubin 0.2 mg/dl (0-0.2) 07/15/22 AST 32 U/L (13-39) 07/15/22 ALT 42 U/L (7-52) 07/15/22 Alkaline Phosphatase 67 U/L (34-104) 07/15/22 TP 6.8 gm/dl (6.0-8.3) 07/15/22 Albumin 3.3 gm/dl (3.4-5.0) L 07/15/22 Mg 1.9 mg/dl (1.7-2.4) 07/15/22 05:02 Calcium Level 8.8 mg/dl (8.6-10.3) 07/15/22 05:02 Ionized Calcium 1.03 mmol/L (1.12-1.32) L 07/15/22 05:02 Ponce Test Pass 07/15/22 03:57 Microbiology 07/13/22 21:04 Aerobic Blood Culture - Preliminary Blood No growth in Aerobic bottle after 24 hours. Anaerobic Blood Culture - Preliminary No growth in Anaerobic bottle after 24 hours. 07/14/22 14:25 Gram Stain - Final Bronch Wash,Right Lower Lobe 07/13/22 16:05 Aerobic Blood Culture - Preliminary Blood No growth in Aerobic bottle after 24 hours. Anaerobic Blood Culture - Preliminary No growth in Anaerobic bottle after 24 hours. 07/13/22 15:21 Aerobic Blood Culture - Preliminary Blood No growth in Aerobic bottle after 24 hours. Anaerobic Blood Culture - Preliminary No growth in Anaerobic bottle after 24 hours. Diagnostic Findings (Past 24 Hours) Chest X-Ray 07/13/22 20:55 XR chest 1V portable HISTORY: 52 years-old Male s/p placement of central line and OGT placement acute respiratory failure COMPARISON: Chest radiograph 07/13/2022 TECHNIQUE: AP view of the chest FINDINGS: Cardiac silhouette is enlarged. Pulmonary vascular congestion with interstitial coarsening. Layering pleural effusions with bibasilar consolidation again noted. Endotracheal tube overlies the midline, 2.1 cm superior to the nixon. Status post placement of a right IJ central venous catheter distal tip in the expected location of the inferior SVC. Enteric tube has also been placed with distal tip extending inferiorly outside the [id number], likely within the stomach. Bones appear grossly intact. IMPRESSION: 1. Lines and tubes as above. No pneumothorax. 2. Cardiomegaly with pulmonary edema 3. Layering pleural effusions with bibasilar consolidation. ACT 112: Negative or not required by law. The above report was generated using voice recognition software. It may contain grammatical, syntax or spelling errors. Electronically signed by: Jerrod Gale M.D. 07/14/2022 9:07 AM I & O Totals 24 Hours 07/14/22 07/15/22 07/16/22 06:59 06:59 06:59 Intake Total 919.200 / 541.823 3940.345 / 1888.345 131.042 / 131.042 Output Total 650 / 650 1505 / 1505 Balance 269.200 / 269.200 383.345 / 383.345 131.042 / 131.042 Cumulative 07/13/22 15:02 thru 07/15/22 08:10 Intake Total 2938.587 Output Total 2155 Balance 783.587 RT Ventilator Mngmt (Last Documented) Ventilator Ordered Settings Ventilator Support Mode Assist Control 07/15/22 07:40 Respiratory Rate 21 07/15/22 07:40 Ventilator Tidal Volume 450 07/15/22 07:40 Setting Minute Ventilation 9.2 07/15/22 07:40 Positive End Expiratory 10 07/15/22 07:40 Pressure Fraction of Inspired Oxygen 60 07/15/22 07:40 Peak Inspiratory Flow 36 07/15/22 07:40 Machine Comment post ABG changes 07/15/22 04:08 Ventilator - PT Measurements Respiratory Rate 21 Exhaled Tidal Volume 450 Minute Ventilation 9.2 Peak Inspiratory Airway 42 Pressure Plateau Pressure 30.2 Respiratory Cycle Inspiratory: 1:2.0 Expiratory Ratio Inspiratory Phase Time 1.0 End-Tidal CO2 44 Static Lung Compliance 22.28 Dynamic Lung Compliance 14.06 Normal Static Lung Compliance 43.00 Patient Measurements Comment FiO2 decreased tp 85% sats 95% at this time, will continue to titrate back down as patient tolerates. Coding Level of Care Code 37321 CRITICAL CARE 1ST 30-74M Diagnoses Respiratory failure J96.01; J96.02; J96.02 Chronicity: acute Respiratory failure complication: hypoxia and hypercapnia Hypoxia R09.02 COPD (chronic obstructive pulmonary disease) J44.9 COPD type: unspecified COPD NAFLD (nonalcoholic fatty liver disease) K76.0 Type 2 diabetes mellitus with albuminuria E11.29; R80.9 Acute on chronic right-sided congestive heart failure I50.813 Severe obesity (BMI >= 40) E66.01 Chronic kidney disease N18.9 CARLITOS (obstructive sleep apnea) G47.33 (1) Respiratory failure Chronicity: acute Respiratory failure complication: hypoxia and hypercapnia Qualified Code(s): J96.01 - Acute respiratory failure with hypoxia; J96.02 - Acute respiratory failure with hypercapnia; J96.02 - Acute respiratory failure with hypercapnia (3) COPD (chronic obstructive pulmonary disease) COPD type: unspecified COPD Qualified Code(s): J44.9 - Chronic obstructive pulmonary disease, unspecified
[2022-07-15 09:43] LABS: A calco-baum cmplx NotReported Not Detected (NotDetected); Bact fragilis Not Reported Not Detected (NotDetected); C auris Not Reported Not Detected (NotDetected); Calbicans Not Reported Not Detected (NotDetected); Candida glabrata Not Reported Not Detected (NotDetected); Candida krusei Not Reported Not Detected (NotDetected); Cneoformans/gatti Not Reported Not Detected (NotDetected); Cparapsilosis Not Reported Not Detected (NotDetected); Ctropicalis Not Reported Not Detected (NotDetected); E cloacae compx Not Reported Not Detected (NotDetected); Efaecalis Not Reported Not Detected (NotDetected); Efaecium Not Reported Not Detected (NotDetected); Enterobacterales Not Reported Not Detected (NotDetected); Escherichia coli Not Reported Not Detected (NotDetected); H influenzae Not Reported Not Detected (NotDetected); K aerogenes Not Reported Not Detected (NotDetected); Koxytoca Not Reported Not Detected (NotDetected); Kpneumoniae grp Not Reported Not Detected (NotDetected); Lmonocyt Not Reported Not Detected (NotDetected); N meningitidis Not Reported Not Detected (NotDetected); P aeruginosa Not Reported Not Detected (NotDetected); Proteus spp Not Reported Not Detected (NotDetected); Salmonella spp Not Reported Not Detected (NotDetected); Smarcescens Not Reported Not Detected (NotDetected); Staph lugdunensis Not Reported Not Detected (NotDetected); Staphaureus Not Reported Not Detected (NotDetected); Staphepi Not Reported Not Detected (NotDetected); Staphylococcus spp. DETECTED (NotDetected); Stenmaltophilia Not Reported Not Detected (NotDetected); Strep agal(GrpB) Not Reported Not Detected (NotDetected); Strep pneum Not Reported Not Detected (NotDetected); Strep pyog (GrpA) Not Reported Not Detected (NotDetected); Strep spp Not Reported Not Detected (NotDetected)
[2022-07-15 09:52] LABS: Staph spp. Not Reported DETECTED (NotDetected)
[2022-07-15] MEDS ORDERED: STAT IV Infusion **Titration per Protocol STA (10:00)
[2022-07-15] MEDS ORDERED: CHLOROTHIAZIDE SODIUM 500 MG in DEXTROSE 5% 50 ML IV ONE (10:30)
--- NOTE | 2022-07-15 10:43 | Cardiology Progress Note ---
Date of Service July 15, 2022 Assessment & Plan (1) Acute on chronic right-sided congestive heart failure: (2) Acute on chronic respiratory failure with hypoxia and hypercapnia: (3) Solitary kidney, acquired: (4) Severe obesity (BMI >= 40): (5) Chronic kidney disease: (6) CARLITOS (obstructive sleep apnea): Plan Continue IV diuresis with furosemide 40 mg BID. Resume spironolactone when able. Maintain electrolytes. Continue beta-treva and statin. Admission and Anticipated Discharge Date Admission Date: July 13, 2022 Supervising Physician Co-Signing Physician Notes Patient seen and examined. Fluid balance recorded as positive. Significant edema on exam. Patient intubated and sedated. No family present at bedside. PE: VSS. GEN: NAD, AAO x3. Heart regular rhythm, normal S1-S2. No murmur. Lungs: Clear breath sounds bilaterally. No rales, rhonchi, or wheeze. Extremities: 2+ b/l pitting edema to the waist. A/P: Agree with above PA-C history, physical exam, assessment and plan. Patient remains significantly edematous on examination. Continue IV diuretic therapy. Consider resuming spironolactone pending clinical course. Patient receiving both loop diuretic therapy and chlorothiazide IV. Monitored fluid balance, electrolytes, and GFR daily. Continue beta-treva and statin therapy. Subjective Patient seen and examined. Chart, medications, and telemetry review. Patient sedated, mechanically ventilated. No family at bedside. Telemetry benign, maintaining sinus throughout, no arrhythmias. Resting echocardiography on 07/14/2022 with normal to hyperdynamic LV systolic function, EF 65-0%, with moderate concentric LVH, moderately dilated RV with mildly reduced RV systolic function. Valves poorly visualized. Review of Systems Review of Systems: Complete review of systems unable to be obtained Physical Exam Physical Exam: General: Sedated. Mechanically ventilated. Right IJ line. Paulino catheter. Obese. HENT: Normocephalic. Heart: RRR, 66 bpm. No murmur. Abdomen: Protuberant. +BS. Somewhat firm, distended. Extremities: 1+ edema Results & Data Vital Signs (Past 12 Hours) Vital Signs Temp Pulse Resp BP Pulse Ox FiO2 07/15/22 07:40 73 21 90 60 07/15/22 06:31 36.3 C L 60 18 94 07/15/22 06:31 123/63 07/15/22 06:30 36.3 C L 60 20 94 07/15/22 06:15 36.3 C L 61 20 94 07/15/22 06:01 129/68 07/15/22 06:01 36.3 C L 62 18 94 07/15/22 06:00 36.3 C L 61 20 94 07/15/22 05:45 36.3 C L 61 20 95 07/15/22 05:31 36.3 C L 62 17 94 07/15/22 05:31 120/71 07/15/22 05:30 36.3 C L 67 16 95 07/15/22 05:15 36.3 C L 59 L 17 94 07/15/22 05:01 36.4 C L 58 L 20 94 07/15/22 05:01 123/62 07/15/22 05:00 36.4 C L 61 20 94 07/15/22 04:45 36.3 C L 59 L 20 94 07/15/22 04:31 36.3 C L 60 20 94 07/15/22 04:31 130/68 07/15/22 04:30 36.3 C L 60 20 94 07/15/22 04:15 36.3 C L 61 20 93 07/15/22 04:13 65 07/15/22 04:01 36.4 C L 61 20 92 07/15/22 04:01 129/70 07/15/22 04:00 36.4 C L 63 20 92 07/15/22 03:45 36.4 C L 56 L 21 92 07/15/22 03:31 122/63 07/15/22 03:31 36.4 C L 56 L 24 93 07/15/22 03:30 36.4 C L 56 L 24 93 07/15/22 03:15 36.4 C L 62 24 92 07/15/22 03:01 36.3 C L 58 L 24 92 07/15/22 03:01 124/68 07/15/22 03:00 36.3 C L 59 L 24 92 07/15/22 02:45 36.3 C L 61 24 93 07/15/22 02:31 36.3 C L 59 L 21 93 04/19/23 02:31 127/67 07/15/22 02:30 36.3 C L 59 L 21 93 07/15/22 02:15 36.3 C L 61 24 93 07/15/22 02:01 126/67 07/15/22 02:01 36.3 C L 60 21 92 07/15/22 02:00 36.3 C L 60 21 92 07/15/22 01:45 36.4 C L 61 25 H 93 07/15/22 01:31 123/63 07/15/22 01:31 36.4 C L 60 24 93 07/15/22 01:30 36.4 C L 61 24 92 07/15/22 01:15 36.4 C L 63 24 93 07/15/22 01:01 127/64 07/15/22 01:01 36.4 C L 63 21 93 07/15/22 01:00 36.4 C L 64 24 93 07/15/22 04:08 20 80 07/15/22 04:00 80 07/15/22 02:25 60 24 94 80 07/15/22 00:00 80 07/15/22 00:45 36.4 C L 64 24 93 07/15/22 00:31 36.4 C L 63 24 92 07/15/22 00:31 128/64 07/15/22 00:30 36.4 C L 64 24 92 07/15/22 00:15 36.4 C L 65 24 92 07/15/22 00:01 36.4 C L 65 24 92 07/15/22 00:01 119/65 07/15/22 00:00 36.4 C L 66 26 H 92 07/14/22 23:45 36.4 C L 69 26 H 93 07/14/22 23:30 36.4 C L 70 24 92 07/14/22 23:15 36.3 C L 74 24 92 07/14/22 23:04 150/89 H 07/14/22 23:04 35.7 C L 79 24 93 07/14/22 23:00 34.9 C L 81 26 H 91 07/14/22 22:45 36.5 C 70 24 92 07/14/22 22:44 65 24 92 80 Laboratory Results Cardiac Enzymes 07/15/22 Range/Units 05:02 AST 32 (13-39) U/L CBC 07/15/22 Range/Units 05:02 WBC 11.35 H (4.8-10.8) K/ul RBC 4.53 L (4.70-6.10) M/uL Hgb 12.9 L (14.0-18.0) g/dl Hct 39.8 L (42.0-52.0) % Plt Count 278 (130-400) K/uL Neut # (Auto) 10.09 H (1.40-6.50) K/uL Lymph # (Auto) 0.71 L (1.2-3.4) K/uL [place] # (Auto) 0.49 (0.11-0.59) K/uL Eos # (Auto) 0.00 (0-0.50) K/uL Baso # (Auto) 0.00 (0-0.2) K/uL Comprehensive Metabolic Panel 07/14/22 07/15/22 Range/Units 17:38 05:02 Sodium 138 (136-145) mmol/L Potassium 4.1 4.0 (3.5-5.1) mmol/L Chloride 92 L (98-107) mmol/L Carbon Dioxide 35 H (21-32) mmol/L BUN 30 H (6-23) mg/dl Creatinine 1.27 (0.6-1.4) mg/dl Glucose 160 H (70-99(Fasting)) mg/dl Calcium 8.8 (8.6-10.3) mg/dl Direct Bilirubin 0.2 (0-0.2) mg/dl AST 32 (13-39) U/L ALT 42 (7-52) U/L Alkaline Phosphatase 67 (34-104) U/L Total Protein 6.8 (6.0-8.3) gm/dl Albumin 3.3 L (3.4-5.0) gm/dl Intake and Output 07/14/22 07/15/22 07/15/22 22:59 06:59 14:59 Intake Total 641.17 / 1888.345 437.175 / 1888.345 131.042 / 131.042 Output Total 645 / 1505 300 / 1505 Balance -3.83 / 383.345 137.175 / 383.345 131.042 / 131.042 Intake: IV 641.17 / 1888.345 437.175 / 1887.345 131.042 / 131.042 Magnesium Sulfate / D5w 1 gm In 81.667 / 81.667 100 ml @ 50 mls/hr IV Q2H [facility] Rx#:[id number] fentaNYL citrate 2,500 mcg In 204.5 / 292.5 88 / 292.5 250 ml @ 75 MCG/HR 7.5 mls/hr IV .[id number] [facility] Rx#:[id number] levoFLOXacin/D5W 750 mg In 150 150 / 150 ml @ 100 mls/hr IV Q24H [facility] Rx# :[id number] propofoL 1,000 mg In 100 ml @ 286.67 / 935.845 349.175 / 935.845 49.375 / 49.375 40 MCG/KG/MIN 40.464 mls/hr IV .Q2H29M [facility] Rx#:[id number] Output: Urine Amount (Catheter) 645 / 1505 300 / 1505 Paulino/Indwelling 645 / 1505 300 / 1505 Other: Weight 161.1 kg Weight Measurement Method Built in [facility]
[2022-07-15] MEDS ORDERED: PEPTAMEN INTENSE VHP 1.0 CAL 1,000 ML BAG OG SCH (11:45)
[2022-07-15] MEDS: cefTRIAXone SODIUM 2,000 MG in DEXTROSE 5% 50 ML IV SCH (12:13)
[2022-07-15] MEDS: FUROSEMIDE 40 MG in SYRINGE 0 ML IV SCH ×3 (12:13→21:17)
[2022-07-15] MEDS: LANSOPRAZOLE 30 MG SOLTAB NG SCH (12:14)
[2022-07-15] MEDS: TUBE FEEDING WATER FLUSH OG SCH ×4 (12:17→23:48)
[2022-07-15] MEDS: dexMEDEtomidine 200 MCG/50 ML BAG IV SCH ×6 (12:19→18:57)
[2022-07-15] MEDS: fentaNYL citrate 2,500 MCG/250 ML BAG IV SCH ×4 (12:29→22:25)
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
[2022-07-15] MEDS ORDERED: dexMEDEtomidine 400 MCG/100 ML BAG IV SCH (19:45)
[2022-07-15 20:27] LABS: Calcium 8.7 mg/dl (8.6-10.3); Potassium 4.5 mmol/L (3.5-5.1)
[2022-07-15 20:32] LABS: BUN Creatinine Ratio 27.1 (10-20); Creatinine Clr Calc Pharmacy 98.8 ml/min; Est GFR (African American) 72.9 ml/min; Est GFR (Non-African American) 62.9 ml/min
[2022-07-15] MEDS: ATORVASTATIN 40 MG TAB PO SCH (20:35)
[2022-07-15] MEDS: carvediloL 6.25 MG TAB PO SCH (20:36)
[2022-07-15] MEDS: LANTUS PER UNIT CHARGE SQ SCH (20:43)
[2022-07-15 21:12] LABS: iSTAT Allen Test Pass; iSTAT Arterial Blood Gas HCO3 43 meg/L (19-24); iSTAT Arterial Blood Gas pCO2 71 mmHg (35-46); iSTAT Arterial Blood Gas pH 7.39 (7.35-7.45); iSTAT Arterial Blood Gas pO2 70 mmHg (80-95); iSTAT Carbon Dioxide > 40 mmol/L (24-31); iSTAT FiO2 60 %; iSTAT Site R Radial
[2022-07-15] MEDS ORDERED: Nursing to Pharmacy Communication SCH (21:15)
[2022-07-16] MEDS: propofoL 1,000 MG/100 ML VIAL IV SCH ×4 (01:59→12:05)
[2022-07-16] MEDS: methylPREDNISolone 60 MG in SYRINGE 0 ML IV SCH ×2 (02:01→10:05)
[2022-07-16] MEDS: fentaNYL citrate 2,500 MCG/250 ML BAG IV SCH (04:27)
[2022-07-16 04:31] LABS: iSTAT Allen Test Pass; iSTAT Arterial Blood Gas HCO3 41 meg/L (19-24); iSTAT Arterial Blood Gas pCO2 60 mmHg (35-46); iSTAT Arterial Blood Gas pH 7.44 (7.35-7.45); iSTAT Arterial Blood Gas pO2 69 mmHg (80-95); iSTAT Carbon Dioxide > 40 mmol/L (24-31); iSTAT FiO2 50 %; iSTAT Site R Radial
[2022-07-16] MEDS: TUBE FEEDING WATER FLUSH OG SCH ×6 (04:40→23:41)
[2022-07-16] MEDS: LEVOTHYROXINE SODIUM 200 MCG TABLET PO SCH (05:36)
[2022-07-16 05:46] LABS: Basophils # (auto) 0.01 K/uL (0-0.2); Basophils % (auto) 0.1 %; Eosinophils # (auto) 0.01 K/uL (0-0.50); Eosinophils % (auto) 0.1 %; Immature Granulocytes # (auto) 0.05 K/uL (0.01-0.20); Immature Granulocytes % (auto) 0.5 %; Lymphocytes # (auto) 0.95 K/uL (1.2-3.4); Lymphocytes % (auto) 9.2 %; Mean Corpuscular Hemoglobin 28.4 pg (25.0-34.0); Mean Corpuscular Hgb Conc 32.5 g/dL (32.0-36.0); Mean Corpuscular Volume 87.5 fL (80.0-100.0); Mean Platelet Volume 10.5 fL (9.4-12.4); Monocytes # (auto) 0.84 K/uL (0.11-0.59); Monocytes % (auto) 8.2 %; Neutrophils # (auto) 8.44 K/uL (1.40-6.50); Neutrophils % (auto) 81.9 %; Platelet Count 260 K/uL (130-400); RDW Coefficient of Variation 16.1 % (11.5-14.5); RDW Standard Deviation 50.4 fL (36.4-46.3); Red Blood Count 4.57 M/uL (4.70-6.10)
[2022-07-16 06:00] LABS: Calcium 8.7 mg/dl (8.6-10.3); Magnesium 2.4 mg/dl (1.7-2.4); Potassium 3.9 mmol/L (3.5-5.1)
[2022-07-16 06:06] LABS: BUN Creatinine Ratio 32.5 (10-20); Creatinine Clr Calc Pharmacy 102.2 ml/min; Est GFR (Non-African American) 64.7 ml/min
[2022-07-16 06:13] LABS: Phosphorus 5.4 mg/dl (2.5-4.9)
[2022-07-16] MEDS: ICU ELECTROLYTE REPLACEMENT PROTOCOL SCH ×2 (06:37→18:17)
[2022-07-16] MEDS: INSULIN ASPART PER UNIT CHARGE SC SCH ×4 (06:38→23:37)
[2022-07-16] MEDS: POTASSIUM CHLORIDE / WTR 20 MEQ/100 ML PLCT IV SCH ×2 (06:51→08:47)
--- NOTE | 2022-07-16 08:07 | XRay Report ---
XR chest 1V portable HISTORY: eval ETT, lines, pleural santos COMPARISON: Chest 07/14/2022. FINDINGS: No pneumothorax. The endotracheal tube terminates 2.4 cm from the nixon. The nasogastric t ube terminates below the diaphragm. The tip is not included in this study. A right jugular central ve nous catheter terminates at the distal SVC, unchanged. Cardiomegaly, pulmonary edema, and small bilat eral pleural effusions are again noted. Bibasilar densities have slightly improved. IMPRESSION: 1. Satisfactory support line placement. 2. No change in the pulmonary edema and small bilateral pleural effusions. 3. Bibasilar densities have slightly improved. ACT 112: Negative or not required by law. Electronically signed by: Kishore Kraft M.D. 07/16/2022 8:06 AM
[2022-07-16] MEDS: FLUTICASONE/VILANTEROL 100/25MCG 14 PUFFS/INHALER INH SCH (08:26)
[2022-07-16] MEDS: LANSOPRAZOLE 30 MG SOLTAB NG SCH (10:01)
[2022-07-16] MEDS: ENOXAPARIN INJ 40 MG/0.4 ML SYR SQ SCH ×2 (10:02→20:20)
[2022-07-16] MEDS: MULTI VIT W/MINERALS LIQUID 15 ML UDP PO SCH (10:02)
[2022-07-16] MEDS: CHOLECALCIFEROL 400 UNITS 10 MCG TAB PO SCH (10:02)
[2022-07-16] MEDS: NYSTATIN POWDER 15GM BTL EXT SCH ×3 (10:03→20:21)
[2022-07-16] MEDS: carvediloL 6.25 MG TAB PO SCH ×2 (10:04→20:19)
[2022-07-16] MEDS: cefTRIAXone SODIUM 2,000 MG in DEXTROSE 5% 50 ML IV SCH (10:06)
[2022-07-16] MEDS ORDERED: SPIRONOLACTONE 25 MG TAB PO ONE (10:15)
[2022-07-16] MEDS: DOCUSATE SODIUM SYRUP 100 MG/10 ML UDC PO SCH ×2 (10:32→20:19)
[2022-07-16] MEDS: FUROSEMIDE 40 MG TAB PO SCH ×2 (10:32→20:21)
--- NOTE | 2022-07-16 10:57 | Cardiology Progress Note ---
Date of Service July 16, 2022 Assessment & Plan (1) Acute on chronic right-sided congestive heart failure: (2) Acute on chronic respiratory failure with hypoxia and hypercapnia: (3) Solitary kidney, acquired: (4) Severe obesity (BMI >= 40): (5) Chronic kidney disease: (6) CARLITOS (obstructive sleep apnea): Plan No further recommendations at this time. Contact with any questions or concerns. Admission and Anticipated Discharge Date Admission Date: July 13, 2022 Supervising Physician Co-Signing Physician Notes Patient seen and examined. Remains vented. Negative fluid balance. Stable renal function. Edema mildly improved. Significant edema on exam. Patient intubated on breathing trial this AM. No family present at bedside. PE: VSS. GEN: NAD, AAO x3. Heart regular rhythm, normal S1-S2. No murmur. Lungs: Clear breath sounds bilaterally. No rales, rhonchi, or wheeze. Extremities:1-2+ b/l pitting edema to the waist. A/P: Agree with above PA-C history, physical exam, assessment and plan. Continue IV diuresis plus Aldactone. Monitored fluid balance, electrolytes, and GFR daily. Continue beta-treva and statin therapy. Ventilator management as per critical care. Cardiology will sign off. Please call with questions. Subjective Patient seen and examined. Chart, medications, and telemetry review. Sedated, mechanically ventilated. No family at bedside. Telemetry: Bradycardia to 39 bpm on 07/16/2022 at 06:48:33, currently 56 bpm. Carvedilol last administered on 07/13/2022. Off Precedex now. Resting echocardiography on 07/14/2022 with normal to hyperdynamic LV systolic function, EF 65-70%, with moderate concentric LVH, moderately dilated RV with mildly reduced RV systolic function. Valves poorly visualized. Review of Systems Review of Systems: Complete review of systems unable to be obtained Physical Exam Physical Exam: General: Sedated. Mechanically ventilated. Heart: RRR, 52 bpm. Extremities: Diffuse edema, improving. Results & Data Vital Signs (Past 12 Hours) Vital Signs Temp Pulse Resp BP Pulse Ox FiO2 07/16/22 07:55 54 L 16 93 50 07/16/22 05:00 36.7 C 59 L 16 95 07/16/22 05:00 131/73 07/16/22 04:00 36.8 C 45 L 16 94 07/16/22 04:00 108/62 07/16/22 03:00 36.9 C 47 L 16 94 07/16/22 03:00 105/07/16/22 02:00 37.0 C 48 L 16 95 07/16/22 02:00 10407/16/22 01:00 37.1 C 50 L 16 95 07/16/22 01:00 10407/16/22 00:00 37.1 C 50 L 16 95 07/16/22 00:00 10407/15/22 23:00 37.2 C 48 L 16 94 07/15/22 23:00 107/62 07/16/22 04:00 50 07/16/22 02:29 51 L 16 94 50 07/16/22 00:00 60 07/15/22 23:08 50 L 16 94 60 Laboratory Results Lipids 07/16/22 Range/Units 05:27 Triglycerides 428 H (0-150) mg/dl CBC 07/16/22 Range/Units 05:27 WBC 10.30 (4.8-10.8) K/ul RBC 4.57 L (4.70-6.10) M/uL Hgb 13.0 L (14.0-18.0) g/dl Hct 40.0 L (42.0-52.0) % Plt Count 260 (130-400) K/uL Neut # (Auto) 8.44 H (1.40-6.50) K/uL Lymph # (Auto) 0.95 L (1.2-3.4) K/uL [place] # (Auto) 0.84 H (0.11-0.59) K/uL Eos # (Auto) 0.01 (0-0.50) K/uL Baso # (Auto) 0.01 (0-0.2) K/uL Comprehensive Metabolic Panel 07/15/22 07/16/22 Range/Units 19:35 05:27 Sodium 136 136 (136-145) mmol/L Potassium 4.5 3.9 (3.5-5.1) mmol/L Chloride 93 L 93 L (98-107) mmol/L Carbon Dioxide 37 H 37 H (21-32) mmol/L BUN 35 H 41 H (6-23) mg/dl Creatinine 1.29 1.26 (0.6-1.4) mg/dl Glucose 158 H 142 H (70-99(Fasting)) mg/dl Calcium 8.7 8.7 (8.6-10.3) mg/dl Intake and Output 07/15/22 07/16/22 07/16/22 22:59 06:59 14:59 Intake Total 562.151 / 1737.450 254.549 / 1737.450 487.413 / 487.413 Output Total 999 / 3349 1399 / 0 Balance -437.849 / -1612.550 -1145.451 / -1612.550 487.413 / 487.413 Intake: IV 512.151 / 1487.450 254.549 / 1487.450 487.413 / 487.413 Potassium Chloride / Wtr 20 meq 200 / 200 In 100 ml @ 50 mls/hr IV Q2H ANDRE Rx#:[id number] cefTRIAXone SODIUM 2,000 mg In 70 / 70 Dextrose 5% 50 ml @ 140 mls/hr IV Q24H ANDRE Rx#:[id number] dexMEDEtomidine 200 mcg In 50 131.155 / 155.265 ml @ 0.5 MCG/KG/HR 20.138 mls/ hr IV .Q2H29M ANDRE Rx#:[id number] dexMEDEtomidine 400 mcg In 100 39.372 / 39.372 ml @ 0 MCG/KG/HR IV .Q0M ANDRE Rx #:[id number] fentaNYL citrate 2,500 mcg In 178.333 / 357.500 57.084 / 357.500 58.833 / 58.833 250 ml @ 100 MCG/HR 10 mls/hr IV .Q25H ANDRE Rx#:[id number] propofoL 1,000 mg In 100 ml @ 163.291 / 615.646 197.465 / 615.646 158.58 / 158.58 30 MCG/KG/MIN 30.348 mls/hr IV .Q3H18M ANDRE Rx#:[id number] Tube Irrigant 50 / 250 Output: Urine Amount (Catheter) 999 / 0 Paulino/Indwelling 999 / 3350 Other: Weight 163.9 kg Weight Measurement Method Built in [facility]
--- NOTE | 2022-07-16 11:38 | Critical Care Progress Note ---
Date of Service July 16, 2022 Assessment & Plan (1) Respiratory failure: (2) Hypoxia: (3) COPD (chronic obstructive pulmonary disease): (4) NAFLD (nonalcoholic fatty liver disease): (5) Type 2 diabetes mellitus with albuminuria: (6) Acute on chronic right-sided congestive heart failure: (7) Severe obesity (BMI >= 40): (8) Chronic kidney disease: (9) CARLITOS (obstructive sleep apnea): Plan Reason Critically Ill: 52 YOM presented with complaints of increased dyspnea, was emergently intubated in EMD for failure on BiPAP in the setting of hypercarbic and hypoxic respiratory failure in a morbidly obese male. WIll admit to ICU continue diuresing as well as continued steroid and nebulizers for his COPD Neuro - Metabolic encephalopathy, resolved Cardiac -acute on chronic right-sided congestive heart failure -Cardiology signing off -Starting Lasix 40 twice daily with spironolactone 25 mg daily Coreg 6.25 mg twice daily Hypertension -Restart amlodipine 5 mg daily -Hold lisinopril till likely tomorrow Respiratory - COPD exacerbation, hypercarbic respiratory failure, hypoxic respiratory failure requiring intubation and mechanical ventilation, CARLITOS, obesity hypoventilation syndrome - ABG with notable hypercarbia, body habitus makes physical exam very limited to non-existent to appreciate wheezes or air movement - COVID/FLU/RSV negative- -decrease steroids from 60 mg to 30 mg -60+ pack year smoking history, discontinued approximately 9 years ago -Extubated to BiPAP continue to wean BiPAP GI -hyperlipidemia -Atorvastatin 40 mg daily Bowel regimen: Colace 100 mg twice daily -Speech therapy consult to clear for p.o. Hypertriglyceridemia -Discontinuing propofol as he is no longer intubated requiring sedation RENAL/LYTES - CKD - 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 -Creatinine has appeared to have nadired however baseline appears to be elevated from prior lab values - No acute needs - Paulino to gravity ENDO - DMII, Hypothyroidism - ICU hyperglycemic protocol HEME - DVT prophylaxis: Lovenox 40 mg subcu every 12 hours ID -1 out of 2 blood cultures demonstrating staphylococcal species -Repeat blood cultures show no growth to date, no obvious finding on echocardiogram, I believe these blood cultures to represent skin contamination Bronchoscopy report: MSSA -Continue IV Rocephin until able to take p.o. -Transition to 7-day course empiric COPD antibiotic coverage LINES/IV ACCESS - CVL, PIV, Lora, DISPO: ICU I have personally spent 50 minutes of critical care time in the direct management of this patient. This is a life/limb threatening event. This includes time spent evaluating patient, direct bedside care, chart review, placing orders, interpretation of diagnostic studies, discussion with consultants, patient, and family members, as well as other required patient management activi ties. This time is exclusive of all separately billable procedures, separate from and in addition to any other critical care service time. Admission and Anticipated Discharge Date Admission Date: July 13, 2022 Subjective No overnight events. Patient was able to follow commands with lightening of sedation. 2 out of 10 right-sided chest pain with movement. No radiation. Physical Exam Physical Exam: General: Alert. nontoxic. After extubation patient was asking what exactly happened able to comprehend and engage in appropriate conversation Skin: Warm, dry, Head: Atraumatic Ears, nose, mouth and throat: BiPAP mask present Cardiovascular: Normal peripheral perfusion Respiratory: no respiratory distress Gastrointestinal: Non distended Musculoskeletal: No deformity Results & Data Results & Data Vital Signs (Past 12 Hours) Vital Signs Temp Pulse Resp BP Pulse Ox FiO2 07/16/22 10:05 78 16 94 40 07/16/22 09:57 60 16 92 50 07/16/22 07:55 54 L 16 93 50 07/16/22 05:00 36.7 C 59 L 16 95 07/16/22 05:00 131/73 07/16/22 04:00 36.8 C 45 L 16 94 07/16/22 04:00 108/62 07/16/22 03:00 36.9 C 47 L 16 94 07/16/22 03:00 105/61 07/16/22 02:00 37.0 C 48 L 16 95 07/16/22 02:00 104/61 07/16/22 01:00 37.1 C 50 L 16 95 07/16/22 01:00 104/62 07/16/22 00:00 37.1 C 50 L 16 95 07/16/22 00:00 104/61 07/16/22 04:00 50 07/16/22 02:29 51 L 16 94 50 07/16/22 00:00 60 Critical Care Results & Data Vital Signs (Past 12 Hours) Vital Signs Temp Pulse Resp BP Pulse Ox FiO2 07/16/22 10:05 78 16 94 40 07/16/22 09:57 60 16 92 50 07/16/22 07:55 54 L 16 93 50 07/16/22 05:00 36.7 C 59 L 16 95 07/16/22 05:00 131/73 07/16/22 04:00 36.8 C 45 L 16 94 07/16/22 04:00 108/62 07/16/22 03:00 36.9 C 47 L 16 94 07/16/22 03:00 105/61 07/16/22 02:00 37.0 C 48 L 16 95 07/16/22 02:00 104/61 07/16/22 01:00 37.1 C 50 L 16 95 07/16/22 01:00 104/62 07/16/22 00:00 37.1 C 50 L 16 95 07/16/22 00:00 104/61 07/16/22 04:00 50 07/16/22 02:29 51 L 16 94 50 07/16/22 00:00 60 Lab & Micro Results (Past 24 Hours) RBC 4.57 M/uL (4.70-6.10) L 07/16/22 WBC 10.30 K/ul (4.8-10.8) 07/16/22 Hgb 13.0 g/dl (14.0-18.0) L 07/16/22 Hct 40.0 % (42.0-52.0) L 07/16/22 MCV 87.5 fL (80.0-100.0) 07/16/22 MCH 28.4 pg (25.0-34.0) 07/16/22 MCHC 32.5 g/dL (32.0-36.0) 07/16/22 RDW Standard Deviation 50.4 fL (36.4-46.3) H 07/16/22 RDW Coefficient of Variation 16.1 % (11.5-14.5) H 07/16/22 Plt Count 260 K/uL (130-400) 07/16/22 MPV 10.5 fL (9.4-12.4) 07/16/22 Neutrophils (%) (Auto) 81.9 % 07/16/22 Lymphocytes (%) (Auto) 9.2 % 07/16/22 Monocytes # (Auto) 0.84 K/uL (0.11-0.59) H 07/16/22 Eosinophils # (Auto) 0.01 K/uL (0-0.50) 07/16/22 Immature Granulocyte % (Auto) 0.5 % 07/16/22 Neutrophils # (Auto) 8.44 K/uL (1.40-6.50) H 07/16/22 Lymphocytes # (Auto) 0.95 K/uL (1.2-3.4) L 07/16/22 Monocytes # (Auto) 0.84 K/uL (0.11-0.59) H 07/16/22 Eosinophils # (Auto) 0.01 K/uL (0-0.50) 07/16/22 Basophils # (Auto) 0.01 K/uL (0-0.2) 07/16/22 Immature Granulocyte # (Auto) 0.05 K/uL (0.01-0.20) 3 Na 136 mmol/L (136-145) 07/16/22 K 3.9 mmol/L (3.5-5.1) 07/16/22 Cl 93 mmol/L (98-107) L 07/16/22 CO2 37 mmol/L (21-32) H 07/16/22 Anion Gap 6 (3-11) 07/16/22 BUN 41 mg/dl (6-23) H 07/16/22 Creatinine 1.26 mg/dl (0.6-1.4) 07/16/22 Estimated GFR ( Amer) 75.0 ml/min 07/16/22 Estimated GFR (Non-Af Amer) 64.7 ml/min 07/16/22 BUN/Creatinine Ratio 32.5 (10-20) H 07/16/22 Glu 142 mg/dl (70-99(Fasting)) H 07/16/22 Ca 8.7 mg/dl (8.6-10.3) 07/16/22 Phosphorus Level 5.4 mg/dl (2.5-4.9) H 07/16/22 Mg 2.4 mg/dl (1.7-2.4) 07/16/22 05:27 Calcium Level 8.7 mg/dl (8.6-10.3) 07/16/22 05:27 Ionized Calcium 1.07 mmol/L (1.12-1.32) L 07/16/22 05:27 Ponce Test Pass 07/16/22 04:18 Microbiology 07/14/22 14:25 Gram Stain - Final Bronch Wash,Right Lower Lobe Bronchial Culture - Preliminary Staphylococcus aureus 07/13/22 21:04 Aerobic Blood Culture - Preliminary Blood No growth in Aerobic bottle after 48 hours. Anaerobic Blood Culture - Preliminary Gram positive cocci clusters 07/13/22 16:05 Aerobic Blood Culture - Preliminary Blood No growth in Aerobic bottle after 48 hours. Anaerobic Blood Culture - Preliminary No growth in Anaerobic bottle after 48 hours. 07/13/22 15:21 Aerobic Blood Culture - Preliminary Blood No growth in Aerobic bottle after 48 hours. Anaerobic Blood Culture - Preliminary No growth in Anaerobic bottle after 48 hours. 07/14/22 14:25 Fungal Smear - Final Bronch Wash,Right Lower Lobe Diagnostic Findings (Past 24 Hours) Chest X-Ray 07/16/22 05:00 XR chest 1V portable HISTORY: eval ETT, lines, pleural santos COMPARISON: Chest 07/14/2022. FINDINGS: No pneumothorax. The endotracheal tube terminates 2.4 cm from the nixon. The nasogastric tube terminates below the diaphragm. The tip is not included in this study. A right jugular central venous catheter terminates at the distal SVC, unchanged. Cardiomegaly, pulmonary edema, and small bilateral pleural effusions are again noted. Bibasilar densities have slightly improved. IMPRESSION: 1. Satisfactory support line placement. 2. No change in the pulmonary edema and small bilateral pleural effusions. 3. Bibasilar densities have slightly improved. ACT 112: Negative or not required by law. Electronically signed by: Kishore Kraft M.D. 07/16/2022 8:06 AM I & O Totals 24 Hours 07/15/22 07/16/22 07/17/22 06:59 06:59 06:59 Intake Total 1888.345 / 3658.810 5736.450 / 1737.450 487.413 / 487.413 Output Total 1505 / 1505 3350 / 3350 Balance 383.345 / 383.345 -1612.550 / -1612.550 487.413 / 487.413 Cumulative 07/13/22 15:02 thru 07/16/22 10:49 Intake Total 5032.408 Output Total 5505 Balance -472.592 RT Ventilator Mngmt (Last Documented) Ventilator Ordered Settings Ventilator Support Mode CPAP 07/16/22 10:05 Respiratory Rate 16 07/16/22 10:05 Ventilator Tidal Volume 450 07/16/22 09:57 Setting Minute Ventilation 7.5 07/16/22 10:05 Ventilator Positive Pressure 12 07/16/22 10:05 Support Setting Positive End Expiratory 6 07/16/22 10:05 Pressure Fraction of Inspired Oxygen 40 07/16/22 10:05 Peak Inspiratory Flow 36 07/15/22 15:15 Machine Comment Placed on CPAP per Dr. De La Vega 07/16/22 10:05 Ventilator - PT Measurements Respiratory Rate 16 Exhaled Tidal Volume 557 Minute Ventilation 7.5 Peak Inspiratory Airway 20 Pressure Plateau Pressure 21 Respiratory Cycle Inspiratory: 1:2.8 Expiratory Ratio Inspiratory Phase Time 1.26 End-Tidal CO2 53 Static Lung Compliance 41.09 Dynamic Lung Compliance 39.79 Normal Static Lung Compliance 48.00 Patient Measurements Comment Patient extubated to BIPAP 03/03 50% Coding Level of Care Code 44481 CRITICAL CARE 1ST 30-74M Diagnoses Respiratory failure J96.01; J96.02; J96.02 Chronicity: acute Respiratory failure complication: hypoxia and hypercapnia Hypoxia R09.02 COPD (chronic obstructive pulmonary disease) J44.9 COPD type: unspecified COPD NAFLD (nonalcoholic fatty liver disease) K76.0 Type 2 diabetes mellitus with albuminuria E11.29; R80.9 Acute on chronic right-sided congestive heart failure I50.813 Severe obesity (BMI >= 40) E66.01 Chronic kidney disease N18.9 CARLITOS (obstructive sleep apnea) G47.33 (1) Respiratory failure Chronicity: acute Respiratory failure complication: hypoxia and hypercapnia Qualified Code(s): J96.01 - Acute respiratory failure with hypoxia; J96.02 - Acute respiratory failure with hypercapnia; J96.02 - Acute respiratory failure with hypercapnia (3) COPD (chronic obstructive pulmonary disease) COPD type: unspecified COPD Qualified Code(s): J44.9 - Chronic obstructive pulmonary disease, unspecified
[2022-07-16] MEDS: LIDOCAINE 5% 1 PATCH TD SCH (12:13)
[2022-07-16] MEDS: ONDANSETRON INJ 2 MG/ML 2 ML VIAL IV PRN ×2 (12:39→22:18)
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
[2022-07-16] MEDS ORDERED: ONDANSETRON INJ 2 MG/ML 2 ML VIAL IV STA (15:26)
[2022-07-16] MEDS ORDERED: PROCHLORPERAZINE 5 MG in SYRINGE 4 ML IV ONE (17:15)
[2022-07-16] MEDS: methylPREDNISolone 30 MG in SYRINGE 0 ML IV SCH ×2 (18:18→23:44)
[2022-07-16] MEDS: ATORVASTATIN 40 MG TAB PO SCH (20:18)
[2022-07-16] MEDS: LANTUS PER UNIT CHARGE SQ SCH (23:37)
[2022-07-17] MEDS: TUBE FEEDING WATER FLUSH OG SCH (01:44)
[2022-07-17] MEDS: LEVOTHYROXINE SODIUM 200 MCG TABLET PO SCH (06:00)
[2022-07-17 06:10] LABS: Hematocrit (blood only) 42.8 % (42.0-52.0); Hemoglobin 13.3 g/dl (14.0-18.0); Immature Granulocytes # (auto) 0.03 K/uL (0.01-0.20); Immature Granulocytes % (auto) 0.3 %; Lymphocytes # (auto) 0.53 K/uL (1.2-3.4); Lymphocytes % (auto) 5.9 %; Mean Corpuscular Hemoglobin 27.9 pg (25.0-34.0); Mean Corpuscular Hgb Conc 31.1 g/dL (32.0-36.0); Mean Corpuscular Volume 89.9 fL (80.0-100.0); Mean Platelet Volume 10.3 fL (9.4-12.4); Monocytes % (auto) 5.6 %; Neutrophils # (auto) 7.92 K/uL (1.40-6.50); Neutrophils % (auto) 88.2 %; Platelet Count 249 K/uL (130-400); RDW Coefficient of Variation 15.9 % (11.5-14.5); RDW Standard Deviation 52.1 fL (36.4-46.3); Red Blood Count 4.76 M/uL (4.70-6.10); White Blood Count 8.98 K/ul (4.8-10.8)
[2022-07-17 06:29] LABS: BUN Creatinine Ratio 39.8 (10-20); Creatinine Clr Calc Pharmacy 136.8 ml/min; Est GFR (African American) 108.2 ml/min; Est GFR (Non-African American) 93.4 ml/min; Magnesium 2.4 mg/dl (1.7-2.4); Phosphorus 4.7 mg/dl (2.5-4.9); Potassium 4.9 mmol/L (3.5-5.1)
[2022-07-17] MEDS: ICU ELECTROLYTE REPLACEMENT PROTOCOL SCH ×2 (06:32→18:24)
[2022-07-17] MEDS: INSULIN ASPART PER UNIT CHARGE SC SCH ×4 (06:32→20:23)
--- NOTE | 2022-07-17 08:14 | XRay Report ---
XR chest 1V portable HISTORY: 52 years-old Male Resp failure acute respiratory failure COMPARISON: Chest radiograph 07/16/2022 TECHNIQUE: AP view of the chest FINDINGS: Status post extubation with removal of the enteric tube. A right IJ central venous catheter is noted with distal tip in the expected location of the inferior SVC. No pneumothorax. Small pleural effusion s with mild bibasilar consolidation again noted. Pulmonary vascular congestion with interstitial coar sening. Degenerative changes of the shoulders and spine. IMPRESSION: 1. Status post extubation with removal of the enteric tube. 2. Cardiomegaly with unchanged pulmonary edema. 3. Persistent small pleural effusions with mild bibasilar consolidation. ACT 112: Negative or not required by law. The above report was generated using voice recognition software. It may contain grammatical, syntax o r spelling errors. Electronically signed by: Jerrod Gale M.D. 07/17/2022 8:13 AM
[2022-07-17] MEDS: amLODIPine BESYLATE 5 MG TAB PO SCH (08:31)
[2022-07-17] MEDS: carvediloL 6.25 MG TAB PO SCH ×2 (08:31→20:20)
[2022-07-17] MEDS: FLUTICASONE/VILANTEROL 100/25MCG 14 PUFFS/INHALER INH SCH (08:32)
[2022-07-17] MEDS: ENOXAPARIN INJ 40 MG/0.4 ML SYR SQ SCH ×2 (08:32→20:22)
[2022-07-17] MEDS: CHOLECALCIFEROL 400 UNITS 10 MCG TAB PO SCH (08:32)
[2022-07-17] MEDS: LIDOCAINE 5% 1 PATCH TD SCH (08:33)
[2022-07-17] MEDS: NYSTATIN POWDER 15GM BTL EXT SCH ×3 (08:34→20:30)
[2022-07-17] MEDS: SPIRONOLACTONE 25 MG TAB PO SCH (08:35)
[2022-07-17] MEDS: DOCUSATE SODIUM 100 MG CAP PO SCH ×2 (08:36→20:21)
[2022-07-17] MEDS: FUROSEMIDE 40 MG TAB PO SCH ×2 (09:03→20:22)
[2022-07-17] MEDS: CEROVITE ADV FORMULA TAB PO SCH (09:04)
[2022-07-17] MEDS: PANTOprazole 40 MG TAB PO SCH (09:04)
[2022-07-17] MEDS: methylPREDNISolone 30 MG in SYRINGE 0 ML IV SCH (09:12)
--- NOTE | 2022-07-17 09:36 | Critical Care Progress Note ---
Date of Service July 17, 2022 Assessment & Plan (1) Respiratory failure: (2) Hypoxia: (3) COPD (chronic obstructive pulmonary disease): (4) NAFLD (nonalcoholic fatty liver disease): (5) Type 2 diabetes mellitus with albuminuria: (6) Acute on chronic right-sided congestive heart failure: (7) Severe obesity (BMI >= 40): (8) Chronic kidney disease: (9) CARLITOS (obstructive sleep apnea): Plan Reason Critically Ill: 52 YOM presented with complaints of increased dyspnea, was emergently intubated in EMD for failure on BiPAP in the setting of hypercarbic and hypoxic respiratory failure in a morbidly obese male. WIll admit to ICU continue diuresing as well as continued steroid and nebulizers for his COPD Neuro - Metabolic encephalopathy, resolved Cardiac -acute on chronic right-sided congestive heart failure -Cardiology signed off Lasix 40 twice daily with spironolactone 25 mg daily Coreg 6.25 mg twice daily Hypertension -amlodipine 5 mg daily -Hold lisinopril additional 24 hours given increase in potassium Respiratory - COPD exacerbation, hypercarbic respiratory failure, hypoxic respiratory failure requiring intubation and mechanical ventilation, CARLITOS, o besity hypoventilation syndrome - ABG with notable hypercarbia, body habitus makes physical exam very limited to non-existent to appreciate wheezes or air movement - COVID/FLU/RSV negative- -change steroids to oral prednisone taper -60+ pack year smoking history, discontinued approximately 9 years ago -wean BiPAP GI -hyperlipidemia -Atorvastatin 40 mg daily Bowel regimen: Colace 100 mg twice daily -Speech therapy consult to clear for p.o. Hypertriglyceridemia -Discontinuing propofol as he is no longer intubated requiring sedation RENAL/LYTES - CKD - 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 -Improved Creatinine, continue diuresis with additional Bumex 1mg IV BID in addition to daily meds - No acute needs - Paulino to gravity ENDO - DMII, Hypothyroidism - ICU hyperglycemic protocol HEME - DVT prophylaxis: Lovenox 40 mg subcu every 12 hours ID -1 out of 2 blood cultures demonstrating staphylococcal species -Repeat blood cultures show no growth to date, no obvious finding on echocardiogram, I believe these blood cultures to represent skin contamination Bronchoscopy report: MSSA -Transition from IV Rocephin to oral Ceftin for total 7 days effective therapy for presumptive COPD exacerbation LINES/IV ACCESS - PIV, Paulino, discontinue central line DISPO: ICU for very tenuous respiratory status I have personally spent 40 minutes of critical care time in the direct management of this patient. This is a life/limb threatening event. This includes time spent evaluating patient, direct bedside care, chart review, placing orders, interpretation of diagnostic studies, discussion with consultants, patient, and family members, as well as other required patient management activities. This time is exclusive of all separately billable procedures, separate from and in addition to any other critical care service time. Admission and Anticipated Discharge Date Admission Date: July 13, 2022 Subjective waxing and waning oxygen requirements, higher than his baseline prior to this admission Physical Exam Physical Exam: General: Alert. nontoxic. Skin: Warm, dry, Head: Atraumatic Ears, nose, mouth and throat: BiPAP mask present Cardiovascular: Normal peripheral perfusion Respiratory: no respiratory distress Gastrointestinal: Non distended Musculoskeletal: No deformity Results & Data Results & Data Vital Signs (Past 12 Hours) Vital Signs Temp Pulse Resp BP Pulse Ox O2 Del Method O2 Flow Rate 07/17/22 09:00 36.8 C 67 16 150/76 H 93 BiPAP 15 07/17/22 08:00 36.8 C 68 16 154/76 H 95 BiPAP, CPAP 10 07/17/22 07:01 36.7 C 58 L 18 147/80 H 94 BiPAP 10 07/17/22 06:00 36.8 C 67 21 97 07/17/22 05:01 145/82 H 07/17/22 05:01 37.0 C 60 22 94 07/17/22 05:00 36.9 C 62 17 91 07/17/22 04:01 36.9 C 71 19 93 07/17/22 04:01 149/80 H 07/17/22 04:00 36.9 C 56 L 17 91 07/17/22 03:01 36.8 C 75 18 91 07/17/22 03:01 148/84 H 07/17/22 03:00 36.8 C 60 16 91 07/17/22 02:00 36.9 C 57 L 18 91 07/17/22 01:00 36.8 C 62 17 91 07/17/22 00:00 36.7 C 63 16 92 07/16/22 23:01 134/77 07/16/22 23:01 36.6 C 60 19 91 07/16/22 23:00 36.6 C 56 L 17 91 07/16/22 22:01 36.4 C L 56 L 14 92 07/16/22 22:01 139/73 07/16/22 22:00 36.4 C L 59 L 18 91 Critical Care Results & Data Vital Signs (Past 12 Hours) Vital Signs Temp Pulse Resp BP Pulse Ox O2 Del Method O2 Flow Rate 07/17/22 09:00 36.8 C 67 16 150/76 H 93 BiPAP 15 07/17/22 08:00 36.8 C 68 16 154/76 H 95 BiPAP, CPAP 10 07/17/22 07:01 36.7 C 58 L 18 147/80 H 94 BiPAP 10 07/17/22 06:00 36.8 C 67 21 97 07/17/22 05:01 145/82 H 07/17/22 05:01 37.0 C 60 22 94 07/17/22 05:00 36.9 C 62 17 91 07/17/22 04:01 36.9 C 71 19 93 07/17/22 04:01 149/80 H 07/17/22 04:00 36.9 C 56 L 17 91 07/17/22 03:01 36.8 C 75 18 91 07/17/22 03:01 148/84 H 07/17/22 03:00 36.8 C 60 16 91 07/17/22 02:00 36.9 C 57 L 18 91 07/17/22 01:00 36.8 C 62 17 91 07/17/22 00:00 36.7 C 63 16 92 07/16/22 23:01 134/77 07/16/22 23:01 36.6 C 60 19 91 07/16/22 23:00 36.6 C 56 L 17 91 07/16/22 22:01 36.4 C L 56 L 14 92 07/16/22 22:01 139/73 07/16/22 22:00 36.4 C L 59 L 18 91 Lab & Micro Results (Past 24 Hours) RBC 4.76 M/uL (4.70-6.10) 07/17/22 WBC 8.98 K/ul (4.8-10.8) 07/17/22 Hgb 13.3 g/dl (14.0-18.0) L 07/17/22 Hct 42.8 % (42.0-52.0) 07/17/22 MCV 89.9 fL (80.0-100.0) 07/17/22 MCH 27.9 pg (25.0-34.0) 07/17/22 MCHC 31.1 g/dL (32.0-36.0) L 07/17/22 RDW Standard Deviation 52.1 fL (36.4-46.3) H 07/17/22 RDW Coefficient of Variation 15.9 % (11.5-14.5) H 07/17/22 Plt Count 249 K/uL (130-400) 07/17/22 MPV 10.3 fL (9.4-12.4) 07/17/22 Neutrophils (%) (Auto) 88.2 % 07/17/22 Lymphocytes (%) (Auto) 5.9 % 07/17/22 Monocytes # (Auto) 0.50 K/uL (0.11-0.59) 07/17/22 Eosinophils # (Auto) 0.00 K/uL (0-0.50) 07/17/22 Immature Granulocyte % (Auto) 0.3 % 07/17/22 Neutrophils # (Auto) 7.92 K/uL (1.40-6.50) H 07/17/22 Lymphocytes # (Auto) 0.53 K/uL (1.2-3.4) L 07/17/22 Monocytes # (Auto) 0.50 K/uL (0.11-0.59) 07/17/22 Eosinophils # (Auto) 0.00 K/uL (0-0.50) 07/17/22 Basophils # (Auto) 0.00 K/uL (0-0.2) 07/17/22 Immature Granulocyte # (Auto) 0.03 K/uL (0.01-0.20) 3 Na 138 mmol/L (136-145) 07/17/22 K 4.9 mmol/L (3.5-5.1) 07/17/22 Cl 94 mmol/L (98-107) L 07/17/22 CO2 41 mmol/L (21-32) H* 07/17/22 Anion Gap 3 (3-11) 07/17/22 BUN 37 mg/dl (6-23) H 07/17/22 Creatinine 0.93 mg/dl (0.6-1.4) 07/17/22 Estimated GFR ( Amer) 108.2 ml/min 07/17/22 Estimated GFR (Non-Af Amer) 93.4 ml/min 07/17/22 BUN/Creatinine Ratio 39.8 (10-20) H 07/17/22 Glu 127 mg/dl (70-99(Fasting)) H 07/17/22 Ca 9.0 mg/dl (8.6-10.3) 07/17/22 Phosphorus Level 4.7 mg/dl (2.5-4.9) 07/17/22 Mg 2.4 mg/dl (1.7-2.4) 07/17/22 05:38 Calcium Level 9.0 mg/dl (8.6-10.3) 07/17/22 05:38 Ionized Calcium 1.13 mmol/L (1.12-1.32) 07/17/22 05:38 Microbiology 07/15/22 10:42 Aerobic Blood Culture - Preliminary Blood No growth in Aerobic bottle after 24 hours. Anaerobic Blood Culture - Final 07/13/22 21:04 Aerobic Blood Culture - Preliminary Blood No growth in Aerobic bottle after 48 hours. Anaerobic Blood Culture - Preliminary Coag neg staph not lugdunensis 07/14/22 14:25 Gram Stain - Final Bronch Wash,Right Lower Lobe Bronchial Culture - Final Staphylococcus aureus 07/15/22 10:36 Aerobic Blood Culture - Preliminary Blood No growth in Aerobic bottle after 24 hours. Anaerobic Blood Culture - Preliminary No growth in Anaerobic bottle after 24 hours. 07/14/22 14:25 Acid Fast Bacilli Smear - Final Bronch Wash,Right Lower Lobe Diagnostic Findings (Past 24 Hours) Chest X-Ray 07/17/22 07:00 XR chest 1V portable HISTORY: 52 years-old Male Resp failure acute respiratory failure COMPARISON: Chest radiograph 07/16/2022 TECHNIQUE: AP view of the chest FINDINGS: Status post extubation with removal of the enteric tube. A right IJ central venous catheter is noted with distal tip in the expected location of the inferior SVC. No pneumothorax. Small pleural effusions with mild bibasilar consolidation again noted. Pulmonary vascular congestion with interstitial coarsening. Degenerative changes of the shoulders and spine. IMPRESSION: 1. Status post extubation with removal of the enteric tube. 2. Cardiomegaly with unchanged pulmonary edema. 3. Persistent small pleural effusions with mild bibasilar consolidation. ACT 112: Negative or not required by law. The above report was generated using voice recognition software. It may contain grammatical, syntax or spelling errors. Electronically signed by: Jerrod Gale M.D. 07/17/2022 8:13 AM I & O Totals 24 Hours 07/16/22 07/17/22 07/18/22 06:59 06:59 06:59 Intake Total 1737.450 / 1737.450 547.413 / 547.413 Output Total 3350 / 3350 2925 / 2925 185 / 185 Balance -1612.550 / -1612.550 -2377.587 / -2377.587 -185 / -185 Cumulative 07/13/22 15:02 thru 07/17/22 07:51 Intake Total 5092.408 Output Total 8615 Balance -3522.592 RT Ventilator Mngmt (Last Documented) Ventilator Ordered Settings Ventilator Support Mode CPAP 07/16/22 10:05 Respiratory Rate 16 07/17/22 09:00 Ventilator Tidal Volume 450 07/16/22 09:57 Setting Minute Ventilation 7.5 07/16/22 10:05 Ventilator Positive Pressure 12 07/16/22 10:05 Support Setting Positive End Expiratory 6 07/16/22 10:05 Pressure Fraction of Inspired Oxygen 50 07/16/22 13:46 Peak Inspiratory Flow 36 07/15/22 15:15 Machine Comment Placed on CPAP per Dr. De La Vega 07/16/22 10:05 Ventilator - PT Measurements Respiratory Rate 16 Exhaled Tidal Volume 557 Minute Ventilation 7.5 Peak Inspiratory Airway 20 Pressure Plateau Pressure 21 Respiratory Cycle Inspiratory: 1:2.8 Expiratory Ratio Inspiratory Phase Time 1.26 End-Tidal CO2 53 Static Lung Compliance 41.09 Dynamic Lung Compliance 39.79 Normal Static Lung Compliance 48.00 Patient Measurements Comment Patient extubated to BIPAP 03/03 50% Coding Level of Care Code 09754 CRITICAL CARE 1ST 30-74M Diagnoses Respiratory failure J96.01; J96.02; J96.02 Chronicity: acute Respiratory failure complication: hypoxia and hypercapnia Hypoxia R09.02 COPD (chronic obstructive pulmonary disease) J44.9 COPD type: unspecified COPD NAFLD (nonalcoholic fatty liver disease) K76.0 Type 2 diabetes mellitus with albuminuria E11.29; R80.9 Acute on chronic right-sided congestive heart failure I50.813 Severe obesity (BMI >= 40) E66.01 Chronic kidney disease N18.9 CARLITOS (obstructive sleep apnea) G47.33 (1) Respiratory failure Chronicity: acute Respiratory failure complication: hypoxia and hypercapnia Qualified Code(s): J96.01 - Acute respiratory failure with hypoxia; J96.02 - Acute respiratory failure with hypercapnia; J96.02 - Acute respiratory failure with hypercapnia (3) COPD (chronic obstructive pulmonary disease) COPD type: unspecified COPD Qualified Code(s): J44.9 - Chronic obstructive pulmonary disease, unspecified
[2022-07-17] MEDS ORDERED: predniSONE 20 MG TAB PO ONE (10:30)
[2022-07-17] MEDS: ONDANSETRON INJ 2 MG/ML 2 ML VIAL IV PRN (10:52)
[2022-07-17] MEDS: BUMETANIDE 1 MG in SYRINGE 0 ML IV SCH ×2 (10:53→21:31)
[2022-07-17] MEDS ORDERED: Nursing to Pharmacy Communication SCH (11:00)
[2022-07-17] MEDS: cefUROXime axetil 500 MG TAB PO SCH ×2 (11:39→16:52)
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
[2022-07-17] MEDS ORDERED: PROCHLORPERAZINE 5 MG in SYRINGE 4 ML IV PRN (15:31)
--- NOTE | 2022-07-17 17:56 | Electrocardiogram Report ---
Test Reason : Blood Pressure : / mmHG Vent. Rate : 067 BPM Atrial Rate : 067 BPM P-R Int : 160 ms QRS Dur : 100 ms QT Int : 430 ms P-R-T Axes : 038 006 036 degrees QTc Int : 454 ms Normal sinus rhythm Normal ECG When compared with ECG of 14-JUL-2022 07:17, No significant change was found Confirmed by Al Moses ([id number] on 07/17/2022 5:56:35 PM Referred By: Deya Caldwell Confirmed By:Randolph Moses
[2022-07-17 18:17] LABS: Phosphorus 3.8 mg/dl (2.5-4.9); Potassium 4.7 mmol/L (3.5-5.1)
[2022-07-17] MEDS: ATORVASTATIN 40 MG TAB PO SCH (20:21)
[2022-07-17] MEDS: LANTUS PER UNIT CHARGE SQ SCH (20:29)
[2022-07-18 05:54] LABS: Eosinophils # (auto) 0.07 K/uL (0-0.50); Eosinophils % (auto) 0.8 %; Hematocrit (blood only) 43.2 % (42.0-52.0); Hemoglobin 13.3 g/dl (14.0-18.0); Immature Granulocytes # (auto) 0.02 K/uL (0.01-0.20); Immature Granulocytes % (auto) 0.2 %; Lymphocytes # (auto) 1.45 K/uL (1.2-3.4); Lymphocytes % (auto) 16.9 %; Mean Corpuscular Hgb Conc 30.8 g/dL (32.0-36.0); Mean Corpuscular Volume 90.9 fL (80.0-100.0); Mean Platelet Volume 10.2 fL (9.4-12.4); Monocytes # (auto) 0.84 K/uL (0.11-0.59); Monocytes % (auto) 9.8 %; Neutrophils # (auto) 6.19 K/uL (1.40-6.50); Neutrophils % (auto) 72.3 %; Platelet Count 241 K/uL (130-400); RDW Coefficient of Variation 15.4 % (11.5-14.5); RDW Standard Deviation 50.4 fL (36.4-46.3); Red Blood Count 4.75 M/uL (4.70-6.10); White Blood Count 8.57 K/ul (4.8-10.8)
[2022-07-18] MEDS: LEVOTHYROXINE SODIUM 200 MCG TABLET PO SCH (06:24)
[2022-07-18 06:29] LABS: BUN Creatinine Ratio 33.3 (10-20); Calcium 9.1 mg/dl (8.6-10.3); Creatinine Clr Calc Pharmacy 117.8 ml/min; Est GFR (African American) 90.3 ml/min; Est GFR (Non-African American) 77.9 ml/min; Phosphorus 3.4 mg/dl (2.5-4.9); Potassium 4.2 mmol/L (3.5-5.1)
[2022-07-18] MEDS ORDERED: STAT IV STA (07:11)
[2022-07-18] MEDS ORDERED: CALCIUM GLUCONATE 10% 1,000 MG in DEXTROSE 5% 50 ML IV ONE (07:15)
[2022-07-18] MEDS: ICU ELECTROLYTE REPLACEMENT PROTOCOL SCH (07:52)
[2022-07-18] MEDS: INSULIN ASPART PER UNIT CHARGE SC SCH ×4 (08:01→20:13)
[2022-07-18] MEDS: cefUROXime axetil 500 MG TAB PO SCH ×2 (08:03→17:21)
[2022-07-18] MEDS: amLODIPine BESYLATE 5 MG TAB PO SCH (08:05)
[2022-07-18] MEDS: carvediloL 6.25 MG TAB PO SCH ×2 (08:05→20:43)
[2022-07-18] MEDS: DOCUSATE SODIUM 100 MG CAP PO SCH ×2 (08:06→20:43)
[2022-07-18] MEDS: ENOXAPARIN INJ 40 MG/0.4 ML SYR SQ SCH ×2 (08:06→20:49)
[2022-07-18] MEDS: FLUTICASONE/VILANTEROL 100/25MCG 14 PUFFS/INHALER INH SCH (08:06)
[2022-07-18] MEDS: CHOLECALCIFEROL 400 UNITS 10 MCG TAB PO SCH (08:06)
[2022-07-18] MEDS: FUROSEMIDE 40 MG TAB PO SCH (08:07)
[2022-07-18] MEDS: LIDOCAINE 5% 1 PATCH TD SCH (08:07)
[2022-07-18] MEDS: CEROVITE ADV FORMULA TAB PO SCH (08:07)
[2022-07-18] MEDS: NYSTATIN POWDER 15GM BTL EXT SCH ×3 (08:07→20:42)
[2022-07-18] MEDS: predniSONE 10 MG TABLET PO SCH (08:08)
[2022-07-18] MEDS: PANTOprazole 40 MG TAB PO SCH ×2 (08:08→20:43)
[2022-07-18] MEDS: SPIRONOLACTONE 25 MG TAB PO SCH (08:08)
--- NOTE | 2022-07-18 11:57 | Critical Care Progress Note ---
Date of Service July 18, 2022 Assessment & Plan (1) Respiratory failure: (2) Hypoxia: (3) COPD (chronic obstructive pulmonary disease): (4) NAFLD (nonalcoholic fatty liver disease): (5) Type 2 diabetes mellitus with albuminuria: (6) Acute on chronic right-sided congestive heart failure: (7) Severe obesity (BMI >= 40): (8) Chronic kidney disease: (9) CARLITOS (obstructive sleep apnea): Plan Reason Critically Ill: 52 YOM presented with complaints of increased dyspnea, was emergently intubated in EMD for failure on BiPAP in the setting of hypercarbic and hypoxic respiratory failure in a morbidly obese male. WIll admit to ICU continue diuresing as well as continued steroid and nebulizers for his COPD Neuro - Metabolic encephalopathy, resolved Cardiac -acute on chronic right-sided congestive heart failure -Cardiology signed off Lasix 40 twice daily with spironolactone 25 mg daily Coreg 6.25 mg twice daily Hypertension -amlodipine 5 mg daily -Consider addition of lisinopril -Add fluid restriction Respiratory - COPD exacerbation, hypercarbic respiratory failure, hypoxic respiratory failure requiring intubation and mechanical ventilation, CARLITOS, obesity hypoventilation syndrome - ABG with notable hypercarbia, body habitus makes physical exam very limited to non-existent to appreciate wheezes or air movement - COVID/FLU/RSV negative- -change steroids to oral prednisone taper -60+ pack year smoking history, discontinued approximately 9 years ago -wean BiPAP as able GI -hyperlipidemia -Atorvastatin 40 mg daily Bowel regimen: Colace 100 mg twice daily -Speech therapy consult to clear for p.o. Hypertriglyceridemia -On daily statin RENAL/LYTES - CKD - 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 -Improved Creatinine, continue diuresis with additional Bumex 1mg IV BID in addition to daily meds - No acute needs - Paulino to gravity ENDO - DMII, Hypothyroidism - ICU hyperglycemic protocol HEME - DVT prophylaxis: Lovenox 40 mg subcu every 12 hours ID -1 out of 2 blood cultures demonstrating staphylococcal species -Repeat blood cultures show no growth to date, no obvious finding on echocardiogram, I believe these blood cultures to represent skin contamination Bronchoscopy report: MSSA -Transition from IV Rocephin to oral Ceftin for total 7 days effective therapy for presumptive COPD exacerbation LINES/IV ACCESS - PIV, Paulino, discontinue central line DISPO: Stable for downgrade out of ICU Admission and Anticipated Discharge Date Admission Date: July 13, 2022 Subjective Doing well, feels better than yesterday. Able to tolerate little longer off BiPAP. However rapidly desaturates into the mid 80s off BiPAP. Physical Exam Physical Exam: General: Alert. nontoxic. Skin: Warm, dry, Head: Atraumatic Ears, nose, mouth and throat: BiPAP mask present Cardiovascular: Normal peripheral perfusion Respiratory: no respiratory distress Gastrointestinal: Non distended Musculoskeletal: No deformity Results & Data Results & Data Vital Signs (Past 12 Hours) Vital Signs Temp Pulse Resp BP Pulse Ox O2 Del Method O2 Flow Rate 07/18/22 11:00 37.4 C 60 20 127/71 96 BiPAP 7 07/18/22 10:00 37.1 C 60 19 132/71 94 BiPAP 7 07/18/22 09:01 37.1 C 72 19 140/74 92 BiPAP 7 07/18/22 08:00 37.2 C 70 21 143/79 H 91 BiPAP 7 07/18/22 07:01 37.2 C 58 L 18 135/72 90 BiPAP 7 07/18/22 08:00 BiPAP 7 07/18/22 06:01 140/67 07/18/22 06:01 37.2 C 53 L 16 95 07/18/22 06:00 37.2 C 55 L 17 95 07/18/22 05:01 37.2 C 56 L 19 94 07/18/22 05:01 136/77 07/18/22 05:00 37.2 C 61 19 95 07/18/22 04:01 130/68 07/18/22 04:01 37.1 C 51 L 15 95 07/18/22 04:00 37.1 C 52 L 18 96 07/18/22 03:01 37.0 C 53 L 16 93 07/18/22 03:01 129/70 07/18/22 03:00 37.0 C 54 L 18 93 07/18/22 02:01 37.0 C 54 L 15 92 07/18/22 02:01 123/66 07/18/22 02:00 37.0 C 55 L 17 92 07/18/22 01:01 37.0 C 61 17 91 07/18/22 01:01 137/69 07/18/22 01:00 37.0 C 67 18 93 07/18/22 00:01 37.1 C 60 16 91 07/18/22 00:01 130/64 07/18/22 00:00 37.1 C 58 L 17 91 Critical Care Results & Data Vital Signs (Past 12 Hours) Vital Signs Temp Pulse Resp BP Pulse Ox O2 Del Method O2 Flow Rate 07/18/22 13:01 37.5 C 75 12 142/86 H 92 BiPAP 7 07/18/22 12:00 37.3 C 71 16 140/77 93 BiPAP 7 07/18/22 11:00 37.4 C 60 20 127/71 96 BiPAP 7 07/18/22 10:00 37.1 C 60 19 132/71 94 BiPAP 7 07/18/22 09:01 37.1 C 72 19 140/74 92 BiPAP 7 07/18/22 08:00 37.2 C 70 21 143/79 H 91 BiPAP 7 07/18/22 07:01 37.2 C 58 L 18 135/72 90 BiPAP 7 07/18/22 08:00 BiPAP 7 07/18/22 06:01 140/67 07/18/22 06:01 37.2 C 53 L 16 95 07/18/22 06:00 37.2 C 55 L 17 95 07/18/22 05:01 37.2 C 56 L 19 94 07/18/22 05:01 136/77 07/18/22 05:00 37.2 C 61 19 95 07/18/22 04:01 130/68 07/18/22 04:01 37.1 C 51 L 15 95 07/18/22 04:00 37.1 C 52 L 18 96 07/18/22 03:01 37.0 C 53 L 16 93 07/18/22 03:01 129/70 07/18/22 03:00 37.0 C 54 L 18 93 Lab & Micro Results (Past 24 Hours) RBC 4.75 M/uL (4.70-6.10) 07/18/22 WBC 8.57 K/ul (4.8-10.8) 07/18/22 Hgb 13.3 g/dl (14.0-18.0) L 07/18/22 Hct 43.2 % (42.0-52.0) 07/18/22 MCV 90.9 fL (80.0-100.0) 07/18/22 MCH 28.0 pg (25.0-34.0) 07/18/22 MCHC 30.8 g/dL (32.0-36.0) L 07/18/22 RDW Standard Deviation 50.4 fL (36.4-46.3) H 07/18/22 RDW Coefficient of Variation 15.4 % (11.5-14.5) H 07/18/22 Plt Count 241 K/uL (130-400) 07/18/22 MPV 10.2 fL (9.4-12.4) 07/18/22 Neutrophils (%) (Auto) 72.3 % 07/18/22 Lymphocytes (%) (Auto) 16.9 % 07/18/22 Monocytes # (Auto) 0.84 K/uL (0.11-0.59) H 07/18/22 Eosinophils # (Auto) 0.07 K/uL (0-0.50) 07/18/22 Immature Granulocyte % (Auto) 0.2 % 07/18/22 Neutrophils # (Auto) 6.19 K/uL (1.40-6.50) 07/18/22 Lymphocytes # (Auto) 1.45 K/uL (1.2-3.4) 07/18/22 Monocytes # (Auto) 0.84 K/uL (0.11-0.59) H 07/18/22 Eosinophils # (Auto) 0.07 K/uL (0-0.50) 07/18/22 Basophils # (Auto) 0.00 K/uL (0-0.2) 07/18/22 Immature Granulocyte # (Auto) 0.02 K/uL (0.01-0.20) 3 Na 138 mmol/L (136-145) 07/18/22 K 4.2 mmol/L (3.5-5.1) 07/18/22 Cl 91 mmol/L (98-107) L 07/18/22 CO2 42 mmol/L (21-32) H* 07/18/22 Anion Gap 5 (3-11) 07/18/22 BUN 36 mg/dl (6-23) H 07/18/22 Creatinine 1.08 mg/dl (0.6-1.4) 07/18/22 Estimated GFR ( Amer) 90.3 ml/min 07/18/22 Estimated GFR (Non-Af Amer) 77.9 ml/min 07/18/22 BUN/Creatinine Ratio 33.3 (10-20) H 07/18/22 Glu 87 mg/dl (70-99(Fasting)) 07/18/22 Ca 9.1 mg/dl (8.6-10.3) 07/18/22 Phosphorus Level 3.4 mg/dl (2.5-4.9) 07/18/22 Mg 2.0 mg/dl (1.7-2.4) 07/18/22 05:34 Calcium Level 9.1 mg/dl (8.6-10.3) 07/18/22 05:34 Ionized Calcium 1.08 mmol/L (1.12-1.32) L 07/18/22 05:34 Microbiology 07/15/22 10:42 Aerobic Blood Culture - Preliminary Blood No growth in Aerobic bottle after 48 hours. Anaerobic Blood Culture - Final 07/15/22 10:36 Aerobic Blood Culture - Preliminary Blood No growth in Aerobic bottle after 48 hours. Anaerobic Blood Culture - Preliminary No growth in Anaerobic bottle after 48 hours. I & O Totals 24 Hours 07/17/22 07/18/22 07/19/22 06:59 06:59 06:59 Intake Total 547.413 / 547.413 60 / 60 Output Total 2925 / 2925 4060 / 4060 1030 / 1030 Balance -2377.587 / -2377.587 -4060 / -4060 -970 / -970 Cumulative 07/13/22 15:02 thru 07/18/22 13:17 Intake Total 5152.408 Output Total 56096 Balance -8367.592 RT Ventilator Mngmt (Last Documented) Ventilator Ordered Settings Ventilator Support Mode CPAP 07/16/22 10:05 Respiratory Rate 12 07/18/22 13:01 Ventilator Tidal Volume 450 07/16/22 09:57 Setting Minute Ventilation 7.5 07/16/22 10:05 Ventilator Positive Pressure 12 07/16/22 10:05 Support Setting Positive End Expiratory 6 07/16/22 10:05 Pressure Fraction of Inspired Oxygen 50 07/16/22 13:46 Peak Inspiratory Flow 36 07/15/22 15:15 Machine Comment Placed on CPAP per Dr. De La Vega 07/16/22 10:05 Ventilator - PT Measurements Respiratory Rate 12 Exhaled Tidal Volume 557 Minute Ventilation 7.5 Peak Inspiratory Airway 20 Pressure Plateau Pressure 21 Respiratory Cycle Inspiratory: 1:2.8 Expiratory Ratio Inspiratory Phase Time 1.26 End-Tidal CO2 53 Static Lung Compliance 41.09 Dynamic Lung Compliance 39.79 Normal Static Lung Compliance 48.00 Patient Measurements Comment Patient extubated to BIPAP 03/03 50% Coding Level of Care Code 33796 SUB INP/OBS CARE 3/50MIN Diagnoses Respiratory failure J96.01; J96.02; J96.02 Chronicity: acute Respiratory failure complication: hypoxia and hypercapnia Hypoxia R09.02 COPD (chronic obstructive pulmonary disease) J44.9 COPD type: unspecified COPD NAFLD (nonalcoholic fatty liver disease) K76.0 Type 2 diabetes mellitus with albuminuria E11.29; R80.9 Acute on chronic right-sided congestive heart failure I50.813 Severe obesity (BMI >= 40) E66.01 Chronic kidney disease N18.9 CARLITOS (obstructive sleep apnea) G47.33 (1) Respiratory failure Chronicity: acute Respiratory failure complication: hypoxia and hypercapnia Qualified Code(s): J96.01 - Acute respiratory failure with hypoxia; J96.02 - Acute respiratory failure with hypercapnia; J96.02 - Acute respiratory failure with hypercapnia (3) COPD (chronic obstructive pulmonary disease) COPD type: unspecified COPD Qualified Code(s): J44.9 - Chronic obstructive pulmonary disease, unspecified
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
[2022-07-18] MEDS ORDERED: ALBUTEROL HFA 8 GM INHALER INH PRN (15:04)
[2022-07-18] MEDS: FUROSEMIDE 40 MG/4 ML VIAL IV SCH (15:17)
[2022-07-18] MEDS: LANTUS PER UNIT CHARGE SQ SCH (20:42)
[2022-07-18] MEDS: ATORVASTATIN 40 MG TAB PO SCH (20:43)
[2022-07-18] MEDS ORDERED: NON-FORMULARY MEDICATION (Omeprazole 20 mg capsule,delayed release(DR/EC)) PO SCH (21:00)
[2022-07-19] MEDS: LEVOTHYROXINE SODIUM 200 MCG TABLET PO SCH (06:08)
[2022-07-19] MEDS: INSULIN ASPART PER UNIT CHARGE SC SCH ×4 (07:48→20:38)
[2022-07-19] MEDS: DOCUSATE SODIUM 100 MG CAP PO SCH ×2 (08:05→21:04)
[2022-07-19] MEDS: carvediloL 6.25 MG TAB PO SCH ×2 (08:06→20:57)
[2022-07-19] MEDS: predniSONE 10 MG TABLET PO SCH (08:06)
[2022-07-19] MEDS: amLODIPine BESYLATE 5 MG TAB PO SCH (08:06)
[2022-07-19] MEDS: SPIRONOLACTONE 25 MG TAB PO SCH (08:06)
[2022-07-19] MEDS: CHOLECALCIFEROL 400 UNITS 10 MCG TAB PO SCH (08:06)
[2022-07-19] MEDS: CEROVITE ADV FORMULA TAB PO SCH (08:06)
[2022-07-19] MEDS: cefUROXime axetil 500 MG TAB PO SCH ×2 (08:06→16:49)
[2022-07-19] MEDS: FLUTICASONE/VILANTEROL 100/25MCG 14 PUFFS/INHALER INH SCH (08:07)
[2022-07-19] MEDS: ENOXAPARIN INJ 40 MG/0.4 ML SYR SQ SCH ×2 (08:07→20:59)
[2022-07-19] MEDS: NYSTATIN POWDER 15GM BTL EXT SCH ×3 (08:07→20:57)
[2022-07-19] MEDS: LIDOCAINE 5% 1 PATCH TD SCH (08:07)
[2022-07-19] MEDS: FUROSEMIDE 40 MG/4 ML VIAL IV SCH ×2 (08:08→17:10)
[2022-07-19] MEDS: lisinopril 40 MG TAB PO SCH (09:17)
[2022-07-19] MEDS: PANTOprazole 40 MG TAB PO SCH ×2 (09:17→20:58)
--- NOTE | 2022-07-19 09:26 | XRay Report ---
XR chest 1V portable HISTORY: 52 years-old Male CHF acute shortness of breath COMPARISON: 07/17/2022 TECHNIQUE: AP view of the chest FINDINGS: Cardiac silhouette is enlarged. Pulmonary vascular congestion with interstitial coarsening. No pneumo thorax. Small pleural effusions with mild bibasilar consolidation again noted. Interval removal of th e right IJ central venous catheter. Bones appear grossly intact. IMPRESSION: 1. Cardiomegaly with unchanged pulmonary edema. 2. Unchanged small pleural effusions with persistent bibasilar consolidation. 3. Status post removal of the right IJ central venous catheter. ACT 112: Negative or not required by law. The above report was generated using voice recognition software. It may contain grammatical, syntax o r spelling errors. Electronically signed by: Jerrod Gale M.D. 07/19/2022 9:24 AM
[2022-07-19 11:18] LABS: BUN Creatinine Ratio 40.7 (10-20); Calcium 9.6 mg/dl (8.6-10.3); Creatinine Clr Calc Pharmacy 140.5 ml/min; Est GFR (African American) 111.1 ml/min; Est GFR (Non-African American) 95.9 ml/min; Potassium 3.9 mmol/L (3.5-5.1)
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
[2022-07-19] MEDS: ATORVASTATIN 40 MG TAB PO SCH (20:59)
[2022-07-19] MEDS ORDERED: ACETAMINOPHEN 325 MG TAB PO PRN (21:14)
[2022-07-20] MEDS: LEVOTHYROXINE SODIUM 200 MCG TABLET PO SCH (06:09)
[2022-07-20] MEDS: CHOLECALCIFEROL 400 UNITS 10 MCG TAB PO SCH (07:39)
[2022-07-20] MEDS: CEROVITE ADV FORMULA TAB PO SCH (07:39)
[2022-07-20] MEDS: lisinopril 40 MG TAB PO SCH (07:39)
[2022-07-20] MEDS: ENOXAPARIN INJ 40 MG/0.4 ML SYR SQ SCH ×2 (07:39→20:58)
[2022-07-20] MEDS: DOCUSATE SODIUM 100 MG CAP PO SCH ×2 (07:40→21:02)
[2022-07-20] MEDS: amLODIPine BESYLATE 5 MG TAB PO SCH (07:40)
[2022-07-20] MEDS: FLUTICASONE/VILANTEROL 100/25MCG 14 PUFFS/INHALER INH SCH (07:40)
[2022-07-20] MEDS: NYSTATIN POWDER 15GM BTL EXT SCH ×3 (07:41→20:57)
[2022-07-20] MEDS: DICLOFENAC SOD 1% GEL 100 GM TUBE EXT SCH ×3 (07:41→20:58)
[2022-07-20] MEDS: predniSONE 10 MG TABLET PO SCH (07:42)
[2022-07-20] MEDS: carvediloL 6.25 MG TAB PO SCH ×2 (07:42→20:57)
[2022-07-20] MEDS: PANTOprazole 40 MG TAB PO SCH ×2 (07:43→20:57)
[2022-07-20] MEDS: cefUROXime axetil 500 MG TAB PO SCH ×2 (07:43→17:26)
[2022-07-20] MEDS: SPIRONOLACTONE 25 MG TAB PO SCH (07:43)
[2022-07-20] MEDS: LIDOCAINE 5% 1 PATCH TD SCH (07:45)
[2022-07-20] MEDS: FUROSEMIDE 40 MG/4 ML VIAL IV SCH ×2 (07:59→19:00)
[2022-07-20] MEDS: INSULIN ASPART PER UNIT CHARGE SC SCH ×4 (08:04→20:32)
[2022-07-20 08:46] LABS: BUN Creatinine Ratio 36.6 (10-20); Calcium 9.6 mg/dl (8.6-10.3); Creatinine Clr Calc Pharmacy 131.4 ml/min; Est GFR (African American) 108.2 ml/min; Est GFR (Non-African American) 93.4 ml/min; Phosphorus 3.4 mg/dl (2.5-4.9); Potassium 3.7 mmol/L (3.5-5.1)
[2022-07-20] MEDS ORDERED: FUROSEMIDE 40 MG/4 ML VIAL IV SCH (17:30)
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
[2022-07-20] MEDS: ATORVASTATIN 40 MG TAB PO SCH (20:57)
[2022-07-21] MEDS: LEVOTHYROXINE SODIUM 200 MCG TABLET PO SCH (06:33)
[2022-07-21 06:57] LABS: Basophils # (auto) 0.01 K/uL (0-0.2); Basophils % (auto) 0.1 %; Eosinophils # (auto) 0.52 K/uL (0-0.50); Eosinophils % (auto) 4.3 %; Hematocrit (blood only) 44.6 % (42.0-52.0); Hemoglobin 14.5 g/dl (14.0-18.0); Immature Granulocytes # (auto) 0.04 K/uL (0.01-0.20); Immature Granulocytes % (auto) 0.3 %; Lymphocytes # (auto) 2.06 K/uL (1.2-3.4); Lymphocytes % (auto) 16.9 %; Mean Corpuscular Hemoglobin 28.5 pg (25.0-34.0); Mean Corpuscular Hgb Conc 32.5 g/dL (32.0-36.0); Mean Corpuscular Volume 87.6 fL (80.0-100.0); Mean Platelet Volume 10.6 fL (9.4-12.4); Monocytes # (auto) 1.07 K/uL (0.11-0.59); Monocytes % (auto) 8.8 %; Neutrophils # (auto) 8.46 K/uL (1.40-6.50); Neutrophils % (auto) 69.6 %; Platelet Count 290 K/uL (130-400); RDW Coefficient of Variation 15.1 % (11.5-14.5); Red Blood Count 5.09 M/uL (4.70-6.10); White Blood Count 12.16 K/ul (4.8-10.8)
[2022-07-21 07:18] LABS: Calcium 9.6 mg/dl (8.6-10.3); Creatinine Clr Calc Pharmacy 109.1 ml/min; Est GFR (African American) 86.5 ml/min; Est GFR (Non-African American) 74.6 ml/min; Magnesium 2.1 mg/dl (1.7-2.4); Potassium 4.1 mmol/L (3.5-5.1)
--- NOTE | 2022-07-21 08:22 | XRay Report ---
XR chest 1V portable CLINICAL HISTORY: f/u pulm edema,hypoxia TECHNIQUE: Single frontal radiograph of the chest was obtained. Comparison: Comparison is made to chest radiograph 07/19/2022 FINDINGS: Exam is limited by underpenetration. Cardiomegaly is noted. Prominence and cephalization of the vascu lature is seen. Small bilateral pleural effusions are seen. IMPRESSION: Mild pulmonary edema is improved from prior exam. Stable cardiomegaly and small bilateral pleural eff usions. ACT 112: Negative or not required by law. Electronically signed by: Otto Bruner M.D. 07/21/2022 8:21 AM
[2022-07-21] MEDS: INSULIN ASPART PER UNIT CHARGE SC SCH ×4 (08:56→20:40)
[2022-07-21] MEDS: amLODIPine BESYLATE 5 MG TAB PO SCH (08:57)
[2022-07-21] MEDS: SPIRONOLACTONE 25 MG TAB PO SCH (08:57)
[2022-07-21] MEDS: PANTOprazole 40 MG TAB PO SCH ×2 (08:58→21:07)
[2022-07-21] MEDS: cefUROXime axetil 500 MG TAB PO SCH ×2 (08:58→17:06)
[2022-07-21] MEDS: carvediloL 6.25 MG TAB PO SCH ×2 (08:58→21:06)
[2022-07-21] MEDS: CEROVITE ADV FORMULA TAB PO SCH (08:59)
[2022-07-21] MEDS: lisinopril 40 MG TAB PO SCH (08:59)
[2022-07-21] MEDS: CHOLECALCIFEROL 400 UNITS 10 MCG TAB PO SCH (08:59)
[2022-07-21] MEDS: ENOXAPARIN INJ 40 MG/0.4 ML SYR SQ SCH ×2 (09:00→21:07)
[2022-07-21] MEDS: predniSONE 10 MG TABLET PO SCH (09:00)
[2022-07-21] MEDS: NYSTATIN POWDER 15GM BTL EXT SCH ×3 (09:01→21:07)
[2022-07-21] MEDS: DICLOFENAC SOD 1% GEL 100 GM TUBE EXT SCH ×3 (09:01→21:07)
[2022-07-21] MEDS: LIDOCAINE 5% 1 PATCH TD SCH (09:01)
[2022-07-21] MEDS: FLUTICASONE/VILANTEROL 100/25MCG 14 PUFFS/INHALER INH SCH (09:01)
[2022-07-21] MEDS: DOCUSATE SODIUM 100 MG CAP PO SCH ×2 (09:06→21:05)
[2022-07-21] MEDS: FUROSEMIDE INJ 20 MG/2 ML VIAL IV SCH ×2 (09:58→17:06)
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
[2022-07-21] MEDS: ATORVASTATIN 40 MG TAB PO SCH (21:07)
[2022-07-22] MEDS: LEVOTHYROXINE SODIUM 200 MCG TABLET PO SCH (06:18)
[2022-07-22] MEDS: PANTOprazole 40 MG TAB PO SCH ×2 (08:14→20:13)
[2022-07-22] MEDS: INSULIN ASPART PER UNIT CHARGE SC SCH ×4 (08:14→20:28)
[2022-07-22] MEDS: CHOLECALCIFEROL 400 UNITS 10 MCG TAB PO SCH (08:15)
[2022-07-22] MEDS: lisinopril 40 MG TAB PO SCH (08:15)
[2022-07-22] MEDS: CEROVITE ADV FORMULA TAB PO SCH (08:15)
[2022-07-22] MEDS: SPIRONOLACTONE 25 MG TAB PO SCH (08:15)
[2022-07-22] MEDS: FLUTICASONE/VILANTEROL 100/25MCG 14 PUFFS/INHALER INH SCH (08:16)
[2022-07-22] MEDS: carvediloL 6.25 MG TAB PO SCH ×2 (08:16→20:13)
[2022-07-22] MEDS: amLODIPine BESYLATE 5 MG TAB PO SCH (08:16)
[2022-07-22] MEDS: ENOXAPARIN INJ 40 MG/0.4 ML SYR SQ SCH ×2 (08:16→20:13)
[2022-07-22] MEDS: NYSTATIN POWDER 15GM BTL EXT SCH ×3 (08:17→20:13)
[2022-07-22] MEDS: LIDOCAINE 5% 1 PATCH TD SCH (08:17)
[2022-07-22] MEDS: DICLOFENAC SOD 1% GEL 100 GM TUBE EXT SCH ×3 (08:18→20:13)
[2022-07-22] MEDS: DOCUSATE SODIUM 100 MG CAP PO SCH ×2 (08:18→20:13)
[2022-07-22 10:05] LABS: BUN Creatinine Ratio 43.4 (10-20); Calcium 9.2 mg/dl (8.6-10.3); Creatinine Clr Calc Pharmacy 89.8 ml/min; Est GFR (African American) 68.4 ml/min; Magnesium 2.2 mg/dl (1.7-2.4)
[2022-07-22] MEDS ORDERED: FUROSEMIDE 40 MG/4 ML VIAL IV ONE (12:36)
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
[2022-07-22] MEDS: ATORVASTATIN 40 MG TAB PO SCH (20:12)
[2022-07-23] MEDS: LEVOTHYROXINE SODIUM 200 MCG TABLET PO SCH (06:30)
[2022-07-23] MEDS: amLODIPine BESYLATE 5 MG TAB PO SCH (08:13)
[2022-07-23] MEDS: CHOLECALCIFEROL 400 UNITS 10 MCG TAB PO SCH (08:13)
[2022-07-23] MEDS: CEROVITE ADV FORMULA TAB PO SCH (08:13)
[2022-07-23] MEDS: PANTOprazole 40 MG TAB PO SCH ×2 (08:13→20:03)
[2022-07-23] MEDS: SPIRONOLACTONE 25 MG TAB PO SCH (08:13)
[2022-07-23] MEDS: lisinopril 40 MG TAB PO SCH (08:13)
[2022-07-23] MEDS: NYSTATIN POWDER 15GM BTL EXT SCH ×3 (08:14→20:03)
[2022-07-23] MEDS: ENOXAPARIN INJ 40 MG/0.4 ML SYR SQ SCH ×2 (08:14→20:02)
[2022-07-23] MEDS: FLUTICASONE/VILANTEROL 100/25MCG 14 PUFFS/INHALER INH SCH (08:15)
[2022-07-23] MEDS: DICLOFENAC SOD 1% GEL 100 GM TUBE EXT SCH ×3 (08:15→20:02)
[2022-07-23] MEDS: carvediloL 6.25 MG TAB PO SCH ×2 (08:15→20:03)
[2022-07-23] MEDS: LIDOCAINE 5% 1 PATCH TD SCH (08:16)
[2022-07-23] MEDS: DOCUSATE SODIUM 100 MG CAP PO SCH ×2 (08:20→20:04)
[2022-07-23] MEDS: INSULIN ASPART PER UNIT CHARGE SC SCH ×4 (08:25→20:47)
[2022-07-23 08:56] LABS: BUN Creatinine Ratio 53.5 (10-20); Calcium 8.8 mg/dl (8.6-10.3); Creatinine Clr Calc Pharmacy 96.9 ml/min; Est GFR (African American) 74.3 ml/min; Est GFR (Non-African American) 64.1 ml/min; Potassium 4.2 mmol/L (3.5-5.1)
[2022-07-23] MEDS: FUROSEMIDE 40 MG TAB PO SCH ×2 (10:40→17:01)
[2022-07-23] MEDS: ATORVASTATIN 40 MG TAB PO SCH (20:03)
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
[2022-07-24] MEDS: LEVOTHYROXINE SODIUM 200 MCG TABLET PO SCH (06:14)
[2022-07-24] MEDS: SPIRONOLACTONE 25 MG TAB PO SCH (07:56)
[2022-07-24] MEDS: CEROVITE ADV FORMULA TAB PO SCH (07:56)
[2022-07-24] MEDS: carvediloL 6.25 MG TAB PO SCH ×2 (07:57→20:14)
[2022-07-24] MEDS: FUROSEMIDE 40 MG TAB PO SCH ×2 (07:57→17:35)
[2022-07-24] MEDS: amLODIPine BESYLATE 5 MG TAB PO SCH (07:57)
[2022-07-24] MEDS: lisinopril 40 MG TAB PO SCH (07:57)
[2022-07-24] MEDS: CHOLECALCIFEROL 400 UNITS 10 MCG TAB PO SCH (07:57)
[2022-07-24] MEDS: PANTOprazole 40 MG TAB PO SCH ×2 (07:58→20:15)
[2022-07-24] MEDS: ENOXAPARIN INJ 40 MG/0.4 ML SYR SQ SCH ×2 (07:58→20:38)
[2022-07-24] MEDS: LIDOCAINE 5% 1 PATCH TD SCH (07:58)
[2022-07-24] MEDS: DICLOFENAC SOD 1% GEL 100 GM TUBE EXT SCH ×3 (07:58→20:13)
[2022-07-24] MEDS: FLUTICASONE/VILANTEROL 100/25MCG 14 PUFFS/INHALER INH SCH (07:58)
[2022-07-24] MEDS: NYSTATIN POWDER 15GM BTL EXT SCH ×3 (07:59→20:14)
[2022-07-24 08:03] LABS: Basophils # (auto) 0.03 K/uL (0-0.2); Basophils % (auto) 0.4 %; Eosinophils % (auto) 4.8 %; Hematocrit (blood only) 44.1 % (42.0-52.0); Hemoglobin 13.7 g/dl (14.0-18.0); Immature Granulocytes # (auto) 0.03 K/uL (0.01-0.20); Immature Granulocytes % (auto) 0.4 %; Lymphocytes # (auto) 1.55 K/uL (1.2-3.4); Lymphocytes % (auto) 18.7 %; Mean Corpuscular Hemoglobin 28.1 pg (25.0-34.0); Mean Corpuscular Hgb Conc 31.1 g/dL (32.0-36.0); Mean Corpuscular Volume 90.6 fL (80.0-100.0); Mean Platelet Volume 10.7 fL (9.4-12.4); Monocytes % (auto) 8.4 %; Neutrophils # (auto) 5.59 K/uL (1.40-6.50); Neutrophils % (auto) 67.3 %; Platelet Count 313 K/uL (130-400); RDW Coefficient of Variation 15.3 % (11.5-14.5); RDW Standard Deviation 50.6 fL (36.4-46.3); Red Blood Count 4.87 M/uL (4.70-6.10)
[2022-07-24] MEDS: INSULIN ASPART PER UNIT CHARGE SC SCH ×4 (08:07→20:29)
[2022-07-24] MEDS: DOCUSATE SODIUM 100 MG CAP PO SCH ×2 (08:07→20:15)
[2022-07-24 08:20] LABS: Calcium 9.4 mg/dl (8.6-10.3); Creatinine Clr Calc Pharmacy 99.9 ml/min; Est GFR (African American) 76.4 ml/min; Magnesium 2.2 mg/dl (1.7-2.4); Potassium 4.9 mmol/L (3.5-5.1)
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
[2022-07-24] MEDS: ATORVASTATIN 40 MG TAB PO SCH (20:14)
[2022-07-25] MEDS: LEVOTHYROXINE SODIUM 200 MCG TABLET PO SCH (06:30)
[2022-07-25] MEDS: DICLOFENAC SOD 1% GEL 100 GM TUBE EXT SCH ×3 (07:59→20:19)
[2022-07-25] MEDS: NYSTATIN POWDER 15GM BTL EXT SCH ×3 (08:00→20:19)
[2022-07-25] MEDS: LIDOCAINE 5% 1 PATCH TD SCH (08:00)
[2022-07-25] MEDS: FLUTICASONE/VILANTEROL 100/25MCG 14 PUFFS/INHALER INH SCH (08:00)
[2022-07-25] MEDS: carvediloL 6.25 MG TAB PO SCH ×2 (08:01→20:21)
[2022-07-25] MEDS: CHOLECALCIFEROL 400 UNITS 10 MCG TAB PO SCH (08:02)
[2022-07-25] MEDS: CEROVITE ADV FORMULA TAB PO SCH (08:02)
[2022-07-25] MEDS: PANTOprazole 40 MG TAB PO SCH ×2 (08:02→20:20)
[2022-07-25] MEDS: INSULIN ASPART PER UNIT CHARGE SC SCH ×4 (08:08→20:39)
[2022-07-25] MEDS: ENOXAPARIN INJ 40 MG/0.4 ML SYR SQ SCH ×2 (08:41→20:20)
[2022-07-25] MEDS: SPIRONOLACTONE 25 MG TAB PO SCH (08:42)
[2022-07-25] MEDS: DOCUSATE SODIUM 100 MG CAP PO SCH ×2 (08:42→20:21)
[2022-07-25] MEDS: lisinopril 40 MG TAB PO SCH (08:43)
[2022-07-25] MEDS: FUROSEMIDE 40 MG TAB PO SCH (08:43)
[2022-07-25] MEDS: amLODIPine BESYLATE 5 MG TAB PO SCH (08:43)
[2022-07-25 09:04] LABS: BUN Creatinine Ratio 45.3 (10-20); Calcium 9.3 mg/dl (8.6-10.3); Est GFR (African American) 92.4 ml/min; Est GFR (Non-African American) 79.7 ml/min; Potassium 4.6 mmol/L (3.5-5.1)
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
[2022-07-25] MEDS: TORSEMIDE 10 MG TAB PO SCH (17:03)
[2022-07-25] MEDS: ATORVASTATIN 40 MG TAB PO SCH (20:20)
[2022-07-26] MEDS: LEVOTHYROXINE SODIUM 200 MCG TABLET PO SCH (06:02)
[2022-07-26 07:42] LABS: Basophils # (auto) 0.04 K/uL (0-0.2); Basophils % (auto) 0.4 %; Eosinophils # (auto) 0.39 K/uL (0-0.50); Eosinophils % (auto) 4.2 %; Hematocrit (blood only) 41.1 % (42.0-52.0); Hemoglobin 12.8 g/dl (14.0-18.0); Immature Granulocytes # (auto) 0.02 K/uL (0.01-0.20); Immature Granulocytes % (auto) 0.2 %; Lymphocytes # (auto) 1.56 K/uL (1.2-3.4); Lymphocytes % (auto) 16.8 %; Mean Corpuscular Hemoglobin 28.1 pg (25.0-34.0); Mean Corpuscular Hgb Conc 31.1 g/dL (32.0-36.0); Mean Corpuscular Volume 90.1 fL (80.0-100.0); Mean Platelet Volume 10.4 fL (9.4-12.4); Monocytes % (auto) 8.6 %; Neutrophils # (auto) 6.47 K/uL (1.40-6.50); Neutrophils % (auto) 69.8 %; Platelet Count 276 K/uL (130-400); RDW Coefficient of Variation 15.4 % (11.5-14.5); RDW Standard Deviation 50.2 fL (36.4-46.3); Red Blood Count 4.56 M/uL (4.70-6.10); White Blood Count 9.28 K/ul (4.8-10.8)
[2022-07-26 07:59] LABS: BUN Creatinine Ratio 40.8 (10-20); Creatinine Clr Calc Pharmacy 95.5 ml/min; Est GFR (African American) 72.2 ml/min; Est GFR (Non-African American) 62.3 ml/min; Magnesium 1.8 mg/dl (1.7-2.4); Potassium 4.7 mmol/L (3.5-5.1)
[2022-07-26] MEDS: INSULIN ASPART PER UNIT CHARGE SC SCH ×4 (09:22→20:40)
[2022-07-26] MEDS: LIDOCAINE 5% 1 PATCH TD SCH (09:24)
[2022-07-26] MEDS: CHOLECALCIFEROL 400 UNITS 10 MCG TAB PO SCH (09:24)
[2022-07-26] MEDS: lisinopril 40 MG TAB PO SCH (09:24)
[2022-07-26] MEDS: SPIRONOLACTONE 25 MG TAB PO SCH (09:24)
[2022-07-26] MEDS: CEROVITE ADV FORMULA TAB PO SCH (09:24)
[2022-07-26] MEDS: PANTOprazole 40 MG TAB PO SCH ×2 (09:24→20:30)
[2022-07-26] MEDS: amLODIPine BESYLATE 5 MG TAB PO SCH (09:24)
[2022-07-26] MEDS: NYSTATIN POWDER 15GM BTL EXT SCH ×3 (09:25→20:30)
[2022-07-26] MEDS: TORSEMIDE 10 MG TAB PO SCH (09:25)
[2022-07-26] MEDS: carvediloL 6.25 MG TAB PO SCH ×2 (09:25→20:31)
[2022-07-26] MEDS: FLUTICASONE/VILANTEROL 100/25MCG 14 PUFFS/INHALER INH SCH (09:25)
[2022-07-26] MEDS: ENOXAPARIN INJ 40 MG/0.4 ML SYR SQ SCH ×2 (09:25→20:30)
[2022-07-26] MEDS: DICLOFENAC SOD 1% GEL 100 GM TUBE EXT SCH ×3 (09:26→20:29)
[2022-07-26] MEDS: DOCUSATE SODIUM 100 MG CAP PO SCH ×2 (09:26→20:32)
[2022-07-26] MEDS ORDERED: MAGNESIUM SULFATE / D5W 1 GM/100 ML BAG IV ONE (10:45)
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
[2022-07-26] MEDS: ATORVASTATIN 40 MG TAB PO SCH (20:30)
[2022-07-27] MEDS: LEVOTHYROXINE SODIUM 200 MCG TABLET PO SCH (05:38)
[2022-07-27 07:24] LABS: BUN Creatinine Ratio 42.6 (10-20); Calcium 9.2 mg/dl (8.6-10.3); Creatinine Clr Calc Pharmacy 96.2 ml/min; Est GFR (African American) 72.9 ml/min; Est GFR (Non-African American) 62.9 ml/min; Potassium 4.6 mmol/L (3.5-5.1)
[2022-07-27] MEDS: INSULIN ASPART PER UNIT CHARGE SC SCH ×2 (08:50→12:57)
[2022-07-27] MEDS: CEROVITE ADV FORMULA TAB PO SCH (09:06)
[2022-07-27] MEDS: carvediloL 6.25 MG TAB PO SCH (09:06)
[2022-07-27] MEDS: PANTOprazole 40 MG TAB PO SCH (09:06)
[2022-07-27] MEDS: TORSEMIDE 10 MG TAB PO SCH (09:07)
[2022-07-27] MEDS: FLUTICASONE/VILANTEROL 100/25MCG 14 PUFFS/INHALER INH SCH (09:07)
[2022-07-27] MEDS: CHOLECALCIFEROL 400 UNITS 10 MCG TAB PO SCH (09:07)
[2022-07-27] MEDS: SPIRONOLACTONE 25 MG TAB PO SCH (09:07)
[2022-07-27] MEDS: amLODIPine BESYLATE 5 MG TAB PO SCH (09:07)
[2022-07-27] MEDS: ENOXAPARIN INJ 40 MG/0.4 ML SYR SQ SCH (09:07)
[2022-07-27] MEDS: lisinopril 40 MG TAB PO SCH (09:07)
[2022-07-27] MEDS: LIDOCAINE 5% 1 PATCH TD SCH (09:08)
[2022-07-27] MEDS: NYSTATIN POWDER 15GM BTL EXT SCH ×2 (09:08→12:57)
[2022-07-27] MEDS: DICLOFENAC SOD 1% GEL 100 GM TUBE EXT SCH ×2 (09:55→12:58)
[2022-07-27] MEDS: DOCUSATE SODIUM 100 MG CAP PO SCH (09:55)
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
== END 2022-07-27 14:42 | DRG 208 ==
LOC: ED 15:02 → 1E 19:04 → SUATTDRO 19:04 → 1E 19:40 → 2S 07-18 17:57

== ENCOUNTER 2023-10-02 11:22 | Inpatient (IN) ==
[2023-10-02 12:10] LABS: Basophils # (auto) 0.05 K/uL (0.00-0.20); Basophils % (auto) 0.3 %; Eosinophils # (auto) 1.68 K/uL (0.00-0.50); Eosinophils % (auto) 10.2 %; Hematocrit (blood only) 43.5 % (42.0-52.0); Hemoglobin 13.6 g/dl (14.0-18.0); Immature Granulocytes # (auto) 0.08 K/uL (0.01-0.20); Immature Granulocytes % (auto) 0.5 %; Lymphocytes % (auto) 18.2 %; Mean Corpuscular Hgb Conc 31.3 g/dL (32.0-36.0); Mean Corpuscular Volume 86.5 fL (80.0-100.0); Mean Platelet Volume 10.4 fL (9.4-12.4); Monocytes # (auto) 1.52 K/uL (0.11-0.59); Monocytes % (auto) 9.2 %; Neutrophils # (auto) 10.11 K/uL (1.40-6.50); Neutrophils % (auto) 61.6 %; Platelet Count 371 K/uL (130-400); RDW Coefficient of Variation 15.7 % (11.5-14.5); RDW Standard Deviation 49.6 fL (36.4-46.3); Red Blood Count 5.03 M/uL (4.70-6.10); White Blood Count 16.44 K/ul (4.8-10.8)
[2023-10-02 12:17] LABS: BUN Creatinine Ratio 13.1 (10-20); Bilirubin,Total 0.4 mg/dl (0.2-1.0); Calcium 9.2 mg/dl (8.6-10.3); Creatinine Clr Calc Pharmacy 37.1 ml/min; Est GFR (Non-African American) 20.7 ml/min; Potassium 4.9 mmol/L (3.5-5.1); Total Protein 7.7 gm/dl (6.0-8.3)
[2023-10-02 12:26] LABS: Base Excess VBG -1.8 mEq/L; HCO3 VBG 25 mmol/L; Oxygen Saturation VBG 60.5 %; PCO2 VBG 48 mmHg (38-50); PO2 VBG 34 mmHg; pH VBG 7.32 (7.36-7.41)
--- NOTE | 2023-10-02 12:33 | Emergency Department Note ---
Impression & Plan Hypotension, URI (acute kidney injury) ED Provider Note NAME: DANIELLE WINN AGE: 53 SEX: M : 1970 ARRIVES VIA: Walk-In INFORMANT: Patient, ED PROVIDER(S): Jannet Camarena MD CHIEF COMPLAINT: Concern for URI HPI: This is a 53-year-old male with history of diabetes, CHF, chronic hypoxic respiratory failure, presenting for nausea, vomiting and concerns for URI. Patient went to [facility] who sent him here for concerns of URI and dehydration. Patient has had 1 week history of nausea with vomiting unable to eat or drink. He notes he feels dehydrated. He has been peeing normally as he is on multiple diuretics. Otherwise he notes a new medication. Otherwise he notes no chest pain, breath, fever, chills, abdominal pain, diarrhea. He just has nausea with vomiting, no other acute symptoms that he can remember. No headache or vision changes. ROS: See above HPI for pertinent positives & negatives. A total of 10 systems reviewed and were otherwise negative. PHYSICAL EXAMINATION: General: resting comfortably in no acute distress Head: Normocephalic and atraumatic Eyes: Normal inspection, extraocular muscles intact Ear, nose, throat: Normal external exam Neck: Normal range of motion Respiratory: lungs clear to auscultation bilaterally Cardiovascular: Regular rate/rhythm, no murmur GI: soft, nontender, no guarding or rebound Extremities: nontender, moves all extremities Neuro: The patient awake and alert, appropriately conversive, no focal deficits, symmetric faces Skin: Warm, dry, and intact MEDICAL DECISION MAKING: This is a 53-year-old male presenting for nausea, vomiting and URI. Patient is currently hypotensive to the 70s/80s systolic. I alerted nursing staff and to large-bore IVs were placed at this time. Fluid cessation was started. Patient is a known CHF patient however due to his current low volume status/blood pressure, will do 1 L and reassess. No current signs of overt sepsis. Patient not diaphoretic. Heart rate is normal. -Patient blood work is reviewed showing leukocytosis up to 16. Otherwise VBG shows pH of 7.32 pH of 48. -Electrolytes are within normal limits. Creatinine is 3.21. -CT imaging shows no acute abnormality as per radiology -Consider dehydration versus new medication versus previous diuretics as possible etiology of patient's new URI -Will admit patient as he does have only 1 kidney, significant URI, persistent nausea, vomiting and now hypotension. Patient did have a second episode of hypotension which I was called to bedside. Give another 500 cc bolus with some improvement in symptoms/blood pressure now in the 100s. Differential diagnosis: Sepsis, medication side effect, dehydration, renal artery occlusion, obstructive uropathy ER treatment provided: See below Diagnostics interpreted by me: ECG: ECG independently interpreted by me with normal sinus rhythm, rate of 73, left axis deviation, normal VT, normal QRS, normal QTc, no ST segment elevations consistent with STEMI criteria Cardiac Monitoring: An order was placed for continuous cardiac monitoring. The monitor shows a rate of 87 with sinus rhythm. Laboratory studies: As stated above and show below. Imaging studies: See below. Critical Care Note: I have personally spent 65 minutes of critical care time in the direct management of this patient. This includes bedside care, interpretation of diagnostic studies, and testing, discussion with consultants, patient, and family members, and other required patient management activities. This 65 minutes is in excess of all separately billable procedures. Past Med/Surg History Problem List (Updated 10/02/23 @ 18:50 by Jannet Camarena MD) URI (acute kidney injury) (Acute) Hypotension (Acute) URI (acute kidney injury) Chronic respiratory failure with hypoxia and hypercapnia Pneumonia Trisha rash of groin Hypomagnesemia NAFLD (nonalcoholic fatty liver disease) Type 2 diabetes mellitus with albuminuria Chronic heart failure with preserved ejection fraction (HFpEF) Chronic right-sided congestive heart failure COPD (chronic obstructive pulmonary disease) Iron deficiency Diaphoresis Nocturnal hypoxemia Dependence on nocturnal oxygen therapy Anemia (Acute) Hypothyroidism Insomnia (Acute) Hypoxia (Acute) Hypertension (Chronic) Severe obesity (BMI >= 40) Type 2 diabetes mellitus with obesity Medical History Chronic headaches Morbid obesity with BMI of 50.0-59.9, adult Solitary kidney, acquired COPD (chronic obstructive pulmonary disease) Primary hypertension Obesity hypoventilation syndrome Anemia Sleep apnea CARLITOS (obstructive sleep apnea) On home oxygen therapy Chronic kidney disease Gastroesophageal reflux disease Reactive airway disease Vitamin D deficiency Hyperlipidemia Surgical History History of tooth extraction History of open reduction and internal fixation (ORIF) procedure History of colonoscopy History of esophagogastroduodenoscopy (EGD) History of wisdom tooth extraction H/O right nephrectomy (~1992) History of hernia repair Family History Mother H/O cardiac catheterization Ovarian cancer Dementia Heart disease Myocardial infarction Hypertension Asthma Family history of diabetes mellitus Sister Overdose Father Lung cancer Brother Hypertension Other Kidney disease No family history of adverse response to anesthesia Denies family history of Prostate cancer Breast cancer Colorectal cancer Social History Smoking Status: Former smoker Age Started Using Tobacco: 14; Cigarettes Per Day: 3 + packs a day near the end; Second Hand Exposure: No; Do You Dip or Chew Tobacco: No; Hx Alcohol Use: No Hx Substance Use: No Preferred Language: [place] Communication Ability: Unable Visual Impairment: Limited Hearing Ability: Normal Job Boss Required: No Beliefs That Will Affect Care: None marital status: Current Living Situation: Family Current Living Situation Comment: Lives with and son current occupational status: 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 How many Children do You have: 1 Feels Safe at Home: Yes Childhood Exposure to Second-Hand Smoke: No caffeine: Yes (coffee) Dental Care, Regularly: No Physical Activity Frequency: Does not Exercise Seatbelt Use: sometimes Sunscreen Use: No Assistive Devices: BiPap, Denture - Upper, Glasses and Oxygen - at Night Allergies Allergies Allergy/AdvReac Type Severity Reaction Status Date / Time bee pollen Allergy Intermediate swelling Verified 10/02/23 10:33 morphine Allergy Intermediate HIVES Verified 10/02/23 10:33 Cephalosporins Allergy Mild rash Verified 10/02/23 10:33 Home Meds Home Medications Medication Instructions Recorded Confirmed carvedilol 6.25 mg tablet 6.25 mg PO BID 03/27/19 10/02/23 multivitamin 1 tab PO QAM 01/10/21 10/02/23 ferrous sulfate 325 mg (65 mg 325 mg PO DAILY 11/20/21 10/02/23 iron) tablet (Feosol) cholecalciferol (vitamin D3) 10 10 mcg PO DAILY 07/13/22 10/02/23 mcg (400 unit) tablet (Vitamin D3) levothyroxine 200 mcg tablet 200 mcg PO DAILY 10/02/23 10/02/23 metformin 500 mg tablet,extended 1,500 mg PO DAILY 10/02/23 10/02/23 release 24 hr Previous Rx's Medication Instructions Recorded albuterol sulfate 90 mcg/actuation 2 puff inhalation Q6H PRN 04/13/22 aerosol inhaler shortness of breath or wheezing #18 grams budesonide-formoterol HFA 160 2 puff inhalation BID #1 inhaler 05/27/22 mcg-4.5 mcg/actuation aerosol inhaler (Symbicort) atorvastatin 80 mg tablet 80 mg PO HS #90 tabs 10/23/22 empagliflozin 10 mg tablet 10 mg PO DAILY #90 tabs 10/23/22 omeprazole 20 mg capsule,delayed 20 mg PO BID #180 caps 12/07/22 release liothyronine 5 mcg tablet 5 mcg PO BID #180 tabs 03/03/23 spironolactone 100 mg tablet 100 mg PO QAM #90 tabs 05/26/23 lisinopril 40 mg tablet 40 mg PO QAM #90 tabs 05/31/23 amlodipine 5 mg tablet 5 mg PO DAILY #90 tabs 06/04/23 torsemide 20 mg tablet 30 mg (1.5 x 20 mg) PO QAM #135 06/23/23 tabs tirzepatide 7.5 mg/0.5 mL 7.5 mg (0.5 mL) subcut Q7D #2 mL 08/25/23 subcutaneous pen injector (Marcin) Results & Data (ED) Vital Signs Vital Signs - 24 hr 10/02/23 11:23 10/02/23 11:54 10/02/23 12:00 Temperature 36.5 C Temperature Source Oral Pulse Rate 84 81 Pulse Rate from SpO2 Sensor 81 Respiratory Rate 18 20 Respiratory Effort / Characteristics Non-Labored Respiratory Depth Normal Respiratory Pattern Regular Blood Pressure 98/60 L 98/62 L Blood Pressure Mean 72 66 Pulse Oximetry 93 92 Oxygen Delivery Method Nasal Cannula Oxygen Flow Rate 2 Sepsis Recent Fever Within 48 Hours No Sepsis New/Unexplained Change in Mental Status N/A Sepsis Action Taken by Nursing No Action Required 10/02/23 12:03 10/02/23 12:14 10/02/23 12:15 Temperature Temperature Source Pulse Rate 85 79 Pulse Rate from SpO2 Sensor 86 78 Respiratory Rate 23 20 Respiratory Effort / Characteristics Respiratory Depth Respiratory Pattern Blood Pressure 81/48 L Blood Pressure Mean 55 Pulse Oximetry 94 93 Oxygen Delivery Method Oxygen Flow Rate Sepsis Recent Fever Within 48 Hours Sepsis New/Unexplained Change in Mental Status Sepsis Action Taken by Nursing 10/02/23 12:18 10/02/23 12:20 10/02/23 12:27 Temperature Temperature Source Pulse Rate 76 77 Pulse Rate from SpO2 Sensor 76 Respiratory Rate 28 H Respiratory Effort / Characteristics Respiratory Depth Respiratory Pattern Blood Pressure 101/56 L Blood Pressure Mean 79 Pulse Oximetry 93 Oxygen Delivery Method Oxygen Flow Rate Sepsis Recent Fever Within 48 Hours Sepsis New/Unexplained Change in Mental Status Sepsis Action Taken by Nursing 10/02/23 12:30 10/02/23 12:51 10/02/23 13:06 Temperature Temperature Source Pulse Rate 81 76 78 Pulse Rate from SpO2 Sensor 75 77 Respiratory Rate 19 23 26 H Respiratory Effort / Characteristics Respiratory Depth Respiratory Pattern Blood Pressure Blood Pressure Mean Pulse Oximetry 94 95 Oxygen Delivery Method Oxygen Flow Rate Sepsis Recent Fever Within 48 Hours Sepsis New/Unexplained Change in Mental Status Sepsis Action Taken by Nursing 10/02/23 13:07 10/02/23 13:15 10/02/23 13:27 Temperature Temperature Source Pulse Rate 72 77 Pulse Rate from SpO2 Sensor 72 74 Respiratory Rate 21 18 Respiratory Effort / Characteristics Respiratory Depth Respiratory Pattern Blood Pressure 116/67 Blood Pressure Mean 86 Pulse Oximetry 95 97 Oxygen Delivery Method Oxygen Flow Rate Sepsis Recent Fever Within 48 Hours Sepsis New/Unexplained Change in Mental Status Sepsis Action Taken by Nursing 10/02/23 13:30 10/02/23 13:45 10/02/23 13:46 Temperature Temperature Source Pulse Rate 73 Pulse Rate from SpO2 Sensor 72 Respiratory Rate 20 Respiratory Effort / Characteristics Respiratory Depth Respiratory Pattern Blood Pressure 85/64 L 98/39 L Blood Pressure Mean 67 56 Pulse Oximetry 96 Oxygen Delivery Method Oxygen Flow Rate Sepsis Recent Fever Within 48 Hours Sepsis New/Unexplained Change in Mental Status Sepsis Action Taken by Nursing 10/02/23 14:00 10/02/23 14:03 10/02/23 14:12 Temperature Temperature Source Pulse Rate 75 76 Pulse Rate from SpO2 Sensor 73 75 Respiratory Rate 21 28 H Respiratory Effort / Characteristics Respiratory Depth Respiratory Pattern Blood Pressure 86/56 L Blood Pressure Mean 67 Pulse Oximetry 97 95 Oxygen Delivery Method Oxygen Flow Rate Sepsis Recent Fever Within 48 Hours Sepsis New/Unexplained Change in Mental Status Sepsis Action Taken by Nursing 10/02/23 14:15 10/02/23 14:22 10/02/23 14:30 Temperature Temperature Source Pulse Rate 79 78 Pulse Rate from SpO2 Sensor 80 78 Respiratory Rate 25 H 21 Respiratory Effort / Characteristics Respiratory Depth Respiratory Pattern Blood Pressure 114/62 Blood Pressure Mean 76 Pulse Oximetry 95 94 Oxygen Delivery Method Oxygen Flow Rate Sepsis Recent Fever Within 48 Hours Sepsis New/Unexplained Change in Mental Status Sepsis Action Taken by Nursing 10/02/23 14:30 10/02/23 14:42 10/02/23 14:45 Temperature Temperature Source Pulse Rate 79 Pulse Rate from SpO2 Sensor 78 Respiratory Rate 14 Respiratory Effort / Characteristics Respiratory Depth Respiratory Pattern Blood Pressure 100/77 119/73 Blood Pressure Mean 82 82 Pulse Oximetry 96 Oxygen Delivery Method Oxygen Flow Rate Sepsis Recent Fever Within 48 Hours Sepsis New/Unexplained Change in Mental Status Sepsis Action Taken by Nursing 10/02/23 14:45 10/02/23 14:48 10/02/23 15:01 Temperature Temperature Source Pulse Rate 77 Pulse Rate from SpO2 Sensor 75 Respiratory Rate 19 Respiratory Effort / Characteristics Respiratory Depth Respiratory Pattern Blood Pressure 119/73 84/51 L Blood Pressure Mean 82 56 Pulse Oximetry 96 Oxygen Delivery Method Oxygen Flow Rate Sepsis Recent Fever Within 48 Hours Sepsis New/Unexplained Change in Mental Status Sepsis Action Taken by Nursing 10/02/23 15:09 10/02/23 15:12 10/02/23 15:15 Temperature Temperature Source Pulse Rate 63 74 71 Pulse Rate from SpO2 Sensor 65 74 70 Respiratory Rate 21 22 20 Respiratory Effort / Characteristics Respiratory Depth Respiratory Pattern Blood Pressure Blood Pressure Mean Pulse Oximetry 97 97 97 Oxygen Delivery Method Oxygen Flow Rate Sepsis Recent Fever Within 48 Hours Sepsis New/Unexplained Change in Mental Status Sepsis Action Taken by Nursing 10/02/23 15:16 Temperature Temperature Source Pulse Rate Pulse Rate from SpO2 Sensor Respiratory Rate Respiratory Effort / Characteristics Respiratory Depth Respiratory Pattern Blood Pressure 101/46 L Blood Pressure Mean 61 Pulse Oximetry Oxygen Delivery Method Oxygen Flow Rate Sepsis Recent Fever Within 48 Hours Sepsis New/Unexplained Change in Mental Status Sepsis Action Taken by Nursing Laboratory Data 10/02/23 11:36 10/02/23 11:36 Lab Results 10/02/23 10/02/23 Range/Units 11:36 12:10 WBC 16.44 H (4.8-10.8) K/ul RBC 5.03 (4.70-6.10) M/uL Hgb 13.6 L (14.0-18.0) g/dl Hct 43.5 (42.0-52.0) % MCV 86.5 (80.0-100.0) fL MCH 27.0 (25.0-34.0) pg MCHC 31.3 L (32.0-36.0) g/dL RDW Std Deviation 49.6 H (36.4-46.3) fL RDW Coeff of Jay 15.7 H (11.5-14.5) % Plt Count 371 (130-400) K/uL MPV 10.4 (9.4-12.4) fL Immature Gran % (Auto) 0.5 % Neut % (Auto) 61.6 % Lymph % (Auto) 18.2 % [place] % (Auto) 9.2 % Eos % (Auto) 10.2 % Baso % (Auto) 0.3 % Neut # (Auto) 10.11 H (1.40-6.50) K/uL Lymph # (Auto) 3.00 (1.20-3.40) K/uL [place] # (Auto) 1.52 H (0.11-0.59) K/uL Eos # (Auto) 1.68 H (0.00-0.50) K/uL Baso # (Auto) 0.05 (0.00-0.20) K/uL Immature Gran # (Auto) 0.08 (0.01-0.20) K/uL VBG pH 7.32 L (7.36-7.41) VBG pCO2 48 (38-50) mmHg VBG pO2 34 mmHg VBG HCO3 25 mmol/L VBG O2 Saturation 60.5 % VBG Base Excess -1.8 mEq/L Sodium 138 (136-145) mmol/L Potassium 4.9 (3.5-5.1) mmol/L Chloride 101 (98-107) mmol/L Carbon Dioxide 28 (21-32) mmol/L Anion Gap 9 (3-11) BUN 42 H (6-23) mg/dl Creatinine 3.21 H (0.6-1.4) mg/dl Est Cr Clr Drug Dosing 37.1 ml/min Est GFR ( Amer) 24.0 ml/min Est GFR (Non-Af Amer) 20.7 ml/min BUN/Creatinine Ratio 13.1 (10-20) Glucose 96 (70-99(Fasting)) mg/dl Calcium 9.2 (8.6-10.3) mg/dl Total Bilirubin 0.4 (0.2-1.0) mg/dl Direct Bilirubin 0.0 (0-0.2) mg/dl AST 15 (13-39) U/L ALT 15 (7-52) U/L Alkaline Phosphatase 76 (34-104) U/L Troponin I High Sens 5.0 (0-20) pg/ml Total Protein 7.7 (6.0-8.3) gm/dl Albumin 4.0 (3.4-5.0) gm/dl Lipase 61 (11-82) U/L Procalcitonin 0.17 (0-0.5) ng/ml Administered Medications Lactated Ringer's (Lr) 1,000 mls @ 80 mls/hr IV .[id number] [facility] Stop: 10/02/23 22:14 Last Admin: 10/02/23 16:55 Dose: 80 mls/hr Documented By: EVELYN Insulin Aspart (Insulin Aspart Per Unit Charge) 0 units SC ACHS [facility] Stop: 11/01/23 16:29 Last Admin: 10/02/23 17:01 Dose: Not Given Documented By: TRE Co-signed By: EVELYN Imaging Data Radiologist's Impression: Abdomen/Pelvis CT 10/02/23 12:41 CT abd pelvis wo con CLINICAL HISTORY: N/V, SBO, uri, single kidney TECHNIQUE: Helical axial images of the abdomen and pelvis were obtained. Automated dose lowering techniques and/or adjustment according to patient size were utilized for this exam. This exam was performed without intravenous contrast. CT DOSE: 1636.95 mGy.cm COMPARISON: Comparison is made to CT abdomen pelvis 11/07/2017 FINDINGS: Lower chest: Partial visualization of gynecomastia pleural fat, and atelectasis. Liver: Hepatic steatosis is noted. Gallbladder and biliary tree: No calcified gallstones. Normal caliber wall. No intra- or extrahepatic biliary ductal dilation. Pancreas: Unremarkable, no focal lesions. Spleen: Unremarkable. Adrenals: Unremarkable. Kidneys and ureters: Status post right nephrectomy. Bladder: Unremarkable. Reproductive organs: Unremarkable. Bowel: The appendix is normal. Lymph nodes Retroperitoneal: Subcentimeter liliana hepatis and retroperitoneal nodes are noted. Pelvic: Unremarkable. Mesenteric: Unremarkable. Peritoneum: Normal. Vessels: Unremarkable. Abdominal wall: Bilateral fat-containing inguinal hernias are seen. Bones: Degenerative changes in the visualized spine. IMPRESSION: No evidence of acute abnormality and in particular no small bowel obstruction is seen. ACT 112: Negative or not required by law. Electronically signed by: Otto Bruner M.D. 10/02/2023 2:51 PM Discharge Plan Visit Data Chief Complaint: Referred by Doctor Stated Complaint: NAUSEA, POSSIBLE KIDNEY PROBLEMS ED Provider: Jannet Camarena Discharge Problem: Hypotension, URI (acute kidney injury) Patient Disposition: Admitted As Inpatient Discharge Instructions Interventions: ED Discharge Assessment Last Done: 10/02/23 17:21
--- NOTE | 2023-10-02 13:34 | Electrocardiogram Report ---
Test Reason : Blood Pressure : / mmHG Vent. Rate : 073 BPM Atrial Rate : 073 BPM P-R Int : 140 ms QRS Dur : 088 ms QT Int : 380 ms P-R-T Axes : 021 -33 040 degrees QTc Int : 418 ms Normal sinus rhythm Left axis deviation Abnormal ECG When compared with ECG of 16-JUL-2022 15:38, No significant change was found Confirmed by Rahul Martinez ([id number]) on 10/02/2023 1:34:04 PM Referred By: Confirmed By:Rahul Martinez
--- NOTE | 2023-10-02 14:54 | CT Scan Report ---
CT abd pelvis wo con CLINICAL HISTORY: N/V, SBO, madan, single kidney TECHNIQUE: Helical axial images of the abdomen and pelvis were obtained. Automated dose lowering tech niques and/or adjustment according to patient size were utilized for this exam. This exam was perfor med without intravenous contrast. CT DOSE: 1636.95 mGy.cm COMPARISON: Comparison is made to CT abdomen pelvis 11/07/2017 FINDINGS: Lower chest: Partial visualization of gynecomastia pleural fat, and atelectasis. Liver: Hepatic steatosis is noted. Gallbladder and biliary tree: No calcified gallstones. Normal caliber wall. No intra- or extrahepatic biliary ductal dilation. Pancreas: Unremarkable, no focal lesions. Spleen: Unremarkable. Adrenals: Unremarkable. Kidneys and ureters: Status post right nephrectomy. Bladder: Unremarkable. Reproductive organs: Unremarkable. Bowel: The appendix is normal. Lymph nodes Retroperitoneal: Subcentimeter liliana hepatis and retroperitoneal nodes are noted. Pelvic: Unremarkable. Mesenteric: Unremarkable. Peritoneum: Normal. Vessels: Unremarkable. Abdominal wall: Bilateral fat-containing inguinal hernias are seen. Bones: Degenerative changes in the visualized spine. IMPRESSION: No evidence of acute abnormality and in particular no small bowel obstruction is seen. ACT 112: Negative or not required by law. Electronically signed by: Otto Bruner M.D. 10/02/2023 2:51 PM
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
[2023-10-02 15:59] LABS: Appearance Urine Clear (Clear); Bilirubin Urine Negative (Negative); Blood Urine Negative (Negative); Color Urine Dark Yellow; Glucose Urine UA Negative (Negative); Ketones Urine Trace (Negative); Leukocyte Esterase Urine Negative (Negative); Nitrite Urine Negative (Negative); Protein Urine Negative (Negative); Specific Gravity Urine 1.018 (1.000-1.030); Urobilinogen Urine Negative (Negative)
[2023-10-02] MEDS ORDERED: GLUCAGON FOR INJ 1 MG VIAL SQ PRN (16:07)
[2023-10-02] MEDS ORDERED: GLUCOSE 40% GEL 15 GM TUBE PO PRN (16:07)
[2023-10-02] MEDS ORDERED: CARBOHYDRATES FOR HYPOGLYCEMIA PO PRN (16:07)
[2023-10-02] MEDS ORDERED: GLUCOSE 10 TAB/TUBE PO PRN (16:07)
[2023-10-02] MEDS ORDERED: DEXTROSE 50% 50 ML SYRINGE IV PRN (16:07)
[2023-10-02] MEDS: LACTATED RINGER'S 1,000 ML IV SCH (16:55)
[2023-10-02] MEDS: INSULIN ASPART PER UNIT CHARGE SC SCH (17:01)
[2023-10-02] MEDS ORDERED: ACETAMINOPHEN 325 MG TAB PO PRN (17:58)
[2023-10-02] MEDS ORDERED: ALBUTEROL HFA 8 GM INHALER INH PRN (17:58)
[2023-10-02] MEDS ORDERED: POLYETHYLENE (MIRALAX) 17 GM PACK PO PRN (17:58)
[2023-10-02] MEDS: LACTATED RINGER'S 500 ML IV ONE (19:37)
[2023-10-02] MEDS: carvediloL 6.25 MG TAB PO SCH (19:49)
[2023-10-02] MEDS: ATORVASTATIN 40 MG TAB PO SCH (21:44)
[2023-10-02] MEDS: PANTOprazole 40 MG TAB PO SCH (21:45)
[2023-10-02] MEDS: LIOTHYRONINE SODIUM 5 MCG TAB PO SCH (21:45)
[2023-10-02] MEDS: HEPARIN SOD 5,000 UNIT/0.5 ML VIAL SQ SCH (21:47)
[2023-10-02] MEDS: FLUTICASONE/VILANTEROL 100/25MCG 14 PUFFS/INHALER INH SCH (21:49)
[2023-10-02] MEDS: LANTUS PER UNIT CHARGE SQ SCH (22:02)
[2023-10-03] MEDS: LEVOTHYROXINE SODIUM 200 MCG TABLET PO SCH (05:45)
[2023-10-03 08:37] LABS: Anion Gap 7 (3-11); BUN Creatinine Ratio 16.1 (10-20); Blood Urea Nitrogen 41 mg/dl (6-23); Calcium 8.4 mg/dl (8.6-10.3); Carbon Dioxide 25 mmol/L (21-32); Chloride 104 mmol/L (98-107); Creatinine Clr Calc Pharmacy 46.8 ml/min; Est GFR (African American) 31.9 ml/min; Est GFR (Non-African American) 27.5 ml/min; Glucose 83 mg/dl (70-99(Fasting)); Sodium 136 mmol/L (136-145)
[2023-10-03 08:49] LABS: Thyroid Stimulating Hormone 1.851 uIu/ml (0.300-4.500)
[2023-10-03] MEDS: FERROUS SULFATE 325 MG TAB PO SCH (09:11)
[2023-10-03] MEDS: amLODIPine BESYLATE 5 MG TAB PO SCH (09:11)
[2023-10-03 09:13] LABS: Basophils # (auto) 0.06 K/uL (0.00-0.20); Basophils % (auto) 0.4 %; Eosinophils # (auto) 2.04 K/uL (0.00-0.50); Eosinophils % (auto) 13.1 %; Hematocrit (blood only) 41.1 % (42.0-52.0); Immature Granulocytes # (auto) 0.09 K/uL (0.01-0.20); Immature Granulocytes % (auto) 0.6 %; Lymphocytes # (auto) 2.52 K/uL (1.20-3.40); Lymphocytes % (auto) 16.2 %; Mean Corpuscular Hemoglobin 27.5 pg (25.0-34.0); Mean Corpuscular Hgb Conc 31.6 g/dL (32.0-36.0); Mean Corpuscular Volume 87.1 fL (80.0-100.0); Mean Platelet Volume 10.5 fL (9.4-12.4); Monocytes # (auto) 1.07 K/uL (0.11-0.59); Monocytes % (auto) 6.9 %; Neutrophils # (auto) 9.75 K/uL (1.40-6.50); Neutrophils % (auto) 62.8 %; Platelet Count 294 K/uL (130-400); RDW Coefficient of Variation 15.7 % (11.5-14.5); RDW Standard Deviation 49.7 fL (36.4-46.3); Red Blood Count 4.72 M/uL (4.70-6.10); White Blood Count 15.53 K/ul (4.8-10.8)
--- NOTE | 2023-10-03 10:48 | Hospitalist Progress Note ---
Date of Service October 03, 2023 Assessment & Plan (1) URI (acute kidney injury): Plan: Suspect prerenal - Minimal to no p.o. intake following up titration of Tirzepatide from 5 mg to 7.5 mg 1 month ago, and continue on multiple diuretics. Tirzepatide held. Creatine 3.21 on admission, baseline~1.34 - Received 3.5L total IVF, hold additional fluids with hx of CHF, and now tolerating PO intake Hold torsemide, spironolactone, lisinopril - renally adjust medications Suspect leukocytosis is demargination. There is no left shift/immature granulocytic expansion. He has had no fevers, no respiratory symptoms. - afebrile, WBC improving Hyperkalemia 5.5 - lowkalema TID, low K diet - recheck BMP this afternoon - 5.5, continue lokalema and give albuterol - recheck AM BMP AM BMP PT/OT (2) Type 2 diabetes mellitus with albuminuria: Plan: Hold SGLT2/metformin. Patient is on Tirzepatide weekly - recent dose increase likely cause of symptoms. Reevaluate resuming at lower dose vs holding prior to d/c Basal bolus SSI while inpatient Goal BSG [id number] BSG ACHS (3) COPD (chronic obstructive pulmonary disease): Plan: History of COPD, chronic hypoxic respiratory failure Baseline 1 L oxygen, BiPAP at night with 4 L oxygen bleed continued Albuterol as needed, continue Symbicort No acute exacerbation Patient wears his bipap most often for comfort (4) Chronic right-sided congestive heart failure: Plan: History of CHF with EF 65 to 70% 1 year ago patient had a PEA arrest in the setting of respiratory failure requiring intubation. Denies chest pain/anginal symptoms Troponin on admission is negative No evidence of CHF exacerbation - volume contracted at admission Plan nursing documentation - black stools, possibly due to iron supplementation but fecal occult added Chronic stable issues: Hyperlipidemia: Continue statin Obesity: BMI 49 Nonalcoholic fatty liver disease: Without evidence of hepatic decompensation Hypothyroidism: Continue Synthroid, liothyronine. TSH WNL CARLITOS: Continue BiPAP with oxygen bleed at night Iron deficiency anemia: Continue iron GERD: Continue Pepcid twice daily, prn tums DVT prophylaxis: Heparin Disposition: continue inpatient stay trending BMP Admission and Anticipated Discharge Date Admission Date: October 02, 2023 Supervising Physician Co-Signing Physician Notes SHEYLA Supervision Note: I did not personally see or examine the patient today, but I verified all barnes points of SHEYLA Barraza's assessment and plan with the following exceptions/additions: None Subjective Patient seen sitting up in the chair, wearing bipap. No family present at bedside States that he normally wears his bipap because it is easier to breathe and if he falls asleep then he just has it on. nausea has improved does have heartburn - does not feel like the protonix works as well as the omperazole leg swelling is stable per patient disucssed hyperkalemia - does not think he has had that issue before Telemetrysinus rhythm in the 70s Review of Systems Review of Systems: All systems reviewed & are unremarkable except as noted in Subjective Physical Exam Physical Exam: General: NAD, obese, VS as above Resp: normal respiratory effort, wearing bipap. diminished in the bases CV: RRR, no murmur, Abd: normal bowel sounds, non tender, no hepatosplenomegaly Extremities: Moves all extremities, 2+ edema Neuro: A&O x3, Skin: scaling and scabs to bilateral legs, patient states these are not new Results & Data Results & Data Vital Signs (Past 12 Hours) Vital Signs Temp Pulse Pulse Resp BP Pulse Ox O2 Del Method 10/03/23 10:23 CPAP 10/03/23 07:42 36.6 C 78 18 116/69 95 BiPAP 10/03/23 03:06 36.9 C 78 20 97/60 L 96 BiPAP 10/03/23 01:00 84 L Room Air 10/02/23 23:31 37 C 76 20 109/67 94 BiPAP 10/02/23 23:00 76 O2 Flow Rate 10/03/23 10:23 4 10/03/23 07:42 10/03/23 03:06 4 10/03/23 01:00 10/02/23 23:31 4 10/02/23 23:00 Laboratory Results CBC and chemistry reviewed. TSH reviewed. UA reviewed. PG Care Time/CCT Total # of Minutes Spent Total Time Spent with Patient: Total time spent is greater than 50% in coordination of care (as documented) at patient's floor/unit and/or counseling patient: Coding Level of Care Code 47873 SUB INP/OBS CARE 3/50MIN Diagnoses URI (acute kidney injury) N17.9 Type 2 diabetes mellitus with albuminuria E11.29; R80.9 COPD (chronic obstructive pulmonary disease) J44.9 COPD type: unspecified COPD Chronic right-sided congestive heart failure I50.812 (3) COPD (chronic obstructive pulmonary disease) COPD type: unspecified COPD Qualified Code(s): J44.9 - Chronic obstructive pulmonary disease, unspecified
[2023-10-03] MEDS: SODIUM ZIRCONIUM CYCLOSILICATE 10 GM PACKET PO SCH (11:07)
[2023-10-03] MEDS: CALCIUM CARBONATE 500 MG CHEWABLE TAB PO PRN (11:07)
[2023-10-03 16:13] LABS: BUN Creatinine Ratio 18.6 (10-20); Calcium 8.6 mg/dl (8.6-10.3); Creatinine Clr Calc Pharmacy 50.3 ml/min; Est GFR (African American) 34.9 ml/min; Est GFR (Non-African American) 30.1 ml/min; Potassium 5.5 mmol/L (3.5-5.1)
[2023-10-03] MEDS: ALBUTEROL 0.5% NEB SOLN 2.5 MG/0.5 ML VIAL NEB PRN (16:58)
[2023-10-03 19:45] LABS: Adenovirus F 40/41 PCR Not Detected (NotDetected); Astrovirus PCR Not Detected (NotDetected); Campylobacter PCR Not Detected (NotDetected); Cryptosporidium PCR Not Detected (NotDetected); Cyclospora cayetanensis PCR Not Detected (NotDetected); Entamoeba histolytica PCR Not Detected (NotDetected); Enteroaggregative E.coli(EAEC) Not Detected (NotDetected); Enteropathogenic E.coli (EPEC) Not Detected (NotDetected); Enterotoxigenic E.coli (ETEC) Not Detected (NotDetected); Giardia lamblia PCR Not Detected (NotDetected); Norovirus GI/GII PCR Not Detected (NotDetected); Plesiomonas shigelloides PCR Not Detected (NotDetected); Rotavirus A PCR Not Detected (NotDetected); Salmonella PCR Not Detected (NotDetected); Sapovirus PCR Not Detected (NotDetected); Shiga-like Toxin E.coli (STEC) Not Detected (NotDetected); Shigella/Enteroinvasive E.coli Not Detected (NotDetected); Vibrio cholerae PCR Not Detected (NotDetected); Vibrio species PCR Not Detected (NotDetected); Yersinia enterocolitica PCR Not Detected (NotDetected)
[2023-10-04 09:03] LABS: Basophils # (auto) 0.06 K/uL (0.00-0.20); Basophils % (auto) 0.3 %; Eosinophils % (auto) 15.7 %; Hematocrit (blood only) 40.6 % (42.0-52.0); Hemoglobin 12.7 g/dl (14.0-18.0); Immature Granulocytes # (auto) 0.13 K/uL (0.01-0.20); Immature Granulocytes % (auto) 0.8 %; Lymphocytes # (auto) 2.05 K/uL (1.20-3.40); Lymphocytes % (auto) 11.9 %; Mean Corpuscular Hemoglobin 27.4 pg (25.0-34.0); Mean Corpuscular Hgb Conc 31.3 g/dL (32.0-36.0); Mean Corpuscular Volume 87.5 fL (80.0-100.0); Mean Platelet Volume 10.6 fL (9.4-12.4); Monocytes # (auto) 1.22 K/uL (0.11-0.59); Monocytes % (auto) 7.1 %; Neutrophils # (auto) 11.02 K/uL (1.40-6.50); Neutrophils % (auto) 64.2 %; Platelet Count 293 K/uL (130-400); RDW Coefficient of Variation 15.7 % (11.5-14.5); RDW Standard Deviation 49.9 fL (36.4-46.3); Red Blood Count 4.64 M/uL (4.70-6.10); White Blood Count 17.18 K/ul (4.8-10.8)
[2023-10-04 09:32] LABS: BUN Creatinine Ratio 19.9 (10-20); Blood Urea Nitrogen 37 mg/dl (6-23); Calcium 8.5 mg/dl (8.6-10.3); Carbon Dioxide 28 mmol/L (21-32); Chloride 104 mmol/L (98-107); Creatinine Clr Calc Pharmacy 63.5 ml/min; Est GFR (African American) 46.5 ml/min; Est GFR (Non-African American) 40.1 ml/min; Glucose 93 mg/dl (70-99(Fasting))
[2023-10-04 10:12] LABS: Potassium 5.4 mmol/L (3.5-5.1)
--- NOTE | 2023-10-04 11:10 | Hospitalist Progress Note ---
Date of Service October 04, 2023 Assessment & Plan (1) URI (acute kidney injury): Plan: Patient originally presented to ED on 10/01 with chief complaint of 1 week nausea/vomiting. He was found to have acutely elevated creatinine of 3.21 on admission. (baseline 1.3) -Likely pre-renal. Minimal to no PO intake following up titration of Tirzepatide from 5mg to 7.5mg 1 month ago and continued on multiple Diuretics. -Hold Tirzepatide. -Recieved 3.5L IVF total, hold additional fluids given CHF hx & tolerating PO intake -Renally adjust medications -avoid nephrotoxic agents -Hold torsemide, spironolactone, lisinopril. -suspect leukocytosis is demargination. No left shift/immature granulocytic expansion. -patient without fevers, no respiratory symptoms. Afebrile -reviewed CBC 10/03: WBC 17.18 -Reviewed BMP 10/03: creatinine 1.86, BUN 37 -Reviewed PT/OT evaluations 10/03: patient at baseline. AM CBC BMP, Magnesium (2) Hyperkalemia: Plan: Upon admission patient found to be hyperkalemic with K of 3.5 -Reviewed BMP 10/03: K 5.4 -Lokalema three times daily -Albuterol -Consulted nephrology, appreciate recomendations. (3) Type 2 diabetes mellitus with albuminuria: Plan: A1c 05/26/23: 6.6. Hold SGLT2/metformin. - Patient is on Tirzepatide weekly - recent dose increase likely cause of symptoms. Reevaluate resuming at lower dose vs holding prior to d/c Basal bolus SSI while inpatient Goal BSG [id number] BSG ACHS (4) Chronic right-sided congestive heart failure: Plan: History of CHF with EF 65 to 70% 1 year ago patient had a PEA arrest in the setting of respiratory failure requiring intubation. Denies chest pain/anginal symptoms Troponin on admission is negative No evidence of CHF exacerbation - volume contracted at admission Plan nursing documentation 10/02- black stools, possibly due to iron supplementation but fecal occult added -reviewed FOBT negative 10/03. Chronic stable issues: Hyperlipidemia: Continue statin Obesity: BMI 49 Nonalcoholic fatty liver disease: Without evidence of hepatic decompensation Hypothyroidism: Continue Synthroid, liothyronine. TSH WNL CARLITOS: Continue BiPAP with oxygen bleed at night Iron deficiency anemia: Continue iron GERD: Continue Pepcid twice daily, prn tums DVT prophylaxis: Heparin Disposition: continue inpatient stay trending BMP Admission and Anticipated Discharge Date Admission Date: October 02, 2023 Subjective Patient seen and examined this morning at bedside. Patient denies any complaints today. He was wearing his BiPAP at time of encounter. He denies chest pain, shortness of breath, leg edema. Potassium still elevated at 5.4 today. Nephrology was consulted due to this. Patient is anxious to return home. Physical Exam 2 Constitutional: WD/WN, vitals as above Eyes: PERRL, conjunctivae normal, anicteric sclerae Respiratory: normal respiratory effort, lungs clear to auscultation Cardiovascular: RRR, no murmur, no edema Skin: no rashes, warm and dry Psychiatric: A+Ox3, euthymic affect Results & Data Results & Data Vital Signs (Past 12 Hours) Vital Signs Temp Pulse Pulse Resp BP Pulse Ox O2 Del Method 10/04/23 07:56 74 10/04/23 07:35 36.9 C 83 17 144/79 H 94 BiPAP 10/04/23 07:13 BiPAP 10/04/23 04:09 37.4 C 68 18 123/70 93 BiPAP O2 Flow Rate 10/04/23 07:56 10/04/23 07:35 4 10/04/23 07:13 4 10/04/23 04:09 Laboratory Results 10/04/23 08:32 10/04/23 09:35 PG Care Time/CCT Total # of Minutes Spent Total Time Spent with Patient: Total time spent is greater than 50% in coordination of care (as documented) at patient's floor/unit and/or counseling patient: Coding Level of Care Code 12050 SUB INP/OBS CARE 2/35MIN Diagnoses URI (acute kidney injury) N17.9 Hyperkalemia E87.5 Type 2 diabetes mellitus with albuminuria E11.29; R80.9 Chronic right-sided congestive heart failure I50.812
[2023-10-04 17:29] LABS: Calcium 8.5 mg/dl (8.6-10.3); Potassium 5.5 mmol/L (3.5-5.1)
[2023-10-04 17:34] LABS: BUN Creatinine Ratio 20.9 (10-20); Creatinine Clr Calc Pharmacy 66.7 ml/min; Est GFR (African American) 49.4 ml/min; Est GFR (Non-African American) 42.6 ml/min
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
[2023-10-05 07:59] LABS: Basophils # (auto) 0.08 K/uL (0.00-0.20); Basophils % (auto) 0.6 %; Eosinophils # (auto) 3.33 K/uL (0.00-0.50); Eosinophils % (auto) 23.5 %; Hematocrit (blood only) 37.4 % (42.0-52.0); Hemoglobin 11.9 g/dl (14.0-18.0); Immature Granulocytes # (auto) 0.15 K/uL (0.01-0.20); Immature Granulocytes % (auto) 1.1 %; Lymphocytes # (auto) 2.68 K/uL (1.20-3.40); Lymphocytes % (auto) 18.9 %; Mean Corpuscular Hemoglobin 27.5 pg (25.0-34.0); Mean Corpuscular Hgb Conc 31.8 g/dL (32.0-36.0); Mean Corpuscular Volume 86.6 fL (80.0-100.0); Mean Platelet Volume 10.3 fL (9.4-12.4); Monocytes # (auto) 0.91 K/uL (0.11-0.59); Monocytes % (auto) 6.4 %; Neutrophils % (auto) 49.5 %; Platelet Count 240 K/uL (130-400); RDW Coefficient of Variation 15.6 % (11.5-14.5); RDW Standard Deviation 49.6 fL (36.4-46.3); Red Blood Count 4.32 M/uL (4.70-6.10); White Blood Count 14.15 K/ul (4.8-10.8)
[2023-10-05 08:14] LABS: BUN Creatinine Ratio 18.5 (10-20); Calcium 8.2 mg/dl (8.6-10.3); Creatinine Clr Calc Pharmacy 75.1 ml/min; Est GFR (African American) 57.1 ml/min; Est GFR (Non-African American) 49.2 ml/min; Magnesium 1.6 mg/dl (1.7-2.4); Potassium 4.5 mmol/L (3.5-5.1)
[2023-10-05] MEDS: MAGNESIUM SULFATE / D5W 1 GM/100 ML BAG IV ONE (10:02)
[2023-10-05] MEDS: HYDROCORTISONE 1% OINT 30 GM TUBE EXT STA (10:04)
[2023-10-05] MEDS: HYDROCORTISONE 1% CRM 30 GM TUBE EXT SCH (10:06)
--- NOTE | 2023-10-05 10:29 | Nephrology Progress Note ---
Date of Service October 05, 2023 Assessment & Plan (1) Hyperkalemia: Plan: Improved. Continue to hold lisinopril and spironolactone. Repeat metabolic profile within 1 week of discharge. Low potassium diet. Outpatient follow up with PCP +/- nephrology within 2 weeks of discharge. (2) URI (acute kidney injury): Plan: Non-oliguric. Creatinine improving with supportive care. Clinical presentation consistent with prerenal physiology from intravascular volume depletion. Single left kidney. UA bland. CT without obstruction. Medications are appropriate for kidney function. Maintain low potassium + low sodium diet. Document I/O's. Repeat metabolic profile tomorrow AM. Continue to hold diuretics (torsemide + spironolactone). Hold lisinopril (avoid ELVIN/ARB). Metformin and Jardiance may be restarted. (3) Type 2 diabetes mellitus with albuminuria: Plan: Metformin, empagliflozin, and tirzepatide held. MACR <30 mcg/mg on therapy previously. Baseline creatinine ~1.0-1.3 mg/dL. Close outpatient follow up with PCP will be required. Admission and Anticipated Discharge Date Admission Date: October 02, 2023 Subjective No acute events overnight. No complaints this AM. Review of Systems Review of Systems: All systems reviewed & are unremarkable except as noted in HPI & below Physical Exam Constitutional: well developed; no acute distress Eyes: + anicteric sclerae; no corneal abnormal ity ENMT: Mouth: no oral mucosal abnormality and oral mucous membranes not dry Neck: + thick neck Respiratory: normal respiratory effort Auscultation: lungs clear to auscultation bilaterally Cardiovascular: Rate/Rhythm: regular rate Extremities: + edema Musculoskeletal: Extremities: no cyanosis and no clubbing Skin: normal turgor; no lesions Neurologic: Motor/Sensory: no tremor and no asterixis Psychiatric: Orientation: alert and oriented x 3 Results & Data Vital Signs (Past 12 Hours) Vital Signs Temp Pulse Pulse Resp BP Pulse Ox O2 Del Method 10/05/23 07:56 36.1 C L 66 17 128/79 98 BiPAP 10/05/23 07:20 59 L 10/05/23 05:04 36.6 C 80 20 98/63 L 97 BiPAP 10/05/23 00:01 36.7 C 76 20 128/88 97 CPAP O2 Flow Rate 10/05/23 07:56 4 10/05/23 07:20 10/05/23 05:04 4 10/05/23 00:01 4 Laboratory Results Laboratory Results - last 24 hr 10/04/23 10/04/23 10/04/23 12:29 17:01 17:05 WBC RBC Hgb Hct MCV MCH MCHC RDW Std Deviation RDW Coeff of Jay Plt Count MPV Immature Gran % (Auto) Neut % (Auto) Lymph % (Auto) [place] % (Auto) Eos % (Auto) Baso % (Auto) Neut # (Auto) Lymph # (Auto) [place] # (Auto) Eos # (Auto) Baso # (Auto) Immature Gran # (Auto) Sodium 137 Potassium 5.5 H Chloride 107 Carbon Dioxide 22 Anion Gap 8 BUN 37 H Creatinine 1.77 H Est Cr Clr Drug Dosing 66.7 Est GFR ( Amer) 49.4 Est GFR (Non-Af Amer) 42.6 BUN/Creatinine Ratio 20.9 H Glucose 95 POC Glucose 99 90 Calcium 8.5 L Magnesium Total Creatine Kinase Cortisol AM Sample 10/04/23 10/05/23 10/05/23 22:04 07:28 08:17 WBC 14.15 H RBC 4.32 L Hgb 11.9 L Hct 37.4 L MCV 86.6 MCH 27.5 MCHC 31.8 L RDW Std Deviation 49.6 H RDW Coeff of Jay 15.6 H Plt Count 240 MPV 10.3 Immature Gran % (Auto) 1.1 Neut % (Auto) 49.5 Lymph % (Auto) 18.9 [place] % (Auto) 6.4 Eos % (Auto) 23.5 Baso % (Auto) 0.6 Neut # (Auto) 7.00 H Lymph # (Auto) 2.68 [place] # (Auto) 0.91 H Eos # (Auto) 3.33 H Baso # (Auto) 0.08 Immature Gran # (Auto) 0.15 Sodium 138 Potassium 4.5 Chloride 106 Carbon Dioxide 24 Anion Gap 8 BUN 29 H Creatinine 1.57 H Est Cr Clr Drug Dosing 75.1 Est GFR ( Amer) 57.1 Est GFR (Non-Af Amer) 49.2 BUN/Creatinine Ratio 18.5 Glucose 98 POC Glucose 109 H 104 H Calcium 8.2 L Magnesium 1.6 L Total Creatine Kinase 36 Cortisol AM Sample 19.44 PG Care Time/CCT Total # of Minutes Spent Total Time Spent with Patient: Total time spent is greater than 50% in coordination of care (as documented) at patient's floor/unit and/or counseling patient: Coding Level of Care Code 03167 SUB INP/OBS CARE 3/50MIN Diagnoses Hyperkalemia E87.5 URI (acute kidney injury) N17.9 Type 2 diabetes mellitus with albuminuria E11.29; R80.9
[2023-10-05] MEDS: ONDANSETRON INJ 2 MG/ML 2 ML VIAL IV PRN (13:49)
--- NOTE | 2023-10-05 16:49 | Hospitalist Progress Note ---
Date of Service October 05, 2023 Assessment & Plan (1) URI (acute kidney injury): Plan: ATN due to hypovolemia, dehydration, Tirzepatide titration Patient originally presented to ED on 10/01 with chief complaint of 1 week nausea/vomiting. He was found to have acutely elevated creatinine of 3.21 on admission. (baseline 1.3) -Likely pre-renal. Minimal to no PO intake following up titration of Tirzepatide from 5mg to 7.5mg 1 month ago and continued on multiple Diuretics. -Hold Tirzepatide. -Received 3.5L IVF total, hold additional fluids given CHF hx & tolerating PO intake -Renally adjust medications -avoid nephrotoxic agents -Hold torsemide, spironolactone, lisinopril. -suspect leukocytosis is demargination. No left shift/immature granulocytic expansion. -patient without fevers, no respiratory symptoms. Afebrile -reviewed CBC 10/04: WBC 14.15 -Reviewed BMP 10/04: creatinine 1.57, BUN 29 -reviewed magnesium 10/04: 1.6 -s/p 1 bag magnesium -Reviewed PT/OT evaluations 10/03: patient at baseline. AM CBC BMP, Magnesium (2) Hyperkalemia: Plan: Upon admission patient found to be hyperkalemic with K of 3.5 -Reviewed BMP 10/04: K 4.5 -s/p lokalema -Albuterol -Consulted nephrology, appreciate recommendations. -low potassium diet -hold lisinopril/spironolactone -BMP 1 week following discharge Repeat BMP in AM (3) Type 2 diabetes mellitus with albuminuria: Plan: A1c 05/26/23: 6.6. Per nephrology okay to resume Metformin and Jardiance. - Patient is on Tirzepatide weekly - recent dose increase likely cause of symptoms. Reevaluate resuming at lower dose vs holding prior to d/c Basal bolus SSI while inpatient Goal BSG [id number] BSG ACHS (4) Chronic right-sided congestive heart failure: Plan: History of CHF with EF 65 to 70% 1 year ago patient had a PEA arrest in the setting of respiratory failure requiring intubation. Denies chest pain/anginal symptoms Troponin on admission is negative No evidence of CHF exacerbation - volume contracted at admission Plan nursing documentation 10/02- black stools, possibly due to iron supplementation but fecal occult added -reviewed FOBT negative 10/03. Chronic stable issues: Hyperlipidemia: Continue statin Obesity: BMI 49 Nonalcoholic fatty liver disease: Without evidence of hepatic decompensation Hypothyroidism: Continue Synthroid, liothyronine. TSH WNL CARLITOS: Continue BiPAP with oxygen bleed at night Iron deficiency anemia: Continue iron GERD: Continue Pepcid twice daily, prn tums DVT prophylaxis: Heparin Disposition: continue inpatient stay trending BMP, hopeful for discharge 10/05 pending stabilization of potassium. Admission and Anticipated Discharge Date Admission Date: October 02, 2023 Subjective Patient was seen and examined this morning at bedside. Patient denied any complaints. He was wearing his BiPAP. He denied chest pain or shortness of breath. Reports urinating and defecating okay. Physical Exam 2 Constitutional: WD/WN, vitals as above Eyes: PERRL, conjunctivae normal, anicteric sclerae Respiratory: normal respiratory effort, lungs clear to auscultation Cardiovascular: RRR, no murmur, no edema Skin: no rashes, warm and dry Psychiatric: A+Ox3, euthymic affect Results & Data Results & Data Vital Signs (Past 12 Hours) Vital Signs Temp Pulse Pulse Resp BP Pulse Ox O2 Del Method 10/05/23 15:55 36.6 C 63 16 112/66 96 BiPAP 10/05/23 15:23 72 10/05/23 12:59 BiPAP 10/05/23 11:34 36.8 C 66 17 151/83 H 96 BiPAP 10/05/23 07:56 36.1 C L 66 17 128/79 98 BiPAP 10/05/23 07:20 59 L 10/05/23 05:04 36.6 C 80 20 98/63 L 97 BiPAP O2 Flow Rate 10/05/23 15:55 4 10/05/23 15:23 10/05/23 12:59 4 10/05/23 11:34 4 10/05/23 07:56 4 10/05/23 07:20 10/05/23 05:04 4 Laboratory Results 10/05/23 07:28 10/05/23 07:28 PG Care Time/CCT Total # of Minutes Spent Total Time Spent with Patient: Total time spent is greater than 50% in coordination of care (as documented) at patient's floor/unit and/or counseling patient: Coding Level of Care Code 62437 SUB INP/OBS CARE MIN Diagnoses URI (acute kidney injury) N17.9 Hyperkalemia E87.5 Type 2 diabetes mellitus with albuminuria E11.29; R80.9 Chronic right-sided congestive heart failure I50.812
[2023-10-06 06:19] LABS: BUN Creatinine Ratio 16.7 (10-20); Calcium 8.2 mg/dl (8.6-10.3); Creatinine Clr Calc Pharmacy 81.9 ml/min; Est GFR (African American) 63.4 ml/min; Est GFR (Non-African American) 54.7 ml/min; Magnesium 1.9 mg/dl (1.7-2.4); Potassium 4.5 mmol/L (3.5-5.1)
[2023-10-06 07:58] VITALS: RESP 16; O2SAT 97
[2023-10-06 08:47] LABS: Hematocrit (blood only) 39.9 % (42.0-52.0); Hemoglobin 12.8 g/dl (14.0-18.0); Mean Corpuscular Hemoglobin 27.8 pg (25.0-34.0); Mean Corpuscular Hgb Conc 32.1 g/dL (32.0-36.0); Mean Corpuscular Volume 86.7 fL (80.0-100.0); Mean Platelet Volume 10.6 fL (9.4-12.4); Platelet Count 285 K/uL (130-400); RDW Coefficient of Variation 15.9 % (11.5-14.5); White Blood Count 15.79 K/ul (4.8-10.8)
--- NOTE | 2023-10-06 09:25 | Nephrology Progress Note ---
Date of Service October 06, 2023 Assessment & Plan (1) URI (acute kidney injury): Plan: Non-oliguric. Creatinine improving with supportive care. Clinical presentation consistent with prerenal physiology from intravascular volume depletion. Single left kidney. UA bland. CT without obstruction. Metformin and Jardiance may be restarted. Continue to hold lisinopril if hypotension persists. Lisinopril may be restarted during outpatient follow up with PCP. Maintain low potassium + low sodium diet. Document I/O's. Continue to hold spironolactone. Consider restarting torsemide at a reduced dose (such as 20 mg daily). Repeat metabolic profile within 1 week of discharge. Outpatient follow up with PCP +/- nephrology within 2 weeks of discharge. (2) Type 2 diabetes mellitus with albuminuria: Plan: Metformin and empagliflozin may be restarted. Close outpatient follow up with PCP will be required. Hold ACEi pending outpatient follow up. (3) Hypotension: Plan: BP continues to run low. Matthew denies symptoms. Spironolactone and lisinopril have been held. Volume status is acceptable. I suspect he will require some torsemide at discharge. Consider holding amlodipine pending outpatient monitoring of BP. Admission and Anticipated Discharge Date Admission Date: October 02, 2023 Subjective No acute events overnight. Matthew feels well this morning. He denies significant fluid retention. He is breathing comfortably. Appetite is good. He denies lightheadedness, dizziness, or presyncope. Review of Systems Review of Systems: All systems reviewed & are unremarkable except as noted in HPI & below Physical Exam Constitutional: well developed and + morbidly obese; no acute distress Eyes: + anicteric sclerae; no corneal abnormal ity ENMT: Mouth: no oral mucosal abnormality and oral mucous membranes not dry Neck: + thick neck Respiratory: normal respiratory effort Auscultation: lungs clear to auscultation bilaterally Cardiovascular: Rate/Rhythm: regular rate Heart Sounds: normal S1 and normal S2 Extremities: + edema Musculoskeletal: Extremities: no cyanosis and no clubbing Skin: normal turgor; no lesions Neurologic: Motor/Sensory: no tremor and no asterixis Psychiatric: Orientation: alert and oriented x 3 Results & Data Vital Signs (Past 12 Hours) Vital Signs Temp Pulse Pulse Resp BP BP Pulse Ox 10/06/23 07:57 36.4 C L 68 16 98/61 L 97 10/06/23 07:51 10/06/23 04:09 36.6 C 68 18 118/65 99 10/06/23 00:07 36.6 C 69 18 115/68 98 10/05/23 21:59 74 O2 Del Method O2 Flow Rate 10/06/23 07:57 BiPAP 4 10/06/23 07:51 BiPAP 4 10/06/23 04:09 BiPAP 4 10/06/23 00:07 BiPAP 4 10/05/23 21:59 Laboratory Results Laboratory Results - last 24 hr 10/05/23 10/05/23 10/05/23 12:04 17:05 20:35 WBC RBC Hgb Hct MCV MCH MCHC RDW Std Deviation RDW Coeff of Jya Plt Count MPV Sodium Potassium Chloride Carbon Dioxide Anion Gap BUN Creatinine Est Cr Clr Drug Dosing Est GFR ( Amer) Est GFR (Non-Af Amer) BUN/Creatinine Ratio Glucose POC Glucose 129 H 102 H 103 H Calcium Magnesium 10/06/23 10/06/23 10/06/23 05:36 05:38 08:08 WBC 15.79 H RBC 4.60 L Hgb 12.8 L Hct 39.9 L MCV 86.7 MCH 27.8 MCHC 32.1 RDW Std Deviation 50.0 H RDW Coeff of Jay 15.9 H Plt Count 285 MPV 10.6 Sodium 138 Potassium 4.5 Chloride 106 Carbon Dioxide 28 Anion Gap 4 BUN 24 H Creatinine 1.44 H Est Cr Clr Drug Dosing 81.9 Est GFR ( Amer) 63.4 Est GFR (Non-Af Amer) 54.7 BUN/Creatinine Ratio 16.7 Glucose 98 POC Glucose 98 Calcium 8.2 L Magnesium 1.9 PG Care Time/CCT Total # of Minutes Spent Total Time Spent with Patient: Total time spent is greater than 50% in coordination of care (as documented) at patient's floor/unit and/or counseling patient: Coding Level of Care Code 45708 SUB INP/OBS CARE 3/50MIN Diagnoses URI (acute kidney injury) N17.9 Type 2 diabetes mellitus with albuminuria E11.29; R80.9 Hypotension I95.9
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
[2023-10-06 12:27] VITALS: BP 100/63; TEMP 98.4
[2023-10-06 14:36] VITALS: PULSE 63
== END 2023-10-06 14:57 | disposition home or self-care (01) | DRG 640 ==
LOC: ED 11:22 → 2N 15:23 → SUATTDRO 15:23 → 2N 17:21